=== PATIENT | female | born 1955 | race Caucasian/White ===

== ENCOUNTER 2025-06-12 00:27 | Emergency (ER) | payer MEDICARE, SELFPAY ==
--- OUTSIDE RECORDS SUMMARY | 2025-05-25 09:43 | XMS_ITS | Encounter Summary ---
Author Organization [facility] Address [address] [place] [id number] Care Team Providers Care Administrative Support Assoc Name Role Phone Elaine Russo M.D. Primary Care Provider [phone] Reason for Referral * Outpatient (Routine) - Closed Specialty Diagnoses / Procedures Referred By Wojciech castaneda Referred To Contact Diagnoses Nodule Thyroid Procedures US Thyroid Elaine Russo M.D. [address] [place] [phone] Phone: tel: [facility] Region Referral ID Status Reason Start Date Expiration Date Visits Re quested Visits Authorized [id number] Closed 05/25/2024 05/25/2025 1 1 Reason for Visit * Outpatient (Routine) - Closed Specialty Diagnoses / Procedures Referred By Wojciech castaneda Referred To Contact Diagnoses Nodule Thyroid Procedures US Thyroid Elaine Russo M.D. [address] [place] [phone] Phone: tel: fax: [facility] Region Referral ID Status Reason Start Date Expiration Date Visits Re quested Visits Authorized [id number] Closed 05/25/2024 05/25/2025 1 1 Encounter Details Date Type Department Care Team (Latest Contact Info) Description 05/25/2025 9:43 AM CDT - 05/25/2025 11:59 PM CDT Hospital Encounter Department of Radiology in [address] [phone] Elaine Russo M.D. [address] [place] [phone] Nodule Thyroid Discharge Disposition: Home or Self Care Social History Tobacco Use Types Packs/Day Years Used Date Smoking Tobacco: Former Cigarettes 0 10/31/1981 - 03/05/1986 Passive Smoke Exposure: Never Smokeless Tobacco: Never Comments:Smoked less than 1 pack/ per day, no use since 1983 Alcohol Use Standard Drinks/Week Comments Yes 2 (1 standard drink = 0.6 oz pur e alcohol) Usage of wine or beer rare. Humiliation, Afraid, Rape, and Kick questionnair e Answer Date Recorded Within the last year, have y ou been afraid of your partner or ex-partner? No 05/26/2025 Within the last year, have y ou been humiliated or emotionally abused in other ways by your partner or ex-partner? No Within the last year, have y ou been kicked, hit, slapped, or otherwise physically hurt by your partner or ex-partner? No 05/26/2025 Within the last year, have y ou been raped or forced to have any kind of sexual activity by your partner or ex-partner? No 05/26/2025 Hunger Vital Sign Answer Date Recorded Within the past 12 months, y ou worried that your food would run out before you got the money to buy more. Never true 05/26/20 25 Within the past 12 months, t he food you bought just didn't last and you didn't have money to get more. Never true 05/26/2025 PRAPARE - Transportation Answer Date Re corded In the past 12 months, has l ack of transportation kept you from medical appointments or from getting medications? No 05/04 In the past 12 months, has l ack of transportation kept you from meetings, work, or from getting things needed for daily living? Yes 05/26/2025 [facility] Utilities Answer Date Recorded In the past 12 months has th e electric, gas, oil, or water [employer] threatened to shut off services in your home? No 05/26/2025 Depression Answer Date Recor ded PHQ-9 Total Score (max 27) 10 02/16 Housing Stability Answer Date Recorded What is your living situation today? I have a [facility] place to live 05/26/2025 Education Answer Date Recorded What is the highest level of school you have completed or the highest degree you have received? 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 0 albuterol 90 mcg/actuation inhaler Inhale 2 puffs every 4 (four) hours as needed for wheezing. 8 g 11 4 carboxymethylcellu lose (REFRESH PLUS) 0.5 % ophthalmic solution 1 drop as needed for dry eyes. cephalexin (Keflex) 250 mg capsuleIndications :Cystitis Recurrent Take 1 capsule (250 mg total) by mouth daily. 90 capsule 3 5 11/24/19 26 cholecalciferol (for_VITAMIN D3) 2,000 Unit tablet Take 1 tablet by mouth daily. 7 clotrimazole (LOTRIMIN) 1 % cream Apply 1 Application topically 2 (two) times a day. Apply to rashes. 45 g 3 3 cyanocobalamin (VITAMIN B12) 1,000 mcg tablet Take 1 tablet (1,000 mcg total) by mouth 3 (three) times a week. 100 tablet 11 2 denosumab (PROLIA) 60 mg/mL syringe Inject 1 mL (60 mg total) under the skin every 6 (six) months. 1 mL 02/21/202 2 divalproex (for_DEPAKOTE ER) 500 mg 24 hr tablet Take 2 tablets by mouth at bedtime. 8 DME Gradient compression garments & suppliesIndication s:Lymphedema 4 Unspecified 4 DME Gradient compression garments & suppliesIndication s:Lymphedema DME Order 1 Unspecified 4 dorzolamide-timolo L (Cosopt) 22.3-6.8 mg/mL ophthalmic solution Administer 1 drop into both eyes 2 (two) times a day. 10 mL 11 5 estradioL (Estrace) 0.1 mg/g (0.01%) vaginal cream Apply dime-sized amount to the external urethra 3 nights weekly 42.5 g 5 5 IRON,CARBONYL/ASCO RBIC ACID (VITRON-C ORAL) Take 1 tablet by mouth daily. Anemia 1 latanoprost (Xalatan) 0.005 % ophthalmic solution Administer 1 drop into both eyes at bedtime. 7.5 mL 11 5 multivitamin,tx-mi nerals (Multi-Vitamin HP/Minerals) capsule Take 1 capsule by mouth daily. 1 ondansetron ODT (Zofran-ODT) 4 mg disintegrating tablet Dissolve 1 tablet (4 mg total) in the mouth every 4 (four) hours as needed for nausea for up to 20 doses. for nausea. 20 tablet 5 pantoprazole (Protonix) 40 mg EC tabletIndications: Heartburn TAKE ONE TABLET BY MOUTH EVERY MORNING BEFORE BREAKFAST 90 tablet 3 5 QUEtiapine (SEROqueL) 100 mg tablet Take 2 tablets (200 mg total) by mouth at bedtime. 180 tablet 4 semaglutide (Ozempic) 1 mg/dose (4 mg/3 mL) injectionIndicatio ns:Diabetes Mellitus Type 2 Without Complication (HCC),Morbid Obesity (HCC) Inject 1 mg under the skin every 7 (seven) days. 3 mL 3 5 traMADoL (Ultram) 50 mg tabletIndications: Chronic Pain/Nonacute Pain Take 1 tablet (50 mg total) by mouth every 6 (six) hours as needed for pain Indications: Chronic Pain/Nonacute Pain. 15 tablet 5 UNABLE TO FIND Take 375 each by mouth as needed. Med Name: Advil Dual Action with Acetaminophen. 125mg of Ibuprofen and 250mg of Acetaminophen per tablet. pravastatin (PravachoL) 10 mg tablet Take 1 tablet (10 mg total) by mouth daily. 90 tablet 3 4 05/26/20 25 documented as of this encounter Plan of Treatment Upcoming Encounters Date Type Department Care Team (Latest Contact Info) Description 06/12/2025 9:00 AM CDT Office Visit Department of Family Medicine, [facility], in [address] [phone] Discharge Disposition: Home or Self Care 06/15/2025 10:50 AM CDT Appointment Department of Laboratory Medicine in [address] [place] [phone] Franck Lindo M.D. [address] [place] [phone] 06/16/2025 3:00 PM CDT Office Visit Division of Nephrology and Hypertension in [place], [place] [address] [place] [phone] Franck Lindo M.D. [address] [place] [phone] 06/22/2025 1:00 PM CDT Telemedicine Division of Pain Medicine in [place], [place] [address] [place] [phone] Helen Quigley APRN, COMBINE OPERATOR, M.S. [address] [place] [phone] 06/24/2025 1:00 PM CDT Comprehensive Visit Department of Physical Medicine and Rehabilitation in [address] [phone] Nadiya Ramesh M.D. [address] [place] [phone] Elin Aaron O.T. [address] [place] [phone] 06/25/2025 1:15 PM CDT Clinical Communication Virtual Review in [place], [place] [address] [place] [phone] 06/28/2025 9:00 AM CDT Appointment Department of Radiology, [facility] in [place], [place] [address] [place] [phone] Miguel Yeung M.D. [address] [place] [phone] 06/28/2025 1:00 PM CDT Office Visit Department of Neurologic Surgery in [address] [phone] Miguel Yeung M.D. [address] [place] [phone] 11/23/2025 12:50 PM CDT Appointment Department of Laboratory Medicine in [address] [phone] Nadiya Ramesh M.D. [address] [place] [phone] 11/23/2025 3:00 PM CDT Office Visit Department of Family Medicine, [facility], in [address] [phone] Elaine Russo M.D. [address] [place] [phone] documented as of this encounter Procedures Procedure Name Priority Date/Time Associated Diagnosis Comments US THYROID RAD - Routine (most inpatients and all outpatients) 05/25/2025 10:43 AM CDT Nodule Thyroid documented in this encounter Results * US Thyroid (05/25/2025 10:43 AM CDT) Anatomical Region Laterality Modality Head and Neck, Ultrasound RS T LOS, Ultrasound ARZ LOS, Ultrasound FLA LOS N/A Ultrasound Impressions 05/25/2025 11:17 AM CDT 1. Stable previously sampled 3 cm nodule in the right thyroid lobe. 2. A few previously described small nodules in the right thyroid lobe of up to intermediate suspicion are likely not substantially changed. Narrative 05/25/2025 11:17 AM CDT EXAM: US THYROID COMPARISON: Ultrasound 05/22/2024, additional priors FINDINGS: The right thyroid lobe measures: 1.8 cm x 2.9 cm x 5.7 cm The left thyroid lobe measures: 1.1 cm x 1.1 cm x 5.0 cm The isthmus measures: 2.4 mm in AP diameter. The thyroid parenchyma appears: Multiple nodules with notable nodules described below. A nodule in the mid/lower right thyroid lobe measures 3 cm (previously 3 cm) and has the following features: * composition: solid (1) * echogenicity: isoechoic (0) * shape: not taller than wide (0) * margins: smooth margins (0) * echogenic foci: no echogenic foci (0). The [place] ultrasound score is 1. Prior FNA with benign cytology. This nodule does recategorized as extremely low suspicion. Stable small 8 mm solid mildly hypoechoic nodule in the lateral right mid thyroid lobe. The additional previously described subcentimeter solid hypoechoic nodule at the upper right thyroid lobe near a calcification is additionally likely not substantially changed (best seen on long cine clip series 1, image 160, frame 84). Multiple additional subcentimeter thyroid nodules do not meet size criteria for FNA or follow-up. Lymph nodes: No pathologically enlarged lymph nodes are seen in the neck, with evaluation of levels II-V. The thyroid nodule descriptions and categories are based on the Thyroid Nodule Care Process Model established by the [facility] [place]. [email or web address]/clinical-answers/cnt-20259014/sec-203 47889 The AskMayoExpert Thyroid Nodule CPM states the following recommendations: No suspicion or Extremely low-suspicion nodule: No FNA, no imaging f/u Low-suspicion nodule: FNA if greater than or equal to 25 mm; US f/u in 2-5 yrs if greater than or equal to 15 mm Intermediate-suspicion nodule: FNA if greater than or equal to 15 mm; US f/u in 1-3 yrs if greater than or equal to 10 mm High-suspicion nodule: FNA if greater than or equal to 10 mm (or smaller if desired); US f/u in 1 yr if not FNA Procedure Note Jose Forte Jr., M.D. - 05/25/2025 EXAM: US THYROID COMPARISON: Ultrasound 05/22/2024, additional priors FINDINGS: The right thyroid lobe measures: 1.8 cm x 2.9 cm x 5.7 cm The left thyroid lobe measures: 1.1 cm x 1.1 cm x 5.0 cm The isthmus measures: 2.4 mm in AP diameter. The thyroid parenchyma appears: Multiple nodules with notable nodulesdescribed below. A nodule in the mid/lower right thyroid lobe measures 3 cm (previously 3cm) and has the following features: * composition: solid (1) * echogenicity: isoechoic (0) * shape: not taller than wide (0) * margins: smooth margins (0) * echogenic foci: no echogenic foci (0). The [place] ultrasound score is 1. Prior FNA with benign cytology. Thisnodule does recategorized as extremely low suspicion. Stable small 8 mm solid mildly hypoechoic nodule in the lateral right midthyroid lobe. The additional previously described subcentimeter solid hypoechoic noduleat the upper right thyroid lobe near a calcification is additionallylikely not substantially changed (best seen on long cine clip series 1,image 160, frame 84). Multiple additional subcentimeter thyroid nodules do not meet sizecriteria for FNA or follow-up. Lymph nodes: No pathologically enlarged lymph nodes are seen in the neck,with evaluation of levels II-V. The thyroid nodule descriptions and categories are based on the ThyroidNodule Care Process Model established by the [facility] [place].[email or web address]/clinical-answers/cnt-42957380 /sec- [email or web address] The AskMnyoExpert Thyroid Nodule [facility] states the followingrecommendations: No suspicion or Extremely low-suspicion nodule: No FNA, no imagingf/u Low-suspicion nodule: FNA if greater than or equal to 25 mm; US f/uin 2-5 yrs if greater than or equal to 15 mm Intermediate-suspicion nodule: FNA if greater than or equal to 15 mm;US f/u in 1-3 yrs if greater than or equal to 10 mm High-suspicion nodule: FNA if greater than or equal to 10 mm (orsmaller if desired); US f/u in 1 yr if not FNA IMPRESSION: 1. Stable previously sampled 3 cm nodule in the right thyroid lobe. 2. A few previously described small nodules in the right thyroid lobe ofup to intermediate suspicion are likely not substantially changed. us Elaine Russo M.D. IMG US PROCEDURES Final Res ult documented in this encounter Visit Diagnoses Diagnosis Nodule Thyroid documented in this encounter Additional Health Concerns Assessment Noted Time PHQ-9 Depression Total Score: 10 02/16/ 025 6:08 PM CDT documented as of this encounter Care Teams Administrative Support Assoc Relationship Specialty Start Date End Date Elaine Russo M.D. [address] [place] [phone] PCP - General 02/02/22 Dr. [facility]ist 05/25/24 documented as of this encounter
--- OUTSIDE RECORDS SUMMARY | 2025-05-26 09:20 | XMS_ITS | Encounter Summary ---
[facility] Address [address] [place] [address] Care Team Providers Care Adjunct Professor Of U.S. History Name Role Phone Elaine Russo M.D. Primary Care Provider [phone] Encounter Details Date Type Department Care Team (Latest Contact Info) Description 05/26/2025 9:20 AM CDT - 05/26/2025 11:30 AM CDT Hospital Encounter Department of Laboratory Medicine in [address] [phone] Elaine Russo M.D. [address] [place] [address] [phone] Diabetes Mellitus Type 2 Without Complication (HCC); Nodule Thyroid; Hyperlipidemia; Deficiency Vitamin D; Deficiency Vitamin B12; Deficiency Iron Personal History Discharge Disposition: Home or Self Care Social [...] things needed for daily living? Yes 05/26/2025 [facility] Utilities Answer Date Recorded In the past 12 months has th e electric, gas, oil, or water company threatened to shut off services in your home? No 05/26/2025 Depression Answer Date Recor ded PHQ-9 Total Score (max 27) 10 02/16 Housing Stability Answer Date Recorded What is your living situation today? I have a [facility] place to live 05/26/2025 Education Answer Date Recorded What is the highest level of school you have completed or the highest degree you have received? Bachelor's degree (e.g., BA, AB, BS) 06/07/2019 Comments No Sex and Gender Information Value Date Recorded Sex Assigned at Female 06/15/2021 1:11 PM CDT Legal Sex Female 10:30 AM GUILLOTINE TRIMMER Gender Identity Female 09/04/2017 2:32 PM GUILLOTINE TRIMMER Sexual Orientation Straight 09/04/2017 2: 32 PM GUILLOTINE TRIMMER documented as of this encounter Medications at [...] skin every 6 (six) months. 1 mL 2 divalproex (for_DEPAKOTE ER) 500 mg 24 [...] MORNING BEFORE BREAKFAST 90 tablet 3 5 pravastatin (PravachoL) 10 mg tablet Take 1 tablet (10 mg total) by mouth daily. 90 tablet 3 5 QUEtiapine (SEROqueL) 100 [...] Ibuprofen and 250mg of Acetaminophen per tablet. documented as of this encounter Plan of Treatment Upcoming Encounters Date Type Department Care Team (Latest Contact Info) Description 06/12/2025 9:00 AM CDT Office Visit Department of Family Medicine, [facility], in [place], [place] [address] [place] [phone] Discharge Disposition: Home or Self Care 06/15/2025 10:50 AM CDT Appointment Department of Laboratory Medicine in [place], [place] [address] [place] [address] [place] [phone] Franck Lindo M.D. [address] [place] [phone] 06/16/2025 3:00 PM CDT Office Visit Division of Nephrology and Hypertension in [place], [place] [address] [place] [phone] Franck Lindo M.D. [address] [place] [phone] 06/22/2025 1:00 PM CDT Telemedicine Division of Pain Medicine in [place], [place] [address] [place] [phone] Helen Quigley, UMM, FEEDMOBILE DRIVER, M.S. [address] [place] [phone] 06/24/2025 1:00 PM CDT Comprehensive Visit Department of Physical Medicine and Rehabilitation in [address] [phone] Nadiya Ramesh M.D. [address] [place] [phone] Elin Aaron, OLoree [address] [place] [phone] 06/25/2025 1:15 PM CDT Clinical Communication Virtual Review in [place], [place] [address] [place] [phone] 06/28/2025 9:00 AM CDT Appointment Department of Radiology, [facility], in [place], [place] [address] [place] [phone] Miguel Yeung M.D. [address] [place] [phone] 06/28/2025 1:00 PM CDT Office Visit Department of Neurologic Surgery in [place], [place] [address] [place] [phone] Miguel Yeung M.D. [address] [place] [phone] 11/23/2025 12:50 PM CDT Appointment Department of Laboratory Medicine in [address] [phone] Nadiya Ramesh M.D. [address] [place] [phone] 11/23/2025 3:00 PM CDT Office Visit Department of Family Medicine, [facility], in [address] [phone] Elaine Russo M.D. [address] [place] [address] [phone] documented as of this encounter Procedures Procedure Name Priority Date/Time Associated Diagnosis Comments LIPID PANEL, S Routine 05/26/2025 9:32 AM CDT Hyperlipidemia VITAMIN D, IMMUNOASSAY, TOTAL, S Routine 05/26/2025 9:32 AM CDT Deficiency Vitamin D THYROID FUNCTION CASCADE, S Routine 05/26/2025 9:32 AM CDT Nodule Thyroid IRON AND TOT IRON-BINDING CAPACITY, S/P Routine 05/26/2025 9:32 AM CDT Deficiency Iron Personal History CBC WITH DIFFERENTIAL, B Routine 05/26/2025 9:32 AM CDT Deficiency Vitamin B12 HEMOGLOBIN A1C, B Routine 05/26/2025 9:3 2 AM CDT Diabetes Mellitus Type 2 Without Complication (HCC) GLUCOSE, FASTING, S/P Routine 05/26/2025 9:32 AM CDT Diabetes Mellitus Type 2 Without Complication (HCC) FERRITIN, S Routine 05/26/2025 9:32 AM CDT Deficiency Iron Personal History VITAMIN B12 ASSAY, S Routine 05/26/2025 9:32 AM CDT Deficiency Vitamin B12 COMPREHENSIVE METABOLIC PANEL, S/P Routine 05/26/2025 9:32 AM CDT Diabetes Mellitus Type 2 Without Complication (HCC) documented in this encounter Results * Iron and Total Iron-Binding Capacity (05/26/2025 9:32 AM CDT) Iron 64 35 - 145 mcg/dL 05/26/2025 1:41 PM CDT RDWG Total Iron Binding Capacity 353 250 - 400 mcg/dL 05/26/2025 1:41 PM CDT RDW[facility] Percent Saturation 18 14 - 50 % 05/26/2025 1:41 PM CDT [facility] Blood (Blood, Venous) 05/26/2025 9:32 AM CDT 05/26/2025 1:15 PM CDT us Elaine Russo M.D. LAB BLOOD ADD-ON Final Resu lt [facility] [address] [place] [address], [place] [facility] in [place] [address] [place] [phone] * Ferritin (05/26/2025 9:32 AM CDT) Ferritin, S 152 11 - 328 mcg/L 05/26/2025 1:50 PM CDT RDWG Comment: Biotin has been identified by the supervisor locomotive as a potential interfering substance. Higher concentrations of biotin may be found in multivitamins, hair/nail supplements, and workout supplements. If the result does not match clinical observations, repeat testing after patient refrains from the use of supplements for at least 12 hours. Blood (Blood, Venous) 05/26/2025 9:32 AM CDT 05/26/2025 1:15 PM CDT us Elaine Russo M.D. LAB BLOOD ADD-ON Final Resu lt [facility] [address] [place] [address], [place] R[facility] [place] [address] [place] [phone] * (ABNORMAL) Vitamin B12 Assay (05/26/2025 9:32 AM CDT) Vitamin B12 Assay, S >2000(H) 232 - 1245 ng/L 05/26/2025 4:45 PM CDT ECLR Comment: Biotin has been identified by the supervisor locomotive as a potential interfering substance. Higher concentrations of biotin may be found in multivitamins, hair/nail supplements, and workout supplements. If the result does not match clinical observations, repeat testing after patient refrains from the use of supplements for at least 12 hours. Blood (Blood, Venous) 05/26/2025 9:32 AM CDT 05/26/2025 3:58 PM CDT us Elaine Russo M.D. LAB BLOOD ADD-ON Final Resu lt Performing Organization Address City/[facility]/ZIP Co de Phone Number [facility] [address] [place] [phone], [place] ECLR [facility] [place] [address] * (ABNORMAL) CBC with Differential, Blood (05/26/2025 9:32 AM CDT) Hemoglobin 11.4(L) 11.6 - 15.0 g/dL 05/26/2025 9:43 AM CDT CNFL Hematocrit 35.1(L) 35.5 - 44.9 % 05/26/2025 9:43 AM CDT CNFL Erythrocytes 3.67(L) 3.92 - 5.13 x10(12)/L 05/26/2025 9:43 AM CDT CNFL MCV 95.6 78.2 - 97.9 fL 05/26/2025 9:43 AM CDT CNFL RBC Distrib Width 12.8 12.2 - 16.1 % 05/26/2025 9:43 AM CDT CNFL Platelet Count 186 157 - 371 x10(9)/L 05/26/2025 9:43 AM CDT CNFL Leukocytes 4.8 3.4 - 9.6 x10(9)/L 05/26/2025 9:43 AM CDT CNFL Neutrophils 1.99 1.56 - 6.45 x10(9)/L 05/26/2025 9:43 AM CDT CNFL Lymphocytes 2.25 0.95 - 3.07 x10(9)/L 05/26/2025 9:43 AM CDT CNFL Monocytes 0.38 0.26 - 0.81 x10(9)/L 05/26/2025 9:43 AM CDT CNFL Eosinophils 0.13 0.03 - 0.48 x10(9)/L 05/26/2025 9:43 AM CDT CNFL Basophils <0.04 0.01 - 0.08 x10(9)/L 05/26/2025 9:43 AM CDT CNFL Blood (Blood, Venous) 05/26/2025 9:32 AM CDT 05/26/2025 9:36 AM CDT us Elaine Russo M.D. LAB BLOOD ADD-ON Final Resu lt [facility] [address] [place] [address], [place] CNFL [facility] in [address] [address] * Vitamin D, Immunoassay, Total, Serum (05/26/2025 9:32 AM CDT) Vitamin D, Immunoassay, Total, S 46 20 - 80 ng/mL 05/26/2025 4:44 PM CDT ECLR Comment: Optimum levels within the healthy population are 20-50, patients with bone disease may benefit from high levels within this range Blood (Blood, Venous) 05/26/2025 9:32 AM CDT 05/26/2025 3:58 PM CDT us Elaine Russo M.D. LAB BLOOD ADD-ON Final Resu lt [facility] [address] [place] [phone], [place] ECLR [facility] in [place] [address] [place] [phone] * Lipid Panel (05/26/2025 9:32 AM CDT) Triglycerides 128 mg/dL 05/26/2025 10:05 AM CDT CNFL Comment: ----REFERENCE VALUE---- Normal: <150 mg/dL Borderline High: 150-199 mg/dL High: 200-499 mg/dL Very High: > or =500 mg/dL Cholesterol, Total 156 mg/dL 2024 10:05 AM CDT CNFL Comment: ----REFERENCE VALUE---- Desirable: < 200 mg/dL Borderline High: 200 - 239 mg/dL High: > or = 240 mg/dL Cholesterol, LDL, Calculated 63 mg/dL 05/26/2025 10:05 AM CDT CNFL Comment: ----REFERENCE VALUE---- Desirable: <100 mg/dL Above Desirable: 100-129 mg/dL Borderline High: 130-159 mg/dL High: 160-189 mg/dL Very High: >=190 mg/dL ----ADDITIONAL INFORMATION---- LDL cholesterol calculated using the Edwards/NIH equation. Cholesterol, HDL 71 >=50 mg/dL 05/26/20 10:05 AM CDT CNFL Cholesterol, Non-HDL, Calculated 85 mg/dL 05/26/2025 10:05 AM CDT CNFL Comment: ----REFERENCE VALUE---- Desirable: <130 mg/dL Above Desirable: 130-159 mg/dL Borderline High: 160-189 mg/dL High: 190-219 mg/dL Very High: > or =220 mg/dL Fasting (8 HR or more) Yes 05/26/2025 9:33 AM CDT CNFL Blood (Blood, Venous) 05/26/2025 9:32 AM CDT 05/26/2025 9:36 AM CDT us Elaine Russo M.D. LAB BLOOD ADD-ON Final Resu lt Performing Organization Address [facility]/ZIP [place] [address], [place] [address] * Thyroid Function [place] (05/26/2025 9:32 AM CDT) TSH, Sensitive 2.3 0.3 - 4.2 mIU/L 05/26/2025 12:05 PM CDT CNFL Blood (Blood, Venous) 05/26/2025 9:32 AM CDT 05/26/2025 9:36 AM CDT us Elaine Russo M.D. LAB BLOOD ADD-ON Final Resu lt Performing Organization Address [facility] Co de Phone Number [address] [address], [place] [address] * (ABNORMAL) Glucose, Fasting (05/26/2025 9:32 AM CDT) Glucose, P 113(H) 70 - 100 mg/dL 05/26/2025 9:59 AM CDT CNFL Last Intake 13 hr 05/26/2025 9:36 AM CDT CNFL Blood (Blood, Venous) 05/26/2025 9:32 AM CDT 05/26/2025 9:36 AM CDT us Elaine Russo M.D. LAB BLOOD NON ADD-ON Final Result [facility] [address] [place] [phone], [place] CNFL [facility] in [address] [address] * (ABNORMAL) Comprehensive Metabolic Panel (05/26/2025 9:32 AM CDT) Potassium, P 3.9 3.6 - 5.2 mmol/L 05/26/2025 10:05 AM CDT CNFL Sodium, P 141 135 - 145 mmol/L 05/26/2025 10:05 AM CDT CNFL Chloride, P 106 98 - 107 mmol/L 05/26/2025 10:05 AM CDT CNFL Bicarbonate, P 24 22 - 29 mmol/L 05/26/2025 10:05 AM CDT CNFL Anion Gap, P 11 7 - 15 05/26/2025 10:05 AM CDT CNFL BUN (Blood Urea Nitrogen), P 16 6 - 21 mg/dL 05/26/2025 10:05 AM CDT CNFL Creatinine 1.25(H) 0.59 - 1.04 mg/dL 05/26/2025 10:05 AM CDT CNFL Estimated GFR (eGFR) 47(L) >=60 mL/min/BS A 05/26/2025 10:05 AM CDT CNFL Comment: Estimated GFR calculated using the 2020 CKD_EPI creatinine equation. Calcium, Total, P 9.6 8.8 - 10.2 mg/dL 05/26/2025 10:05 AM CDT CNFL Glucose, P CANCELED mg/dL 05/26/2025 9:36 AM CDT CNFL Comment: Duplicate test request. Result canceled by the ancillary. Protein, Total, P 6.1(L) 6.3 - 7.9 g/dL 05/26/2025 10:05 AM CDT CNFL Albumin, P 3.7 3.5 - 5.0 g/dL 05/26/2025 10:05 AM CDT CNFL Aspartate Aminotransferase (AST), P 15 8 - 43 U/L 05/26/2025 10:05 AM CDT CNFL Alkaline Phosphatase, P 57 35 - 104 U/L 05/26/2025 10:05 AM CDT CNFL Alanine Aminotransferase (ALT), P 11 7 - 45 U/L 05/26/2025 10:05 AM CDT CNFL Bilirubin, Total, P 0.6 0.0 - 1.2 mg/dL 05/26/2025 10:05 AM CDT CNFL Blood (Blood, Venous) 05/26/2025 9:32 AM CDT 05/26/2025 9:36 AM CDT Elaine Russo M.D. LAB BLOOD ADD-ON Final Resu lt Performing Organization Address City/[facility] Co de Phone Number [facility] [address] [place] [address], [address] [address] * (ABNORMAL) Hemoglobin A1c (05/26/2025 9:32 AM CDT) Hemoglobin A1c, B 5.9(H) 4.2 - 5.6 % 05/26/2025 10:04 AM CDT CNFL Comment: Hemoglobin A1c values of 5.7-6.4 percent indicate an increased risk for developing diabetes mellitus. In diabetic patients, HbA1c goals should be discussed with healthcare provider. Blood (Blood, Venous) 05/26/2025 9:32 AM CDT 05/26/2025 9:36 AM CDT us Elaine Russo M.D. LAB BLOOD ADD-ON Final Resu lt [facility] [address] [place] [address], [address] [address] documented in this encounter Visit Diagnoses Diagnosis Diabetes Mellitus Type 2 Without Complication (HCC) Nodule Thyroid Hyperlipidemia Deficiency Vitamin D Deficiency Vitamin B12 Deficiency Iron Personal History documented in this encounter Additional Health Concerns Assessment Noted Time PHQ-9 Depression Total Score: 10 02/16/2 025 6:08 PM CDT documented as of this encounter Care Teams Adjunct Professor Of U.S. History Relationship Specialty Start Date End Date Elaine Russo M.D. [address] [place] [phone] PCP - General 02/02/22 Dr. [facility] 05/25/24 documented as of this encounter
--- OUTSIDE RECORDS SUMMARY | 2025-05-26 10:20 | XMS_ITS | Encounter Summary ---
Author Organization [facility] Address [address] [place] [id number] Care Team Providers Care Eyelet Machine Operator Name Role Phone Elaine Russo M.D. Primary Care Provider [phone] Reason for Referral * Outpatient (Routine) - Authorized Specialty Diagnoses / Procedures Referred By Wojciech castaneda Referred To Contact Family Medicine Nadiya Ramesh M.D. [address] [place] [phone] Phone: tel: fax: [facility] Referral ID Status Reason Start Date Expiration Date V isits Requested Visits Authorized [id number] Authorized 05/26/2025 11/25/2026 1 1 * Outpatient (Routine) - Closed Specialty Diagnoses / Procedures Referred By Wojciech castaneda Referred To Contact Diagnoses Pain Chest Procedures ECG 12 Lead AK EKG 12 LEAD W I&R Nadiya Ramesh M.D. [address] [place] [phone] Phone: tel: [facility] Region Referral ID Status Reason Start Date Expiration Date Visits Re quested Visits Authorized [id number] Closed 05/26/2025 08/26/2026 1 1 * Physical Therapy (Routine) - Authorized Specialty Diagnoses / Procedures Referred By Wojciech castaneda Referred To Contact Diagnoses Lymphedema Procedures PT or OT eval and treat (first available) Nadiya Ramesh M.D. [address] [place] [phone] Phone: tel: fax: [facility] Referral ID Status Reason Start Date Expiration Date V isits Requested Visits Authorized [id number] Authorized 05/26/2025 09/01/2025 1 1 Reason for Visit * Reason Comments Chronic Disease Management Has been havi ng dizzy spells and lightheadedness on and off. Also, experiencing a brief shortness of breath episodes that come on fast and go away quickly. Has been having frequent headaches. Immunizations Would like flu vacci ne, concerned about coverage for covid vaccine * Outpatient (Routine) - Closed Specialty Diagnoses / Procedures Referred By Wojciech castaneda Referred To Contact Family Medicine Diagnoses Diabetes Mellitus Type 2 Without Complication (HCC) Neuropathy Nodule Thyroid Tremor Essential Deficiency Vitamin D Hyperlipidemia Deficiency Vitamin B12 Deficiency Iron Personal History Elaine Russo M.D. [address] [place] [phone] Phone: tel: fax: [facility] Referral ID Status Reason Start Date Expiration Date Visits Re quested Visits Authorized [id number] Closed 06/07/2024 12/07/2025 1 1 Encounter Details Date Type Department Care Team (Late st Contact Info) Description 05/26/2025 10:20 AM CDT Office Visit Department of Family Medicine, [facility], in [address] [phone] Nadiya Ramesh M.D. [address] [place] [phone] Annual Medicare Examination Return (Primary Dx); Pain Chest; Shortness Of Breath; Headache Unspecified; Lymphedema; Diabetes Mellitus Type 2 Without Complication (HCC); Bipolar I Disorder (HCC); Anxiety Generalized Disorder; Other Hospitality Coordinator Current Drug Therapy Social History Tobacco Use Types Packs/Day Years Used Date Smoking Tobacco: Former Cigarettes 0 10/31/1981 - 03/05/1986 Passive Smoke Exposure: Never Smokeless Tobacco: Never Tobacco Cessation:Counseling Given: Not Answered Comments:Smoked less than 1 pack/ per day, [...] things needed for daily living? Yes 05/26/2025 [facility] Utilities Answer Date Recorded In the past 12 months has e electric, gas, oil, or water company threatened to shut off services in your home? No 05/26/2025 Depression Answer Date Recor ded PHQ-9 Total Score (max 27) 10 02/16 Housing Stability Answer Date Recorded What is your living situation today? I have a [facility] place to live 05/26/2025 Education Answer Date Recorded What is the highest level of school you have completed or the highest degree you have received? Bachelor's degree (e.g., BA, AB, BS) 06/07/2019 Comments No Sex and Gender Information Value Date Recorded Sex Assigned at Female 06/15/2021 1:11 PM CDT Legal Sex Female 10:30 AM FILLER SHREDDER HELPER Gender Identity Female 09/04/2017 2:32 PM FILLER SHREDDER HELPER Sexual Orientation Straight 09/04/2017 2: 32 PM FILLER SHREDDER HELPER documented as of this encounter Last Filed Vital Signs Vital Sign Reading Time Taken Comments Blood Pressure 124/71 05/26/2025 9:46 AM CDT Pulse 91 05/26/2025 9:46 AM CDT Temperature 36.1 C (97 F) 05/26/2025 9:46 AM CDT Respiratory Rate - - Oxygen Saturation 95% 05/26/2025 9:46 AM CDT room air Inhaled Oxygen Concentration - - Weight 115 kg (252 lb 10.4 oz) 05/26/2025 9:46 A M CDT Height 160 cm (5' 2.99) 05/26/2025 9:46 AM CDT Body Mass Index 44.77 05/26/2025 9:46 AM CDT documented in this encounter Progress Notes * Nadiya Ramesh M.D. - 05/26/2025 10:20 AM CDT DATE OF VISIT: 05/26/2025 SUBJECTIVE CHIEF COMPLAINT / REASON FOR VISIT Britt Calderon is a 69 y.o. female who presents for evaluation of Chronic Disease Management (Has been having dizzy spells and lightheadedness on and off. Also, experiencing a brief shortness of breath episodes that come on fast and go away quickly. Has been having frequent headaches. )and Immunizations (Would like flu vaccine, concerned about coverage for covid vaccine). The patient verbally consented to an audio recording of their visit to assist with the completion of documentation. History of Present Illness Mrs. Britt Calderon is a 69 year old female who presents with sinus- like headaches, shortness of breath, chest pain, and dizziness. She experiences intermittent sinus-like headaches resembling sinus infection symptoms, relieved by Tylenol. A previous doctor noted a sinus defect, but no follow-up was conducted. She has brief episodes of shortness of breath occurring both at rest and with activity, resolving quickly and not associated with chest pain. Chest pain is described as fleeting, sometimes occurring at rest, with a throbbing sensation ratherthan a racing heartbeat. She has fibromyalgia and arthritis, which limit her physical activity. She has a history of meningioma, diagnosed after experiencing numbness and tingling in her head following a dental procedure. She underwent a gamma knife procedure in July of the previous year and is scheduled for a follow-up MRI next month. She experiences significant swelling in her legs and has been seen at a lymph clinic in the past. She uses compression pumps at home but does not use them as frequently as needed. She is currently taking tramadol for pain management, with a prescription allowing for 15 tablets amonth, but she uses it sparingly. She was previously on lisinopril for hypertension, which was discontinued after achieving good blood pressure readings. OBJECTIVE VITAL SIGNS BP 124/71 (BP Location: Left arm, Patient Position: Sitting, Cuff Size: Large) Pulse 91 Temp 36.1 ??C (Temporal) Ht 160 cm Wt 115 kg SpO2 95% Comment: room air BMI 44.77 kg/m?? Physical Exam Vitals reviewed. Constitutional General: She is not in acute distress. HENT Right Ear: Tympanic membrane normal. Left Ear: Tympanic membrane normal. Mouth/Throat: Mouth: Mucous membranes are moist. Pharynx: No posterior oropharyngeal erythema. Eyes Conjunctiva/sclera: Conjunctivae normal. Neck Thyroid: No thyromegaly. Cardiovascular Rate and Rhythm: Normal rate and regular rhythm. Pulmonary Effort: Pulmonary effort is normal. Breath sounds: Normal breath sounds. No wheezing, rhonchi or rales. Abdominal General: Bowel sounds are normal. There is no distension. Palpations: Abdomen is soft. Tenderness: There is no abdominal tenderness. Musculoskeletal Right lower leg: No edema. Left lower leg: No edema. Lymphadenopathy Cervical: No cervical adenopathy. Skin General: Skin is warm and dry. Neurological Mental Status: She is alert. Mental status is at baseline. Psychiatric Mood and Affect: Mood normal. Behavior: Behavior normal. ASSESSMENT / PLAN #1 Annual Medicare Examination Return Reviewed routine health maintenance with patient. Screening is recommended according to guidelines for the patient's age as below. Encourage healthy diet and regular exercise. Follow up in 1 year forthe next health maintenance exam. Health Maintenance Topic Date Due RSV vaccine - (32-36 weeks) or 50+ years (1 - Risk 50-74 years 1-dose series) Never done Bone Density Scan Monitoring 05/20/2025 Diabetic Office Visit with Foot Exam 05/25/2025 Mammogram 09/11/2025 COVID-19 Vaccine ( season) 2025 Hemoglobin A1C 11/23/2025 Visit: Chronic Disease, age 18+ 02/26/2026 Diabetic Eye Exam 02/26/2026 Urine Albumin 03/23/2026 Colorectal Cancer Screening 05/18/2026 Creatinine Level (Kidney Function Test) 05/26/2026 Office Visit for Blood Pressure Check / Re-check 05/26/2026 Visit: Medicare Annual Wellness 05/27/2026 Lipid (Cholesterol) Screening 05/26/2030 DTaP,Tdap,and Td Vaccines (6 - Td or Tdap) 12/29/2033 Depression Screening (Annual PHQ-2) Completed Fall Risk Screen (Annual) Completed Pneumococcal vaccine (50+ years) Completed Hepatitis B Vaccines Completed Influenza Vaccine Completed Hepatitis C Screening Completed Zoster Vaccines Completed IPV Vaccines Aged Out HPV Vaccines Aged Out Glucose Test for Med Monitoring Discontinued #2 Pain Chest #3 Shortness Of Breath Intermittent chest pain and shortness of breath likely non-cardiac. Occurs at rest, not exertion-related, episodes are brief. Will obtain EKG today. If normal, continue to monitor symptoms and follow-up if worsening. #4 Headache Unspecified Likely tension headaches. Possible related to sinuses/allergies. No red flag symptoms. Continue to monitor. She has an MRI next month for meningioma surveillance. #5 Lymphedema Patient desires referral back to OT for management of symptoms. Referral placed. #6 Diabetes Mellitus Type 2 Without Complication (HCC) Lab Results Component Value Date HGBA1C 5.9 (H) 05/26/2025 HGBA1C 6.2 (H) 08/17/2024 HGBA1C 6.1 (H) 05/20/2024 Hemoglobin A1c is at goal. - Medications: Continue current regimen. - Diet: Body mass index is 44.77 kg/m??. Reviewed healthy dietary practices. - Follow-up office visit in 6 months with labs. #7 Bipolar I Disorder (HCC) #8 Anxiety Generalized Disorder #9 Other Prison Current Drug Therapy Valproic acid level added to labs today. documented in this encounter Plan of Treatment Upcoming Encounters Date Type Department Care Team (Latest Contact Info) Description 06/12/2025 9:00 AM CDT Office Visit Department of Family Medicine, [facility], in [address] [phone] Discharge Disposition: Home or Self Care 06/15/2025 10:50 AM CDT Appointment Department of Laboratory Medicine in [address] [facility] [place] [phone] Franck Lindo M.D. [address] [place] [phone] 06/16/2025 3:00 PM CDT Office Visit Division of Nephrology and Hypertension in [place], [place] [address] [place] [phone] Franck Lindo M.D. [address] [place] [phone] 06/22/2025 1:00 PM CDT Telemedicine Division of Pain Medicine in [place], [place] [address] [place] [phone] Helen Quigley, UMM, GOOD HUM[employer] VENDOR, M.S. [address] [place] [phone] 06/24/2025 1:00 PM CDT Comprehensive Visit Department of Physical Medicine and Rehabilitation in [address] [phone] Nadiya Ramesh M.D. [phone] [phone] Elin Aaron O.T. [address] [place] [phone] 06/25/2025 1:15 PM CDT Clinical Communication Virtual Review in [place], [place] [address] [place] [phone] 06/28/2025 9:00 AM CDT Appointment Department of Radiology, [facility] in [place], [place] [address] [place] [phone] Miguel Yeung M.D. [address] [place] [phone] 06/28/2025 1:00 PM CDT Office Visit Department of Neurologic Surgery in [place], [place] [address] [place] [phone] Miguel Yeung M.D. [address] [place] [phone] 11/23/2025 12:50 PM CDT Appointment Department of Laboratory Medicine in [address] [phone] Nadiya Ramesh M.D. [address] [place] [phone] 11/23/2025 3:00 PM CDT Office Visit Department of Family Medicine, [facility], in [address] [phone] Elaine Russo M.D. [address] [place] [phone] Scheduled Orders Name Type Priority Associated Diagnoses Orde r Schedule Hemoglobin A1c Lab Routine Diabetes Mellitus Type 2 Without Complication (HCC) Expected: 11/23/2025, Expires: 08/25/2026 Scheduled Referrals Name Type Priority Associated Diagnoses Orde r Schedule Family Medicine office visit (clinic) Outpatient Referral Routine Expected: 11/23/2025, Expires: 08/25/2026 documented as of this encounter Procedures Procedure Name Priority Date/Time Associated Diagnosis Comments VALPROIC ACID LEVEL, TOT, S Routine 05/26/2025 11:18 AM CDT Bipolar I Disorder (HCC) Anxiety Generalized Disorder Other Prison Current Drug Therapy documented in this encounter Results * Valproic Acid, Total (05/26/2025 11:18 AM CDT) Valproic Acid, Tot, S 70 50 - 125 mcg/mL 05/26/2025 1:46 PM CDT [facility] Blood (Blood, Venous) 05/26/2025 11:18 AM CDT 05/26/2025 1:14 PM CDT Bharathi Rain M.D. LAB BLOOD ADD-ON Final Result [facility] [address] [place] [address], [facility] in [place] [address] [place] [address] * ECG 12 Lead (05/26/2025 11:05 AM CDT) Ventricular Rate ECG/Min 65 BPM MUSE AK Interval 156 ms MUSE QRSD Interval 102 ms MUSE QT Interval 374 ms MUSE QTC Interval 388 ms MUSE P [place] 32 degrees MUSE R [place] -7 degrees MUSE T Wave [place] 13 degrees MUSE 05/26/2025 11:0 5 AM CDT 05/26/2025 11:51 AM CDT Impressions MUSE - 05/26/2025 11:51 AM CDT Sinus rhythm Nonspecific T wave abnormality When compared with ECG of 13-Jun-2021 11:34, No significant change was found Reviewed by ERICH Delgado Narrative Procedure Note Ervin Lomeli M.D. - 05/26/2025 IMPRESSION: Sinus rhythm Nonspecific T wave abnormality When compared with ECG of 13-Jun-2021 11:34, No significant change was found Reviewed by ERICH Delgado us Nadyia Ramesh M.D. ECG ORDERABLES Final Resu lt MUSE NA documented in this encounter Visit Diagnoses Diagnosis Annual Medicare Examination Return- Primary Pain Chest Shortness Of Breath Headache Unspecified Lymphedema Diabetes Mellitus Type 2 Without Complication (HCC) Bipolar I Disorder (HCC) Anxiety Generalized Disorder Other Hospitality Coordinator Current Drug Therapy Pain Chest documented in this encounter Additional Health Concerns Assessment Noted Time PHQ-9 Depression Total Score: 10 025 6:08 PM CDT documented as of this encounter Care Teams Eyelet Machine Operator Relationship Specialty Start Date End Date Elaine Russo M.D. [address] [place] [phone] PCP - General 02/02/22 Dr. [facility]root [facility] Dentist 05/25/24 documented as of this encounter
--- OUTSIDE RECORDS SUMMARY | 2025-05-26 11:00 | XMS_ITS | Encounter Summary ---
Author Organization [facility] Address [address] [place] [address] Care Team Providers Care Gate Guard Name Role Phone Elaine Russo M.D. Primary Care Provider [phone] Reason for Referral * Outpatient (Routine) - Authorized Specialty Diagnoses / Procedures Referred By Wojciech castaneda Referred To Contact Nadiya Ramesh M.D. [address] [place] [phone] Phone: tel: [facility] Region Referral ID Status Reason Start Date Expiration Date V isits Requested Visits Authorized [id number] Authorized 05/26/2025 11/25/2026 1 1 Scheduling Instructions 12-Month Medicare Visit Reason for Visit * Reason Comments Medicare Annual Wellness Visit Subsequen t Nurse Visit * Outpatient (Routine) - Closed Specialty Diagnoses / Procedures Referred By Contac t Referred To Contact Elaine Russo M.D. [address] [place] [phone] Phone: tel: fax: [facility] Region Referral ID Status Reason Start Date Expiration Date Visits Re quested Visits Authorized [id number] Closed 05/25/2024 11/24/2025 1 1 Encounter Details Date Type Department Care Team (Late st Contact Info) Description 05/26/2025 11:00 AM CDT Office Visit Department of Family Medicine, [facility], in [address] [phone] Elaine Russo M.D. [address] [place] [phone] Kenya Rico R.N. [address] [place] [phone] Annual Medicare Examination Return (Primary Dx) Social History Tobacco Use Types Packs/Day Years [...] things needed for daily living? Yes 05/26/2025 [facility] Utilities Answer Date Recorded In the past 12 months has th e electric, gas, oil, or water company threatened to shut off services in your home? No 05/26/2025 Depression Answer Date Recor ded PHQ-9 Total Score (max 27) 10 02/16 Housing Stability Answer Date Recorded What is your living situation today? I have a [facility] place to live 05/26/2025 Education Answer Date Recorded What is the highest level of school you have completed or the highest degree you have received? Bachelor's degree (e.g., BA, AB, BS) 06/07/2019 Comments No Sex and Gender Information Value Date Recorded Sex Assigned at Female 06/15/2021 1:11 PM CDT Legal Sex Female 10:30 AM GALLERY INTERN Gender Identity Female 09/04/2017 2:32 PM GALLERY INTERN Sexual Orientation Straight 09/04/2017 2: 32 PM GALLERY INTERN documented as of this encounter Progress Notes * Kenya Rico RChrisN. - 05/26/2025 11:00 AM CDT HEALTH ASSESSMENT Reason For Visit Patient presents with Medicare Annual Wellness Visit Subsequent Nurse Visit Face to Face The following portions of the patient's history were reviewed and updated as appropriate: allergies, medications, family history, social history, surgical history and care team/suppliers. VITALS Blood Pressure: 124/71 (05/26/2025 9:46 AM) Temperature: 36.1 ??C (05/26/2025 9:46 AM) Temp Source: Temporal (05/26/2025 9:46 AM) Pulse Rate: 91 (05/26/2025 9:46 AM) BMI (Calculated): 44.8 kg/m?? (05/26/2025 9:46 AM) SpO2: 95 % (room air) (05/26/2025 9:46 AM) Height: 160 cm (05/26/2025 9:46 AM) Weight: 115 kg (05/26/2025 9:46 AM) Health Risk Assessment and Social Drivers of Health Health Risk Assessment (HRA) completed and reviewed: Yes Social Drivers of Health (SDOH) questionnaires were reviewed during this visit. The following concerns were prioritized to be addressed: Transportation needs. Concern: at times patient has trouble getting to activities that promote wellness and socialization Provided patient with Senior Linkage Line number and encouraged to ask friends if they would be willing to come and visit the patient at home when she is not able to get transportation. Spent 10 minutes reviewing the [facility] questionnaire responses with the patient. Depression Screening PHQ-2 Score: (Patient-Rptd) 2 PHQ-9 Total Score (max 27): (Patient-Rptd) 10 Cognitive Assessment Cognitive function assessed by direct observation without concerns. Current Opioid Use None Education regarding non-opioid options for pain management not applicable at this time. FUNCTIONAL/HOME ENVIRONMENT History of falls: Have you fallen within the last year or do you fear you might fall?: (Patient-Rptd) Yes (05/26/2025 9:22 AM) Home Safety Patient's home contains the following: Throw Rugs No. Adequate lighting: Yes. Slippery bathtub and/or shower surfaces: No. Grab bars installed in the bathroom: Yes. Handrails on steps/stairs: Yes. Functional smoke/carbon monoxide alarms: Yes. Patient is reminded to change the batteries every 6 months if device is not A/C powered or hard-wired into the home. Advance Directive Advance Directives: Received 10/02/2017 Advance directive completed and a copy is on file. Patient confirms that healthcare agents listed are still current and the advance directive is up to date. No further action required at this time. Preventive Services Schedule Health Maintenance Topic Date Due RSV vaccine - (32-36 weeks) or 60+ years (1 - Risk 60-74 years 1-dose series) Never done COVID-19 Vaccine ( season) 2025 Influenza Vaccine (1) 05/03/2025 Bone Density Scan Monitoring 05/20/2025 Diabetic Office Visit with Foot Exam 05/25/2025 Visit: Medicare Annual Wellness 05/26/2025 Mammogram 09/11/2025 Hemoglobin A1C 11/23/2025 Visit: Chronic Disease, age 18+ 02/26/2026 Diabetic Eye Exam 02/26/2026 Urine Albumin 03/23/2026 Colorectal Cancer Screening 05/18/2026 Creatinine Level (Kidney Function Test) 05/26/2026 Office Visit for Blood Pressure Check / Re-check 05/26/2026 Lipid (Cholesterol) Screening 05/26/2030 DTaP,Tdap,and Td Vaccines (6 - Td or Tdap) 12/29/2033 Depression Screening (Annual PHQ-2) Completed Fall Risk Screen (Annual) Completed Pneumococcal vaccine (50+ years) Completed Hepatitis B Vaccines Completed Hepatitis C Screening Completed Zoster Vaccines Completed IPV Vaccines Aged Out HPV Vaccines Aged Out Glucose Test for Med Monitoring Discontinued Pt received Flu and Covid vaccinations today. Deferred RSV. After Visit Summary (AVS) reviewed and patient will access via patient online services documented in this encounter Plan of Treatment Upcoming Encounters Date Type Department Care Team (Latest Contact Info) Description 06/12/2025 9:00 AM CDT Office Visit Department of Family Medicine, [facility], in [address] [phone] Discharge Disposition: Home or Self Care 06/15/2025 10:50 AM CDT Appointment Department of Laboratory Medicine in [place], [place] [address] [place] [address] [place] [phone] Franck Lindo M.D. [address] [place] [phone] 06/16/2025 3:00 PM CDT Office Visit Division of Nephrology and Hypertension in [place], [place] [address] [place] [phone] Franck Lindo M.D. [address] [place] [phone] 06/22/2025 1:00 PM CDT Telemedicine Division of Pain Medicine in [place], [place] [address] [place] [phone] Helen Quigley, INSPECTOR PRINTED CIRCUIT BOARDS, VISUAL EDUCATION DIRECTOR, M.S. [address] [place] [phone] 06/24/2025 1:00 PM CDT Comprehensive Visit Department of Physical Medicine and Rehabilitation in [place], [place] [address] [place] [phone] Nadiya Ramesh M.D. [address] [place] [phone] Elin Aaron O.T. [address] [place] [phone] 06/25/2025 1:15 PM CDT Clinical Communication Virtual Review in [place], [place] 200 [place] [phone] 06/28/2025 9:00 AM CDT Appointment Department of Radiology, [facility] in [place], [place] [address] [place] [phone] Miguel Yeung M.D. [address] [place] [phone] 06/28/2025 1:00 PM CDT Office Visit Department of Neurologic Surgery in [place], [place] [address] [place] [phone] Miguel Yeung M.D. [address] [place] [phone] 11/23/2025 12:50 PM CDT Appointment Department of Laboratory Medicine in [address] [phone] Nadiya Ramesh M.D. [address] [place] [phone] 11/23/2025 3:00 PM CDT Office Visit Department of Family Medicine, [facility], in [address] [phone] Elaine Russo M.D. [address] [phone] Scheduled Referrals Name Type Priority Associated Diagnoses Orde r Schedule Primary Care nurse visit (clinic) - [facility] Region; Medicare Annual Wellness Outpatient Referral Routine Expected: 05/26/2026 (Approximate), Expires: 08/25/2026 documented as of this encounter Visit Diagnoses Diagnosis Annual Medicare Examination Return- Primary documented in this encounter Additional Health Concerns Assessment Noted Time PHQ-9 Depression Total Score: 10 02/16/ 025 6:08 PM CDT documented as of this encounter Care Teams Gate Guard Relationship Specialty Start Date End Date Elaine Russo M.D. [address] [phone] PCP - General 02/02/22 Dr. Caro-Lizzie Dental Dentist 05/25/24 documented as of this encounter
--- OUTSIDE RECORDS SUMMARY | 2025-05-26 11:31 | XMS_ITS | Encounter Summary ---
Author Organization [facility] Address [address] [place] [address] Care Team Providers Care Flash Drier Operator Name Role Phone Eliane Russo M.D. Primary Care Provider [phone] Reason for Referral * Outpatient (Routine) - Closed Specialty Diagnoses / Procedures Referred By Yonathanac t Referred To Contact Diagnoses Pain Chest Procedures ECG 12 Lead NJ EKG 12 LEAD W I&R Nadiya Ramesh M.D. [address] [place] [phone] Phone: tel: fax: [facility] Referral ID Status Reason Start Date Expiration Date Visits Re quested Visits Authorized [id number] Closed 05/26/2025 08/26/2026 1 1 Reason for Visit * Outpatient (Routine) - Closed Specialty Diagnoses / Procedures Referred By Contac t Referred To Contact Diagnoses Pain Chest Procedures ECG 12 Lead NJ EKG 12 LEAD W I&R Nadiya Ramesh M.D. [address] [phone] Phone: tel: fax: [facility] Region Referral ID Status Reason Start Date Expiration Date Visits Re quested Visits Authorized [id number] Closed 05/26/2025 08/26/2026 1 1 Encounter Details Date Type Department Care Team (Latest Contact Info) Description 05/26/2025 11:31 AM CDT - 05/26/2025 11:59 PM CDT Hospital Encounter Department of Radiology in [address] [phone] Nadiya Ramesh M.D. [address] [place] [phone] Pain Chest Discharge Disposition: Home or Self Care Social [...] things needed for daily living? Yes 05/26/2025 [facility] Utilities Answer Date Recorded In the past 12 months has th e electric, gas, oil, or water company threatened to shut off services in your home? No 05/26/2025 Depression Answer Date Recor ded PHQ-9 Total Score (max 27) 10 02/16 Housing Stability Answer Date Recorded What is your living situation today? I have a [facility] place to live 05/26/2025 Education Answer Date Recorded What is the highest level of school you have completed or the highest degree you have received? Bachelor's degree (e.g., BA, AB, BS) 06/07/2019 Comments No Sex and Gender Information Value Date Recorded Sex Assigned at Female 06/15/2021 1:11 PM CDT Legal Sex Female 10:30 AM OPERATIONS COORDINATOR Gender Identity Female 09/04/2017 2:32 PM OPERATIONS COORDINATOR Sexual Orientation Straight 09/04/2017 2: 32 PM OPERATIONS COORDINATOR documented as of this encounter Medications at [...] CDT Office Visit Department of Family Medicine, [facility], in [address] [phone] Discharge Disposition: Home or Self Care 06/15/2025 10:50 AM CDT Appointment Department of Laboratory Medicine in [place], [place] [address] [place] [address] [place] [phone] Franck Lindo M.D. [address] [place] [phone] 06/16/2025 3:00 PM CDT Office Visit Division of Nephrology and Hypertension in [place], [place] [address] [place] [phone] Franck Lindo M.D. [address] [place] [phone] 06/22/2025 1:00 PM CDT Telemedicine Division of Pain Medicine in [place], [place] [address] [place] [phone] Helen Quigley, UMM, BOILER BLOWER, M.S. [address] [place] [phone] 06/24/2025 1:00 PM CDT Comprehensive Visit Department of Physical Medicine and Rehabilitation in [address] [phone] Nadiya Ramesh M.D. [address] [place] [phone] Elin Aaron O.T. [address] [place] [phone] 06/25/2025 1:15 PM CDT Clinical Communication Virtual Review in [place], [place] 200 [place] [phone] 06/28/2025 9:00 AM CDT Appointment Department of Radiology, [facility] in [place], [place] [address] [place] [phone] Miguel Yeung M.D. [address] [place] [phone] 06/28/2025 1:00 PM CDT Office Visit Department of Neurologic Surgery in [place], [place] [address] [place] [phone] Miguel eYung M.D. [address] [place] [phone] 11/23/2025 12:50 PM CDT Appointment Department of Laboratory Medicine in [address] [phone] Nadiya Ramesh M.D. [address] [place] [phone] 11/23/2025 3:00 PM CDT Office Visit Department of Family Medicine, [facility], in [address] [phone] Elaine Russo M.D. [address] [place] [phone] documented as of this encounter Procedures Procedure Name Priority Date/Time Associated Diagnosis Comments ECG Routine 05/26/2025 11:05 AM CDT Pain Chest documented in this encounter Results * ECG 12 Lead (05/26/2025 11:05 AM CDT) Ventricular Rate ECG/Min 65 BPM MUSE NJ Interval 156 ms MUSE QRSD Interval 102 ms MUSE QT Interval 374 ms MUSE QTC Interval 388 ms MUSE P [place] 32 degrees MUSE R [place] -7 degrees MUSE T Wave [place] 13 degrees MUSE 05/26/2025 11:0 5 AM [...] change was found Reviewed by ERICH Delgado Nadiya Ramesh M.D. ECG ORDERABLES Final Resu lt MUSE NA documented in this encounter Visit Diagnoses Diagnosis Pain Chest documented in this encounter Additional Health Concerns Assessment Noted Time PHQ-9 Depression Total Score: 10 02/16/ 025 6:08 PM CDT documented as of this encounter Care Teams Flash Drier Operator Relationship Specialty Start Date End Date Elaine Russo M.D. [address] [place] [phone] PCP - General 02/02/22 Dr. Caro-Lizzie Dental Dentist 05/25/24 documented as of this encounter
--- OUTSIDE RECORDS SUMMARY | 2025-06-02 09:00 | XMS_ITS | Encounter Summary ---
Author Organization [facility] Address [address] [place] [id number] Care Team Providers Care Knee Bolter Name Role Phone Elaine Russo M.D. Primary Care Provider [phone] Reason for Referral * Outpatient (Routine) - Authorized Specialty Diagnoses / Procedures Referred By Contac t Referred To Contact Pain Medicine Mya Molina APRN, C.N.P. [address] [place] [phone] Phone: tel: fax: [facility] Referral ID Status Reason Start Date Expiration Date V isits Requested Visits Authorized [id number] Authorized 06/02/2025 12/02/2026 1 1 * Outpatient (Routine) - Authorized Specialty Diagnoses / Procedures Referred By Contac t Referred To Contact Diagnoses Trochanteric Bursitis Right Hip Pain Sacral Chronic Pain Syndrome Procedures FL Sacroiliac Joint Injection Bilateral [place] INJ SI JT W ZULEYKA W ARTHROGRPHY Mya Molina APRN, C.N.P. [address] [place] [phone] Phone: tel: fax: [facility] Referral ID Status Reason Start Date Expiration Date V isits Requested Visits Authorized [id number] Authorized 06/02/2025 09/02/2026 1 1 * Outpatient (Routine) - Authorized Specialty Diagnoses / Procedures Referred By Contac t Referred To Contact Diagnoses Trochanteric Bursitis Right Hip Pain Sacral Chronic Pain Syndrome Procedures PM Soft Tissue injection Right Mya Molina APRN, C.N.P. [address] [place] [phone] Phone: tel: fax: [facility] Referral ID Status Reason Start Date Expiration Date V isits Requested Visits Authorized [id number] Authorized 06/02/2025 09/02/2026 1 1 * Outpatient (Routine) - Authorized Specialty Diagnoses / Procedures Referred By Contac t Referred To Contact Diagnoses Chronic Pain Syndrome Mya Molina APRN, C.N.P. [address] [place] [phone] Phone: tel: fax: [address] [phone] Phone: tel: fax: Referral ID Status Reason Start Date Expiration Date Visits Requested Visits Authorized [id number] Authorized Patient Preference 06/02/2025 12/02/2026 1 1 Reason for Visit * Outpatient (Routine) - Closed Specialty Diagnoses / Procedures Referred By Contac t Referred To Contact Pain Medicine Mya Molina APRN, C.N.P. [address] [place] [phone] Phone: tel: fax: [facility] Referral ID Status Reason Start Date Expiration Date Visits Re quested Visits Authorized [id number] Closed 02/11/2025 08/13/2026 1 1 Encounter Details Date Type Department Care Team (Late st Contact Info) Description 06/02/2025 9:00 AM CDT Office Visit Division of Pain Medicine in [place], [place] [address] [place] [phone] Mya Molina, UMM, C.N.P. [address] [place] [phone] Pain Sacral (Primary Dx); Trochanteric Bursitis Right Hip; Chronic Pain Syndrome Social History Tobacco Use Types Packs/Day Years [...] things needed for daily living? Yes 05/26/2025 [facility] Utilities Answer Date Recorded In the past 12 months has th [employer] electric, gas, oil, or water company threatened to shut off services in your home? No 05/26/2025 Depression Answer Date Recor ded PHQ-9 Total Score (max 27) 10 02/16 Housing Stability Answer Date Recorded What is your living situation today? I have a [facility] place to live 05/26/2025 Education Answer Date Recorded What is the highest level of school you have completed or the highest degree you have received? Bachelor's degree (e.g., BA, AB, BS) 06/07/2019 Comments No Sex and Gender Information Value Date Recorded Sex Assigned at Female 06/15/2021 1:11 PM CDT Legal Sex Female 10:30 AM [employer]IVERSITY INTERN Gender Identity Female 09/04/2017 2:32 PM UNIVERSITY INTERN Sexual Orientation Straight 09/04/2017 2: 32 PM UNIVERSITY INTERN documented as of this encounter Progress Notes * Mya Molina, UMM, C.N.P. - 06/02/2025 9:00 AM CDT SUBJECTIVE CHIEF COMPLAINT / REASON FOR VISIT Britt Calderon presents today in follow-up of 1. Pain Sacral 2. Trochanteric Bursitis Right Hip HISTORY OF PRESENT ILLNESS Britt Calderon is a 69 y.o. female with a history of bipolar disorder, fibromyalgia, lymphedema, IBS, previously treated in the [facility] for the chief complaint of sacral pain and right lateral hip pain. Last visit took place 02/11/25. The pain is localized to the hhuhx-sypyrgw-otdr-left sacral region, right lateral hip, no leg pain and is sharp, achy in character. Associated symptoms diffuse generalized pain related to fibromyalgia. Aggravating activities include prolonged sitting, getting in and out of the car, walking, standing. She is a fall risk, so uses a cane and avoids walking long distances. Other stressors have contributed to mood disturbance, including anxiety and worsening depression. She is avoiding social situations. She sees her mental health provider at [facility] every 4-5 months for medication adjustments. She is not currently seeing a therapist. The worsening back pain is also contributing. She has tried using Ozempic, though endorses diarrhea. Injections 02/11/25 US guided right trochanteric bursa injection, 50% improvement 01/20/25 FL guided bilateral sacroiliac joint injections, 50% improvement 10/20/24 FL guided bilateral sacroiliac joint injections 02/27/24 FL guided bilateral sacroiliac joint injections 10/04/23 US guided right trochanteric bursa injection Medications Lidoderm 4% patch Tramadol No recent fevers, chills, infections or antibiotics. Prophylactic antibiotics for chronic UTI. No anticoagulation. Pain score today: 5/10. OBJECTIVE REVIEW OF SYSTEMS: Britt Calderon's history was reviewed including allergies, current medications, and problem list. PHYSICAL EXAM GENERAL: Pleasant, 69 y.o. female, in no acute distress. BMI greater than optimal. HEAD: Normocephalic and atraumatic. EYES: Pupils 3 mm. LUNGS: Unlabored respirations. SKIN: Posterior trunk absent of erythema, lesions, rashes, or infections. GAIT: Non-antalgic. Slow, intentional gait, using a cane. MUSCULOSKELETAL: Palpation about the right and left sacroiliac region exquisitely tender, with the touch me not response. Tender over the trochanteric bursa region right side. SPINE: ROM: Limited range of motion, no significant pain endorsed with movements. MANEUVERS: Previously evaluated for sacroiliac pain, with positive maneuvers, previously well documented. MENTAL: Alert, oriented, appropriate mood and affect, recent and remote memory intact. ASSESSMENT / PLAN #1 Trochanteric Bursitis Right Hip #2 Pain Sacral Britt Calderon is a 69 y.o. female with a history of mechanical back pain, sacroiliac joint dysfunction, trochanteric bursitis returns to clinic prior to repeat procedure. She endorsed 50% improvement from the last treatments, and would like to proceed with repeat sacroiliac joint injections as scheduled today, and return next week for the trochanteric bursa injection under ultrasounddue to body habitus. She has been struggling with mental health, related to her 's medical issues, his change in mood, and her own physical symptoms. I have suggested she see a therapist, and she would be open to a virtual options such as through, [employer]. MEDICAL DECISION MAKING Fluoroscopy guided bilateral sacroiliac joint injections 06/02/25. R/b/a discussed. Procedure consent discussed and signed in office. US guided right trochanteric bursa injection 06/09/25. R/b/a discussed. Procedure consent discussed and signed in office. [facility] referral placed for additional CBT support. All questions addressed. FOLLOW-UP 3 months Total time: 30 minutes PATIENT EDUCATION Ready to learn, no apparent learning barriers were identified; learning preferences included listening. Explained diagnosis and treatment plan; patient expressed understanding of the content. Sacroiliac Joint Injection Therapeutic Third and beyond Medicare Coverage Evaluation for REPEAT therapeutic SI joint injection (SIJI) This patient has been previously evaluated and found to meet the criteria for a medically necessarysacroiliac joint injection. Those criteria continue to be met as previously documented in the initial encounter. The patient's last therapeutic sacroiliac injection was on 01/20/25. The patient's pre-injection pain score was 5/10. The patient's post-injection pain score was 0/10. These results show a 100 % (minimum 50%) relief experienced from the injection in a sustainedmanner for a duration of 1 month, then 50% improvement for 2 months (minimum 3 months). Based on these outcomes, the most recent therapeutic injection demonstrated proper expected efficacy and the patient qualifies for repeat injections. documented in this encounter Plan of Treatment Upcoming Encounters Date Type Department Care Team (Latest Contact Info) Description 06/12/2025 9:00 AM CDT Office Visit Department of Family Medicine, [facility], in [address] [phone] Discharge Disposition: Home or Self Care 06/15/2025 10:50 AM CDT Appointment Department of Laboratory Medicine in [place], [place] [address] [place] [phone] Franck Lindo M.D. [address] [place] [phone] 06/16/2025 3:00 PM CDT Office Visit Division of Nephrology and Hypertension in [place], [place] [address] [place] [phone] Franck Lindo M.D. [address] [place] [phone] 06/22/2025 1:00 PM CDT Telemedicine Division of Pain Medicine in [place], [place] [address] [place] [phone] Helen Quigley, UMM, GEOLOGICAL SPECIALIST, M.S. [address] [place] [phone] 06/24/2025 1:00 PM CDT Comprehensive Visit Department of Physical Medicine and Rehabilitation in [address] [phone] Nadiya Ramesh M.D. [address] [place] [phone] Elin Aaron, OLoree [address] [place] [phone] 06/25/2025 1:15 PM CDT Clinical Communication Virtual Review in [place], [place] [address] [place] [phone] 06/28/2025 9:00 AM CDT Appointment Department of Radiology, [facility] in [place], [place] [address] [place] [phone] Miguel Yeung M.D. [address] [place] [phone] 06/28/2025 1:00 PM CDT Office Visit Department of Neurologic Surgery in [place], [place] [address] [place] [phone] Miguel Yeung M.D. [address] [place] [phone] 11/23/2025 12:50 PM CDT Appointment Department of Laboratory Medicine in [address] [phone] Nadiya Ramesh M.D. [address] [place] [phone] 11/23/2025 3:00 PM CDT Office Visit Department of Family Medicine, [facility], in [address] [phone] Elaine Russo M.D. [address] [place] [phone] Scheduled Referrals Name Type Priority Associated Diagnoses Orde r Schedule Pain Medicine office visit (clinic) Outpatient Referral Routine Expected: 09/02/2025, Expires: 09/02/2026 documented as of this encounter Visit Diagnoses Diagnosis Pain Sacral- Primary Trochanteric Bursitis Right Hip Chronic Pain Syndrome documented in this encounter Additional Health Concerns Assessment Noted Time PHQ-9 Depression Total Score: 10 025 6:08 PM CDT documented as of this encounter Care Teams Knee Bolter Relationship Specialty Start Date End Date Elaine Russo M.D. [address] [place] [phone] PCP - General 02/02/22 Dr. Degroot [facility] Dentist 05/25/24 documented as of this encounter
--- OUTSIDE RECORDS SUMMARY | 2025-06-02 09:56 | XMS_ITS | Encounter Summary ---
Author Organization [facility] Address [address] [place] [address] Care Team Providers Care Filling Station Laborer Name Role Phone Elaine Russo M.D. Primary Care Provider [phone] Reason for Referral * Outpatient (Routine) - Closed Specialty Diagnoses / Procedures Referred By Contac t Referred To Contact Diagnoses Pain Sacral Procedures FL Sacroiliac Joint Injection Bilateral MT INJ SI JT W ZULEYKA W ARTHROGRPHY Mya Molina APRN, C.N.P. [address] [place] [phone] Phone: tel: fax: [facility] Referral ID Status Reason Start Date Expiration Date Visits Re quested Visits Authorized [id number] Closed 02/11/2025 05/14/2026 1 1 Reason for Visit * Outpatient (Routine) - Closed Specialty Diagnoses / Procedures Referred By Contac t Referred To Contact Diagnoses Pain Sacral Procedures FL Sacroiliac Joint Injection Bilateral MT INJ SI JT W ZULEYKA W ARTHROGRPHY Mya Molina APRN, C.N.P. [address] [place] [phone] Phone: tel: fax: [facility] Referral ID Status Reason Start Date Expiration Date Visits Re quested Visits Authorized [id number] Closed 02/11/2025 05/14/2026 1 1 Encounter Details Date Type Department Care Team (Latest Contact Info) Description 06/02/2025 9:56 AM CDT - 06/02/2025 11:59 PM CDT Hospital Encounter Division of Pain Medicine in [place], [place] [address] [place] [address] Mya Molina, UMM, C.N.P. [address] [place] [address] Pain Sacral Discharge Disposition: Home or Self Care Social [...] things needed for daily living? Yes 05/26/2025 [facility] Utilities Answer Date Recorded In the past 12 months has th e electric, gas, oil, or water company threatened to shut off services in your home? No 05/26/2025 Depression Answer Date Recor ded PHQ-9 Total Score (max 27) 10 02/16 Housing Stability Answer Date Recorded What is your living situation today? I have a [facility] place to live 05/26/2025 Education Answer Date Recorded What is the highest level of school you have completed or the highest degree you have received? Bachelor's degree (e.g., BA, AB, BS) 06/07/2019 Comments No Sex and Gender Information Value Date Recorded Sex Assigned at Female 06/15/2021 1:11 PM CDT Legal Sex Female 10:30 AM STRATEGIC CLIENT EXECUTIVE Gender Identity Female 09/04/2017 2:32 PM STRATEGIC CLIENT EXECUTIVE Sexual Orientation Straight 09/04/2017 2: 32 PM STRATEGIC CLIENT EXECUTIVE documented as of this encounter Last Filed Vital Signs Vital Sign Reading Time Taken Comments Blood Pressure 128/61 06/02/2025 10:47 AM CDT Pulse 75 06/02/2025 10:47 AM CDT Temperature 36.5 C (97.7 F) 06/02/2025 10:06 AM CDT Respiratory Rate - - Oxygen Saturation 98% 06/02/2025 10:47 AM CDT Inhaled Oxygen Concentration - - Weight - - Height - - Body Mass Index - - documented in this encounter Medications at Time of Discharge [...] per tablet. documented as of this encounter Procedure Notes * Kang Valdovinos M.D. - 06/02/2025 11:00 AM CDTAssociated Order(s): FL Sacroiliac Joint Injection Bilateral Pre-Procedure Diagnose(s): Pain Sacral Post-Procedure Diagnose(s): Pain Sacral FL Sacroiliac Joint Injection Bilateral Performed by: Kang Valdovinos M.D. Authorized by: Mya Molina APRN, C.N.P. Care team members present 1. Tae Montanez D.O. 2. Yari Edmondson, L.P.N. PROCEDURE SUMMARY Indications: Sacroiliac Joint Pain Pre-procedural pain: 8/10 Post-procedural pain: 3/10 Site: sacral Sacral: sacroiliac joint Sacroiliac joint: bilateral Needle or RF cannula: Spinal Needle size: 22 G Needle length: 3.5 in Flow: not applicable Patient position: prone IMAGING Fluoroscopic image guidance used to localize target, identify at risk structures, and dynamically used to direct therapy to the target. Image(s) acquired and saved. INJECTED MEDICATIONS The injected medication(s) listed was divided equally between the identified injection location(s) Total volume of injectate (mL): 6 Total steroid in injectate (mg): 6 5 mL ROPivacaine (PF) 5 mg/mL (0.5 %) 6 mg betamethasone acetate & sodium phosphate 6 mg/mL 1 mL iohexoL 300 mg iodine/mL PROCEDURE DETAILS Sacroiliac joint - sacral: Using fluoroscopy, the inferior portion of the sacroiliac joint(s) was identified and marked on the skin. Using fluoroscopic guidance, a spinal needle was advanced into thejoint. Proper needle positioning was confirmed using multiple fluoroscopic views. After negative aspiration, contrast was injected, showing intraarticular spread of contrast without any evidence of intravascular uptake. A injectate was injected slowly and incrementally into the aforementioned joint(s). Following each injection, the needle was withdrawn slightly and flushed with local anesthetic as it was withdrawn from the skin. The patient tolerated the procedure well and there were no apparent complications. After appropriate observation, the patient was dismissed in good condition under their own power. Complications: no apparent complications ADDITIONAL PROCEDURE COMMENTS She tolerated the procedure very well. Both joints were periarticular today. No evidence of any complication. CONSENT Consent obtained: written (Risks, benefits and alternatives were discussed and a written Informed Consent was obtained. Please see Informed Consent form for further details.) UNIVERSAL PROTOCOL All relevant documentation and testing were reviewed and available. All required blood products, implants, devices and or special equipment were made available as applicable. Pre-procedure verification was conducted and the correct site was marked if required. A fire risk and smoke assessment were done as applicable. The procedural time-out to verify correct patient, correct side/site, and procedure was conducted prior to performing the procedure and confirmed in a procedural pause. PRE-PROCEDURE DETAILS Procedure purpose: therapeutic Appropriate hand hygiene, gown, cap, mask, protective eyewear, sterile gloves, skin preparation, sterile drape, and strict aseptic technique were utilized as applicable for the procedure: yes Site preparation: chlorhexidine SEDATION / ANESTHESIA Anesthesia method: local infiltration Local infiltrate type: lidocaine ATTESTATION STATEMENT A resident or fellow participated in the procedure, and the bilingual sales consultant was present for the entire procedure. OPERATIVE NOTE INFORMATION Specimens: 0 Drains: 0 Estimated blood loss: 0 Implants: 0 documented in this encounter Plan of Treatment Upcoming Encounters Date Type Department Care Team (Latest Contact Info) Description 06/12/2025 9:00 AM CDT Office Visit Department of Family Medicine, [facility], in [address] [phone] Discharge Disposition: Home or Self Care 06/15/2025 10:50 AM CDT Appointment Department of Laboratory Medicine in [address] [place] [address] Franck Lindo M.D. [address] [place] [phone] 06/16/2025 3:00 PM CDT Office Visit Division of Nephrology and Hypertension in [place], [place] [address] [place] [address] Franck Lindo M.D. [address] [place] [phone] 06/22/2025 1:00 PM CDT Telemedicine Division of Pain Medicine in [place], [place] [address] [place] [phone] Helen Quigley, UMM, PODIATRIC FOOT AND ANKLE SPECIALIST, M.S. [address] [place] [phone] 06/24/2025 1:00 PM CDT Comprehensive Visit Department of Physical Medicine and Rehabilitation in [address] [phone] Nadiya Ramesh M.D. [address] [phone] Elin Aaron, OLoree [address] [place] [phone] 06/25/2025 1:15 PM CDT Clinical Communication Virtual Review in [place], [place] [address] [place] [address] 06/28/2025 9:00 AM CDT Appointment Department of Radiology, [facility] in [place], [place] [address] [place] [phone] Miguel Yeung M.D. [address] [place] [phone] 06/28/2025 1:00 PM CDT Office Visit Department of Neurologic Surgery in [place], [place] [address] [place] [phone] Miguel Yeung M.D. [address] [place] [phone] 11/23/2025 12:50 PM CDT Appointment Department of Laboratory Medicine in [address] [phone] Nadiya Ramesh M.D. [address] [place] [phone] 11/23/2025 3:00 PM CDT Office Visit Department of Family Medicine, [facility], in [address] [phone] Elaine Russo M.D. [address] [place] [phone] documented as of this encounter Procedures Procedure Name Priority Date/Time Associated Diagnosis Comments FL SACROILIAC JOINT INJECTION BILATERAL RAD - Routine (most inpatients and all outpatients) 06/02/2025 10:43 AM CDT Pain Sacral documented in this encounter Results * FL SACROILIAC JOINT INJECTION BILATERAL (06/02/2025 10:43 AM CDT) Narrative Kang Valdovinos M.D. - 06/02/2025 11:00 AM CDT Kang Valdovinos M.D. 06/02/2025 10:57 AM FL Sacroiliac Joint Injection Bilateral Performed by: Kang Valdovinos M.D. Authorized by: Mya Molina APRN C.N.PChris Care team members present 1. Tae Montanez D.O. 2. Yari Edmondson L.PCandie PROCEDURE SUMMARY Indications: Sacroiliac Joint Pain Pre-procedural pain: 8/10 Post-procedural pain: 10 Site: sacral Sacral: sacroiliac joint Sacroiliac joint: bilateral Needle or RF cannula: Spinal Needle size: 22 G Needle length: 3.5 in Flow: not applicable Patient position: prone IMAGING Fluoroscopic image guidance used to localize target, identify at risk structures, and dynamically used to direct therapy to the target. Image(s) acquired and saved. INJECTED MEDICATIONS The injected medication(s) listed was divided equally between the identified injection location(s) Total volume of injectate (mL): 6 Total steroid in injectate (mg): 6 5 mL ROPivacaine (PF) 5 mg/mL (0.5 %) 6 mg betamethasone acetate & sodium phosphate 6 mg/mL 1 mL iohexoL 300 mg iodine/mL PROCEDURE DETAILS Sacroiliac joint - sacral: Using fluoroscopy, the inferior portion of the sacroiliac joint(s) was identified and marked on the skin. Using fluoroscopic guidance, a spinal needle was advanced into the joint. Proper needle positioning was confirmed using multiple fluoroscopic views. After negative aspiration, contrast was injected, showing intraarticular spread of contrast without any evidence of intravascular uptake. A injectate was injected slowly and incrementally into the aforementioned joint(s). Following each injection, the needle was withdrawn slightly and flushed with local anesthetic as it was withdrawn from the skin. The patient tolerated the procedure well and there were no apparent complications. After appropriate observation, the patient was dismissed in good condition under their own power. Complications: no apparent complications ADDITIONAL PROCEDURE COMMENTS She tolerated the procedure very well. Both joints were periarticular today. No evidence of any complication. CONSENT Consent obtained: written (Risks, benefits and alternatives were discussed and a written Informed Consent was obtained. Please see Informed Consent form for further details.) UNIVERSAL PROTOCOL All relevant documentation and testing were reviewed and available. All required blood products, implants, devices and or special equipment were made available as applicable. Pre-procedure verification was conducted and the correct site was marked if required. A fire risk and smoke assessment were done as applicable. The procedural time-out to verify correct patient, correct side/site, and procedure was conducted prior to performing the procedure and confirmed in a procedural pause. PRE-PROCEDURE DETAILS Procedure purpose: therapeutic Appropriate hand hygiene, gown, cap, mask, protective eyewear, sterile gloves, skin preparation, sterile drape, and strict aseptic technique were utilized as applicable for the procedure: yes Site preparation: chlorhexidine SEDATION / ANESTHESIA Anesthesia method: local infiltration Local infiltrate type: lidocaine ATTESTATION STATEMENT A resident or fellow participated in the procedure, and the bilingual sales consultant was present for the entire procedure. OPERATIVE NOTE INFORMATION Specimens: 0 Drains: 0 Estimated blood loss: 0 Implants: 0 Mya Molina APRN, C.N.P. IMG FLUOROSCOPY PROCEDU RES Final Result documented in this encounter Visit Diagnoses Diagnosis Pain Sacral documented in this encounter Administered Medications Inactive Administered Medications - up to 3 most recent administrations Medication Order MAR Action Action Date Dose Rate Site betamethasone acetate & sodium phosphate injection 6 mg (Celestone Soluspan) 6 mg, injection, One-Time Injection, Starting on Sat06/02/25 at 1100, For 1 doseIndications:Pain Sacral Given 06/02/2025 11:00 AM CDT 6 mg iohexoL 300 mg iodine/mL solution 1 mL (Omnipaque) 1 mL, injection, One-Time Injection, Starting on Sat06/02/25 at 1100, For 1 doseIndications:Pain Sacral Given 06/02/2025 11:00 AM CDT 1 mL ROPivacaine (PF) 5 mg/mL (0.5 %) injection 5 mL (Naropin) 5 mL, injection, One-Time Injection, Starting on Sat06/02/25 at 1100, For 1 doseIndications:Pain Sacral Given 06/02/2025 11:00 AM CDT 5 mL documented in this encounter Additional Health Concerns Assessment Noted Time PHQ-9 Depression Total Score: 10 02/16/2 025 6:08 PM CDT documented as of this encounter Care Teams Filling Station Laborer Relationship Specialty Start Date End Date Elaine Russo M.D. [address] [phone] PCP - General 02/02/22 Dr. Caro-Lizzie Dental Dentist 05/25/24 documented as of this encounter
--- OUTSIDE RECORDS SUMMARY | 2025-06-09 10:30 | XMS_ITS | Encounter Summary ---
Author Organization [facility] Address [address] [place] [address] Care Team Providers Care Commissioning Agent Name Role Phone Elaine Russo M.D. Primary Care Provider [phone] Reason for Visit * Outpatient (Routine) - Closed Specialty Diagnoses / Procedures Referred By Wojceich castaneda Referred To Contact Diagnoses Trochanteric Bursitis Right Hip Pain Hip Right Procedures PM Soft Tissue injection Right Mya Molina APRN, C.N.P. [address] [place] [phone] Phone: tel: fax: [facility] Referral ID Status Reason Start Date Expiration Date Visits Re quested Visits Authorized [id number] Closed 02/11/2025 05/14/2026 1 1 Encounter Details Date Type Department Care Team (Latest Contact Info) Description 06/09/2025 10:30 AM CDT Procedure visit Division of Pain Medicine in [place], [place] [address] [place] [phone] Manuel Walker M.D. [address] [place] [phone] Trochanteric Bursitis Right Hip; Pain Hip Right Social History Tobacco Use Types Packs/Day Years [...] things needed for daily living? Yes 05/26/2025 [facility] Utilities Answer Date Recorded In the past 12 months has [facility] electric, gas, oil, or water company threatened [...] PM CDT Legal Sex Female 10:30 AM WAITER/WAITRESS HEAD Gender Identity Female 09/04/2017 2:32 PM WAITER/WAITRESS HEAD Sexual Orientation Straight 09/04/2017 2: 32 PM WAITER/WAITRESS HEAD documented as of this encounter Procedure Notes * Manuel Walker M.D. - 06/09/2025 10:30 AM CDTAssociated Order(s): PM Soft Tissue injection Right Pre-Procedure Diagnose(s): Trochanteric Bursitis Right Hip; Pain Hip Right Post-Procedure Diagnose(s): Trochanteric Bursitis Right Hip; Pain Hip Right PM Soft Tissue injection Right Performed by: Manuel Walker M.D. Authorized by: Mya Molina APRN, C.N.P. Care team members present 1. Tae Montanez D.O. 2. Erica Dagn L.P.N. PROCEDURE SUMMARY Indications: Trochanteric bursitis Pre procedure pain score: 3/10 Post procedure pain score: 0/10 Site: Right greater trochanteric bursa Preparation: Patient was prepped and draped in usual sterile fashion Needle size: 22 G Needle length: 3.5 in IMAGING Ultrasound image guidance used to localize target, identify at risk structures, and dynamically used to direct therapy to the target. Image(s) acquired and saved. Ultrasound probe (MHz): convex low/mid-frequency Needle visualization: in-plane Needle approach: posterior to anterior INJECTED MEDICATIONS Total volume of injectate (mL): 6 Total steroid in injectate (mg): 6 2 mL BUPivacaine 0.5 % (5 mg/mL); 2 mL lidocaine 20 mg/mL 6 mg betamethasone acetate & sodium phosphate 6 mg/mL PROCEDURE DETAILS Greater trochanteric bursa description: The patient was brought to the procedure suite and placed in the appropriate position. Prior to the procedure, the appropriate trochanteric bursal region was examined to determine the optimal needle path. Thereafter, a needle was advanced into the peritrochanteric bursa and after negative aspiration, the medication was injected. Following the injection, theneedle was withdrawn. The patient tolerated the procedure well and there were no apparent complications. After an appropriate amount of observation, the patient was dismissed from the clinic in good condition under their own power. Complications: no apparent complications ADDITIONAL PROCEDURE COMMENTS Tolerated the procedure well - did require some assistance with positioning and getting on and off the table. CONSENT Consent obtained: written (Risks, benefits and [...] fellow participated in the procedure, and the benefits sales consultant was present for the entire procedure. OPERATIVE NOTE INFORMATION Specimens: 0 Drains: 0 Estimated blood loss: 0 Implants: 0 documented in this encounter Plan of Treatment Upcoming Encounters Date Type Department Care Team (Latest Contact Info) Description 06/12/2025 9:00 AM CDT Office Visit Department of Family Medicine, [facility], in [address] [phone] Discharge Disposition: Home or Self Care 06/15/2025 10:50 AM CDT Appointment Department of Laboratory Medicine in [address] [place] [phone] Franck Lindo M.D. [address] [place] [phone] 06/16/2025 3:00 PM CDT Office Visit Division of Nephrology and Hypertension in [place], [place] [address] [place] [phone] Franck Lindo M.D. [address] [place] [phone] 06/22/2025 1:00 PM CDT Telemedicine Division of Pain Medicine in [place], [place] [address] [place] [phone] Helen Quigley, UMM, SENIOR SAFETY SUPPORT MANAGER, M.S. [address] [place] [phone] 06/24/2025 1:00 PM CDT Comprehensive Visit Department of Physical Medicine and Rehabilitation in [address] [phone] Nadiya Ramesh M.D. [address] [place] [phone] Elin Aaron, OLoree [address] [place] [phone] 06/25/2025 1:15 PM CDT Clinical Communication Virtual Review in [place], [place] 200 [place] [address] 06/28/2025 9:00 AM CDT Appointment Department of Radiology, [facility] in [place], [place] [address] [place] [phone] Miguel Yeung M.D. [address] [place] [phone] 06/28/2025 1:00 PM CDT Office Visit Department of Neurologic Surgery in [place], [place] [address] [place] [phone] Miguel Yenug M.D. [address] [place] [phone] 11/23/2025 12:50 PM CDT Appointment Department of Laboratory Medicine in [address] [phone] Nadiya Ramesh M.D. [address] [place] [phone] 11/23/2025 3:00 PM CDT Office Visit Department of Family Medicine, [facility], in [address] [phone] Elaine Russo M.D. [address] [place] [phone] documented as of this encounter Procedures Procedure Name Priority Date/Time Associated Diagnosis Comments MS ARTHCS ASP/INJ MJR JT W US Routine 06/09/2025 10:30 AM CDT Trochanteric Bursitis Right Hip Pain Hip Right documented in this encounter Results * MS ARTHCS ASP/INJ MJR JT W US (06/09/2025 10:30 AM CDT) Narrative Manuel Walker M.D. - 06/09/2025 10:30 AM CDT Manuel Walker M.D. 06/09/2025 1:27 PM PM Soft Tissue injection Right Performed by: Manuel Walker M.D. Authorized by: Mya Molina APRN, C.N.P. Care team members present 1. Tae Montanez D.O. 2. Erica Dang L.P.NChris PROCEDURE SUMMARY Indications: Trochanteric bursitis Pre procedure pain score: 3/10 Post procedure pain score: 0/10 Site: Right greater trochanteric bursa Preparation: Patient was prepped and draped in usual sterile fashion Needle size: 22 G Needle length: 3.5 in IMAGING Ultrasound image guidance used to localize target, identify at risk structures, and dynamically used to direct therapy to the target. Image(s) acquired and saved. Ultrasound probe (MHz): convex low/mid-frequency Needle visualization: in-plane Needle approach: posterior to anterior INJECTED MEDICATIONS Total volume of injectate (mL): 6 Total steroid in injectate (mg): 6 2 mL BUPivacaine 0.5 % (5 mg/mL); 2 mL lidocaine 20 mg/mL 6 mg betamethasone acetate & sodium phosphate 6 mg/mL PROCEDURE DETAILS Greater trochanteric bursa description: The patient was brought to the procedure suite and placed in the appropriate position. Prior to the procedure, the appropriate trochanteric bursal region was examined to determine the optimal needle path. Thereafter, a needle was advanced into the peritrochanteric bursa and after negative aspiration, the medication was injected. Following the injection, the needle was withdrawn. The patient tolerated the procedure well and there were no apparent complications. After an appropriate amount of observation, the patient was dismissed from the clinic in good condition under their own power. Complications: no apparent complications ADDITIONAL PROCEDURE COMMENTS Tolerated the procedure well - did require some assistance with positioning and getting on and off the table. CONSENT Consent obtained: written (Risks, benefits and [...] fellow participated in the procedure, and the benefits sales consultant was present for the entire procedure. OPERATIVE NOTE INFORMATION Specimens: 0 Drains: 0 Estimated blood loss: 0 Implants: 0 us Mya Molina VOCAL MUSIC TEACHER, C.N.P. PROCEDURE/MINOR SURGICA L ORDERABLES Final Result documented in this encounter Visit Diagnoses Diagnosis Trochanteric Bursitis Right Hip Pain Hip Right documented in this encounter Administered Medications Inactive Administered Medications - up to 3 most recent administrations Medication Order MAR Action Action Date Dose Rate Site betamethasone acetate & sodium phosphate injection 6 mg (Celestone Soluspan) 6 mg, injection, One-Time Injection, Starting on Sat06/09/25 at 1030, For 1 doseIndications:Trochanteric Bursitis Right Hip,Pain Hip Right Given 06/09/2025 10:30 AM CDT 6 mg BUPivacaine 0.5 % (5 mg/mL) injection 2 mL (Marcaine) 2 mL, injection, One-Time Injection, Starting on Sat06/09/25 at 1030, For 1 doseIndications:Trochanteric Bursitis Right Hip,Pain Hip Right Given 06/09/2025 10:30 AM CDT 2 mL lidocaine 20 mg/mL injection 2 mL (Xylocaine) 2 mL, injection, One-Time Injection, Starting on Sat06/09/25 at 1030, For 1 doseIndications:Trochanteric Bursitis Right Hip,Pain Hip Right Given 06/09/2025 10:30 AM CDT 2 mL documented in this encounter Additional Health Concerns Assessment Noted Time PHQ-9 Depression Total Score: 025 6:08 PM CDT documented as of this encounter Care Teams Commissioning Agent Relationship Specialty Start Date End Date Elaine Russo M.D. [id number] [phone] PCP - General 02/02/22 Dr. Caro-Lizzie Dental Dentist 05/25/24 documented as of this encounter
[2025-06-12] VITALS (17 sets, daily range): BP systolic 135–170; BP diastolic 63–106; PULSE 59–79; RESP 16–19; TEMP 36.1–36.4; O2SAT 93–100; BMI 44.6
--- NOTE | 2025-06-12 01:16 | ED.FALL ---
HPI - Fall General Time Seen by Provider: 01:16 <Ena Stoddard MD - Last Filed: 06/12/25 03:24> Date Seen: 06/12/25 <Ena Stoddard MD - Last Filed: 06/12/25 03:24> Chief Complaint: Fall/Minor Trauma <Ena Stoddard MD - Last Filed: 06/12/25 03:24> Stated Complaint: fell 3 days ago <Ena Stoddard MD - Last Filed: 06/12/25 03:24> Time Seen by Provider: 06/12/25 01:15 <Ena Stoddard MD - Last Filed: 06/12/25 03:24> Source: patient, EMS and RN notes reviewed <Ean Stoddard MD - Last Filed: 06/12/25 03:24> Mode of arrival: EMS <Ena Stoddard MD - Last Filed: 06/12/25 03:24> Limitations: no limitations <Ena Stoddard MD - Last Filed: 06/12/25 03:24> History of Present Illness HPI Narrative: This 69-year-old female with significant underlying lymphedema is coming in with neck pain and pain in her bruised areas in her left lower leg. She was carrying something in her arms 3 days ago, tripped and fell. She is noticing some neck discomfort, no pain going into her arms. No head symptoms, did not hit her head, no headache, no loss of consciousness. She is having no back pain, no difficulty breathing, no chest pain or chest wall pain. She had no symptoms causing her to fall that were suggestive of any cardiac abnormality. She does note the bruise on the outer portion of her left leg hurts quite a bit. She has been able to walk still. She brings up that she has osteoporosis and CT imaging is what usually is recommended for her. She would like her urine checked. She has no abdominal pain. She does have chronic low back pain and sacroiliac issues. Just had injections. There is no new pain there. She states she does suffer from fibromyalgia and osteoarthritis and has a lot of generalized pain. Her neck and her left lower extremity are the areas that are of concern to her and have some increased pain after her fall. <Ena Stoddard MD - Last Filed: 06/12/25 03:24> MD complaint: fall <Ena Stoddard MD - Last Filed: 06/12/25 03:24> Related Data Home Medications: Home Medications ?Medication ?Instructions ?Recorded ?Confirmed divalproex 500 mg tablet,extended 500 mg PO BID 08/20/22 06/12/25 release 24 hr pantoprazole 40 mg tablet,delayed 40 mg PO DAILY 08/20/22 06/12/25 release pravastatin 10 mg tablet 10 mg PO QDAY 08/20/22 06/12/25 semaglutide 0.25 mg or 0.5 mg (2 1 mg subcut .weekly 08/20/22 06/12/25 mg/1.5 mL) subcutaneous pen injector (Ozempic) propranolol 60 mg capsule,24 60 mg PO BID 10/09/22 06/12/25 hr,extended release quetiapine 100 mg tablet 200 mg PO QDAY 10/09/22 06/12/25 cephalexin 250 mg capsule 250 mg PO DAILY 06/12/25 06/12/25 estradiol 0.01% (0.1 mg/gram) vaginal 06/12/25 vaginal cream latanoprost 0.005 % eye drops 1 drp ophthalmic (eye) QPM 06/12/25 06/12/25 ondansetron 4 mg disintegrating 4 mg PO Q4H PRN nausea 06/12/25 06/12/25 tablet tramadol 50 mg tablet 50 mg PO Q6H PRN pain 06/12/25 06/12/25 <Ena Stoddard MD - Last Filed: 06/12/25 03:24> Allergies/Adverse Reactions: Allergies Allergy/AdvReac Type Severity Reaction Status Date / Time oxycodone Allergy Mild itching Verified 06/12/25 00:51 prednisone Allergy Unknown hypomanic Verified 06/12/25 00:51 <Ena Stoddard MD - Last Filed: 06/12/25 03:24> Review of Systems Status of ROS: Reports: 6 or more systems reviewed and unremarkable except as noted in History and below <Ena Stoddard MD - Last Filed: 06/12/25 03:24> [facility] Medical History: Medical History Fibromyalgia ?M79.7 - Fibromyalgia (ICD-10) Osteoporosis ?M81.0 - Age-related osteoporosis without current pathological fracture (ICD-10) Vitamin B12 deficiency (05/30/09) ?E53.8 - Deficiency of other specified B group vitamins (ICD-10) Hypertension (04/08/09) ?I10 - Essential (primary) hypertension (ICD-10) Anemia (04/08/09) ?D64.9 - Anemia, unspecified (ICD-10) Osteopenia ?M85.80 - Other specified disorders of bone density and structure, unspecified site (ICD-10) Morbid obesity (06/16/10) ?E66.01 - Morbid (severe) obesity due to excess calories (ICD-10) Bipolar disorder (04/08/09) ?F31.9 - Bipolar disorder, unspecified (ICD-10) <Ena Stoddard MD - Last Filed: 06/12/25 03:24> Surgical History: Surgical History H/O gastric bypass (06/16/10) ?Z98.84 - Bariatric surgery status (ICD-10) History of repair of left rotator cuff (06/12/18) ?Z98.890 - Other specified postprocedural states (ICD-10) History of arthroscopy of left shoulder (10/14/19) ?Z98.890 - Other specified postprocedural states (ICD-10) History of bilateral knee arthroplasty ?Z96.653 - Presence of artificial knee joint, bilateral (ICD-10) History of carpal tunnel surgery of left wrist (01/14/19) ?Z98.890 - Other specified postprocedural states (ICD-10) History of intraocular lens implant ?Z96.1 - Presence of intraocular lens (ICD-10) Hx laparoscopic cholecystectomy (01/01/14) ?Z90.49 - Acquired absence of other specified parts of digestive tract (ICD-10) H/O cataract extraction ?Z98.49 - Cataract extraction status, unspecified eye (ICD-10) History of 2 sections ?Z98.891 - History of uterine scar from previous surgery (ICD-10) History of carpal tunnel surgery of right wrist (05/05/15) ?Z98.890 - Other specified postprocedural states (ICD-10) H/O abdominal hysterectomy (01/14/03) ?Z90.710 - Acquired absence of both cervix and uterus (ICD-10) 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) ?Z98.890 - Other specified postprocedural states (ICD-10) History of repair of right rotator cuff (06/21/21) ?Z98.890 - Other specified postprocedural states (ICD-10) <Ena Stoddard MD - Last Filed: 06/12/25 03:24> Social History: Social History Smoking Status: Former smoker What tobacco products do you use: cigarettes Smoking quit date/years: >15 years ago Do you use any of these nicotine containing products: None How often do you have a drink containing alcohol: monthly or less How many standard drinks containing alcohol do you have on a typical day: 1 or 2 How often do you have six or more drinks on one occasion: Never AUDIT-C Alcohol total score: 1 Non-prescribed substance use: denies use service: No <Ena Stoddard MD - Last Filed: 06/12/25 03:24> Exam Const: Vital Signs, click to edit/add: Vital Signs - 24 hr 06/12/25 00:35 06/12/25 03:07 06/12/25 04:08 Temperature 97.1 F L 97 F L Pulse Rate Pulse Rate [Right Pulse Oximeter] 78 77 69 Respiratory Rate 18 19 18 Blood Pressure Blood Pressure [Le ft Upper Arm] 170/78 H 158/106 H 158/76 H Pulse Oximetry 99 100 98 Oxygen Delivery Me thod Room Air Room Air Room Air 06/12/25 04:20 06/12/25 04:30 06/12/25 04:31 Temperature Pulse Rate 77 66 71 Pulse Rate [Right Pulse Oximeter] Respiratory Rate Blood Pressure 155/86 H Blood Pressure [Le ft Upper Arm] Pulse Oximetry 100 100 100 Oxygen Delivery Me thod 06/12/25 04:45 06/12/25 05:00 06/12/25 05:01 Temperature Pulse Rate 59 L 63 77 Pulse Rate [Right Pulse Oximeter] Respiratory Rate Blood Pressure 151/75 H Blood Pressure [Le ft Upper Arm] Pulse Oximetry 94 93 96 Oxygen Delivery Me thod 06/12/25 05:15 06/12/25 05:30 06/12/25 05:31 Temperature Pulse Rate 60 63 64 Pulse Rate [Right Pulse Oximeter] Respiratory Rate Blood Pressure 135/63 Blood Pressure [Le ft Upper Arm] Pulse Oximetry 95 94 94 Oxygen Delivery Me thod 06/12/25 05:45 06/12/25 06:00 06/12/25 06:01 Temperature Pulse Rate 65 79 71 Pulse Rate [Right Pulse Oximeter] Respiratory Rate Blood Pressure 152/89 H Blood Pressure [Le ft Upper Arm] Pulse Oximetry 95 99 100 Oxygen Delivery Me thod 06/12/25 06:02 06/12/25 09:45 Temperature 97.6 F Pulse Rate 74 Pulse Rate [Right Pulse Oximeter] 76 Respiratory Rate 16 Blood Pressure Blood Pressure [Le ft Upper Arm] 152/78 H Pulse Oximetry 100 Oxygen Delivery Me thod This 69-year-old female is alert, interactive, no apparent distress. Face atraumatic, sclera clear. Speech is normal. She has no palpable midline tenderness or paraspinous tenderness, has good range of motion of her neck. There is no neck masses. Lungs are clear, good air entry, no wheezing or crackles. CV regular rate and rhythm, no murmur. She is moving her upper extremities. Abdomen is soft, nontender, nondistended, no organomegaly. She has significant lymphedema of her lower extremities. She has a bruise on the upper outer aspect of the left lower extremity which is tender, the tenderness is localized to the bruised area. <Ena Stoddard MD - Last Filed: 06/12/25 03:24> Vital Signs, click to edit/add: Vital Signs - 24 hr 06/12/25 00:35 06/12/25 03:07 06/12/25 04:08 Temperature 97.1 F L 97 F L Pulse Rate Pulse Rate [Right Pulse Oximeter] 78 77 69 Respiratory Rate 18 19 18 Blood Pressure Blood Pressure [Le ft Upper Arm] 170/78 H 158/106 H 158/76 H Pulse Oximetry 99 100 98 Oxygen Delivery Me thod Room Air Room Air Room Air 06/12/25 04:20 06/12/25 04:30 06/12/25 04:31 Temperature Pulse Rate 77 66 71 Pulse Rate [Right Pulse Oximeter] Respiratory Rate Blood Pressure 155/86 H Blood Pressure [Le ft Upper Arm] Pulse Oximetry 100 100 100 Oxygen Delivery Me thod 06/12/25 04:45 06/12/25 05:00 06/12/25 05:01 Temperature Pulse Rate 59 L 63 77 Pulse Rate [Right Pulse Oximeter] Respiratory Rate Blood Pressure 151/75 H Blood Pressure [Le ft Upper Arm] Pulse Oximetry 94 93 96 Oxygen Delivery Me thod 06/12/25 05:15 06/12/25 05:30 06/12/25 05:31 Temperature Pulse Rate 60 63 64 Pulse Rate [Right Pulse Oximeter] Respiratory Rate Blood Pressure 135/63 Blood Pressure [Le ft Upper Arm] Pulse Oximetry 95 94 94 Oxygen Delivery Me thod 06/12/25 05:45 06/12/25 06:00 06/12/25 06:01 Temperature Pulse Rate 65 79 71 Pulse Rate [Right Pulse Oximeter] Respiratory Rate Blood Pressure 152/89 H Blood Pressure [Le ft Upper Arm] Pulse Oximetry 95 99 100 Oxygen Delivery Me thod 06/12/25 06:02 06/12/25 09:45 Temperature 97.6 F Pulse Rate 74 Pulse Rate [Right Pulse Oximeter] 76 Respiratory Rate 16 Blood Pressure Blood Pressure [Le ft Upper Arm] 152/78 H Pulse Oximetry 100 Oxygen Delivery Me thod <Ros Gómez MD - Last Filed: 06/14/25 22:43> Vital Signs, click to edit/add: Vital Signs - 24 hr 06/12/25 00:35 06/12/25 03:07 06/12/25 04:08 Temperature 97.1 F L 97 F L Pulse Rate Pulse Rate [Right Pulse Oximeter] 78 77 69 Respiratory Rate 18 19 18 Blood Pressure Blood Pressure [Le ft Upper Arm] 170/78 H 158/106 H 158/76 H Pulse Oximetry 99 100 98 Oxygen Delivery Me thod Room Air Room Air Room Air 06/12/25 04:20 06/12/25 04:30 06/12/25 04:31 Temperature Pulse Rate 77 66 71 Pulse Rate [Right Pulse Oximeter] Respiratory Rate Blood Pressure 155/86 H Blood Pressure [Le ft Upper Arm] Pulse Oximetry 100 100 100 Oxygen Delivery Me thod 06/12/25 04:45 06/12/25 05:00 06/12/25 05:01 Temperature Pulse Rate 59 L 63 77 Pulse Rate [Right Pulse Oximeter] Respiratory Rate Blood Pressure 151/75 H Blood Pressure [Le ft Upper Arm] Pulse Oximetry 94 93 96 Oxygen Delivery Me thod 06/12/25 05:15 06/12/25 05:30 06/12/25 05:31 Temperature Pulse Rate 60 63 64 Pulse Rate [Right Pulse Oximeter] Respiratory Rate Blood Pressure 135/63 Blood Pressure [Le ft Upper Arm] Pulse Oximetry 95 94 94 Oxygen Delivery Me thod 06/12/25 05:45 06/12/25 06:00 06/12/25 06:01 Temperature Pulse Rate 65 79 71 Pulse Rate [Right Pulse Oximeter] Respiratory Rate Blood Pressure 152/89 H Blood Pressure [Le ft Upper Arm] Pulse Oximetry 95 99 100 Oxygen Delivery Me thod 06/12/25 06:02 06/12/25 09:45 Temperature 97.6 F Pulse Rate 74 Pulse Rate [Right Pulse Oximeter] 76 Respiratory Rate 16 Blood Pressure Blood Pressure [Le ft Upper Arm] 152/78 H Pulse Oximetry 100 Oxygen Delivery Me thod <Reginald Ma MD - Last Filed: 06/12/25 12:37> Documenting provider has reviewed patient's vital signs: yes <Ena Stoddard MD - Last Filed: 06/12/25 03:24> Course Course ED Course: Will be obtaining cervical spine CT of her neck. She would like this and does 1 it. Have discussed also doing imaging with x-rays of her left lower leg with knee and tib-fib to exclude fracture. She really is having pain along the bruising and reviewed with her that we really do not have anything to treat that other than ice or have her take Tylenol, elevate. We can rule out underlying fracture however in she is in agreement to proceed with this imaging. She does have to urinate, does think we should potentially check urinalysis for UTI. I will certainly order a UA. I will review outside records as we have no labs from here. Just want to make sure that there is nothing else in her history that a need to be concerned about, no other labs I think we need to potentially check. Sounds as if she just simply lost her balance carrying something when she fell. <Ena Stoddard MD - Last Filed: 06/12/25 03:24> Reevaluation(s) Time of Reevaluation #1: 02:52 <Ena Stoddard MD - Last Filed: 06/12/25 03:24> Reevaluation #1: Patient went on-call light and is asking for something for pain. Will give patient Tylenol to start, see if that is adequate. Do not want to initiate any nausea or vomiting in this patient. <Ena Stoddard MD - Last Filed: 06/12/25 03:24> Reevaluation #2: Patient is ordered tramadol which she takes at home. Have ordered 50 mg. We are still awaiting a call from [facility] regarding a ED to ED transfer for this patient. In discussion with patient she appears to be too mobile in the MS collar placed. Unfortunately we do not have a [place] collar which has been suggested and therefore will use a [place] collar. I have also added additional support around the head to limit movement. After waiting extended period, [facility] e.d. unwilling to accept patient. Patient receptive to going to [facility] if necessary. <Ros Gómez MD - Last Filed: 06/14/25 22:43> Reevaluation #3: Is able to speak to Dr. Saucedo at [facility]. He is aware that we do not have a [place] J but do have a Creek collar in place which she does approve of. We may have an opportunity for MRI here with 1 of our radiology techs being crosstrained. Patient initially adamant that she would only go to [facility] but then relented and thought about [facility]. Will do our best to try to accommodate her. If that is the case patient may receive MRI at 1000 hours. This patient signed out to my colleague Dr. Ma for further disposition. <Ros Gómez MD - Last Filed: 06/14/25 22:43> Consultations Consultation #1: Have contacted the transfer center and spoke with HONORIO Bañuelos. She will be looking for the CT imaging. When she has that she will page out neuro surgery. 3:12 a.m.: Have spoken with Neurosurgery physician Dr. Martins. She has reviewed the images. She does not feel that patient's mechanism would support instability of the fracture, usually needs to be a high a speed type mechanism. She is recommending a [place] Collar and standing AP and lateral views for stability in the collar prior to discharge. Reviewed with them that we do not have [place] collar is here. She recommended ED to ED transfer. The ER there is on red light, they would need to talk to their ER provider to get acceptance. They are going to see if they can make this happen but if not, patient is likely to need to transfer to another level 1 trauma institution. She stated that the patient could follow up there outpatient with Neurosurgery within a couple weeks. This is explained to the patient. We need to find acceptance at a trauma center with a can put her in a [place] Collar and do the standing AP and lateral to ensure stability of her cervical spine prior to discharge. Otherwise, consideration for places like [facility] might even be able to do MR imaging in my prior experience. Patient states she has appointments with her neurosurgeon whom she has had gamma knife radiation with on Saturday. I reviewed with her that she cannot show up to that appointment telling a neurosurgeon that she has a C3 fracture, that really is not acceptable. <Ena Stoddard MD - Last Filed: 06/12/25 03:24> Time: 02:33 <Ena Stoddard MD - Last Filed: 06/12/25 03:24> Vital Signs Vital signs: Initial Vital Signs Temperature 97.1 F L 06/12/25 00:35 Temperature Source Temporal Artery Scan 06/12/25 00:35 Pulse Rate 78 06/12/25 00:35 Pulse Rhythm Regular 06/12/25 00:35 Respiratory Rate 18 06/12/25 00:35 Blood Pressure 170/78 H 06/12/25 00:35 Blood Pressure Mean 108 H 06/12/25 00:35 Blood Pressure Position Semi-Fowlers 06/12/25 00:35 Pulse Oximetry 99 06/12/25 00:35 Oxygen Delivery Method Room Air 06/12/25 00:35 Vital Signs Temperature 97.1 F L 06/12/25 00:35 Pulse Rate 78 06/12/25 00:35 Respiratory Rate 18 06/12/25 00:35 Blood Pressure 170/78 H 06/12/25 00:35 Pulse Oximetry 99 06/12/25 00:35 Oxygen Delivery Method Room Air 06/12/25 00:35 Temperature 97.6 F 06/12/25 09:45 Pulse Rate 76 06/12/25 09:45 Respiratory Rate 16 06/12/25 09:45 Blood Pressure 152/78 H 06/12/25 09:45 Pulse Oximetry 100 06/12/25 06:02 Oxygen Delivery Method Room Air 06/12/25 04:08 <Ena Stoddard MD - Last Filed: 06/12/25 03:24> Initial Vital Signs Temperature 97.1 F L 06/12/25 00:35 Temperature Source Temporal Artery Scan 06/12/25 00:35 Pulse Rate 78 06/12/25 00:35 Pulse Rhythm Regular 06/12/25 00:35 Respiratory Rate 18 06/12/25 00:35 Blood Pressure 170/78 H 06/12/25 00:35 Blood Pressure Mean 108 H 06/12/25 00:35 Blood Pressure Position Semi-Fowlers 06/12/25 00:35 Pulse Oximetry 99 06/12/25 00:35 Oxygen Delivery Method Room Air 06/12/25 00:35 Vital Signs Temperature 97.1 F L 06/12/25 00:35 Pulse Rate 78 06/12/25 00:35 Respiratory Rate 18 06/12/25 00:35 Blood Pressure 170/78 H 06/12/25 00:35 Pulse Oximetry 99 06/12/25 00:35 Oxygen Delivery Method Room Air 06/12/25 00:35 Temperature 97.6 F 06/12/25 09:45 Pulse Rate 76 06/12/25 09:45 Respiratory Rate 16 06/12/25 09:45 Blood Pressure 152/78 H 06/12/25 09:45 Pulse Oximetry 100 06/12/25 06:02 Oxygen Delivery Method Room Air 06/12/25 04:08 <Ros Gómez MD - Last Filed: 06/14/25 22:43> Initial Vital Signs Temperature 97.1 F L 06/12/25 00:35 Temperature Source Temporal Artery Scan 06/12/25 00:35 Pulse Rate 78 06/12/25 00:35 Pulse Rhythm Regular 06/12/25 00:35 Respiratory Rate 18 06/12/25 00:35 Blood Pressure 170/78 H 06/12/25 00:35 Blood Pressure Mean 108 H 06/12/25 00:35 Blood Pressure Position Semi-Fowlers 06/12/25 00:35 Pulse Oximetry 99 06/12/25 00:35 Oxygen Delivery Method Room Air 06/12/25 00:35 Vital Signs Temperature 97.1 F L 06/12/25 00:35 Pulse Rate 78 06/12/25 00:35 Respiratory Rate 18 06/12/25 00:35 Blood Pressure 170/78 H 06/12/25 00:35 Pulse Oximetry 99 06/12/25 00:35 Oxygen Delivery Method Room Air 06/12/25 00:35 Temperature 97.6 F 06/12/25 09:45 Pulse Rate 76 06/12/25 09:45 Respiratory Rate 16 06/12/25 09:45 Blood Pressure 152/78 H 06/12/25 09:45 Pulse Oximetry 100 06/12/25 06:02 Oxygen Delivery Method Room Air 06/12/25 04:08 <Reginald Ma MD - Last Filed: 06/12/25 12:37> Medications Administered Medications: Discontinued Medications Generic Name Dose Route Start Last Admin Trade Name Freq PRN Reason Stop Dose Admin Acetaminophen 1,000 mg 06/12/25 02:54 06/12/25 02:58 Acetaminophen 500 Mg Tablet PO 06/12/25 02:55 1,000 mg ONCE ONE Administration Tramadol HCl 50 mg 06/12/25 03:51 06/12/25 04:02 Tramadol Hcl 50 Mg Tablet PO 06/12/25 03:52 50 mg ONCE ONE Administration <Ena Stoddard MD - Last Filed: 06/12/25 03:24> Discontinued Medications Generic Name Dose Route Start Last Admin Trade Name Freq PRN Reason Stop Dose Admin Acetaminophen 1,000 mg 06/12/25 02:54 06/12/25 02:58 Acetaminophen 500 Mg Tablet PO 06/12/25 02:55 1,000 mg ONCE ONE Administration Tramadol HCl 50 mg 06/12/25 03:51 06/12/25 04:02 Tramadol Hcl 50 Mg Tablet PO 06/12/25 03:52 50 mg ONCE ONE Administration <Ros Gómez MD - Last Filed: 06/14/25 22:43> Discontinued Medications Generic Name Dose Route Start Last Admin Trade Name Jacki PRN Reason Stop Dose Admin Acetaminophen 1,000 mg 06/12/25 02:54 06/12/25 02:58 Acetaminophen 500 Mg Tablet PO 06/12/25 02:55 1,000 mg ONCE ONE Administration Tramadol HCl 50 mg 06/12/25 03:51 06/12/25 04:02 Tramadol Hcl 50 Mg Tablet PO 06/12/25 03:52 50 mg ONCE ONE Administration <Reginald Ma MD - Last Filed: 06/12/25 12:37> MDM - Fall MDM Narrative Medical decision making narrative: 1. C3 fracture-MRI pending 2. Disposition-pending <Ros Gómez MD - Last Filed: 06/14/25 22:43> 1. C3 fracture-MRI pending 2. Disposition-pending Addendum: 8:14 a.m.: Patient has a anterior C3 fracture that has some mild displacement. At this point she is willing to go to a trauma center would accept her. [facility] Dr. Temi shrestha has accepted her. Transfer sheets completed to go by ground [facility]. She does have an IV in place and will oximetry. Show keeper Michelle collar in place. She certainly could have done her MRI here in that would been fine, unfortunately do not have [place] J Collar then she might need this. This may be simple 5 for follow-up as well. She can also see neurosurgery today. <Reginald Ma MD - Last Filed: 06/12/25 12:37> Medical Records Attestation: I reviewed the patient's medical records. <Ros Gómez MD - Last Filed: 06/14/25 22:43> Lab Data Attestation: I reviewed the patient's lab results. <Ena Stoddard MD - Last Filed: 06/12/25 03:24> Labs: Lab Results 06/12/25 Range/Units 01:30 Urine Color Yellow (Yellow) Urine Appearance Cloudy A (Clear) Urine pH 5.5 (5.0-8.5) Ur Specific [place] <= 1.005 (1.000-1.030) Urine Protein Negative (Negative) Urine Glucose (UA) Negative (Negative) Urine Ketones 1+ A (Negative) Urine Blood Trace-intact A (Negative) Urine Nitrite Negative (Negative) Urine Bilirubin Negative (Negative) Urine Urobilinogen 0.2 (0.2-1.0) Ur Leukocyte Esterase 1+ A (Negative) Urine RBC 0-2 (0-2) Urine WBC 0-2 (0-5) Ur Squamous Epith Cells Few (None-Few) Urine Bacteria Few A (None) <Ena Stoddard MD - Last Filed: 06/12/25 03:24> Lab Results 06/12/25 Range/Units 01:30 Urine Color Yellow (Yellow) Urine Appearance Cloudy A (Clear) Urine pH 5.5 (5.0-8.5) Ur Specific [place] <= 1.005 (1.000-1.030) Urine Protein Negative (Negative) Urine Glucose (UA) Negative (Negative) Urine Ketones 1+ A (Negative) Urine Blood Trace-intact A (Negative) Urine Nitrite Negative (Negative) Urine Bilirubin Negative (Negative) Urine Urobilinogen 0.2 (0.2-1.0) Ur Leukocyte Esterase 1+ A (Negative) Urine RBC 0-2 (0-2) Urine WBC 0-2 (0-5) Ur Squamous Epith Cells Few (None-Few) Urine Bacteria Few A (None) <Ros Gómez MD - Last Filed: 06/14/25 22:43> Lab Results 06/12/25 Range/Units 01:30 Urine Color Yellow (Yellow) Urine Appearance Cloudy A (Clear) Urine pH 5.5 (5.0-8.5) Ur Specific [place] <= 1.005 (1.000-1.030) Urine Protein Negative (Negative) Urine Glucose (UA) Negative (Negative) Urine Ketones 1+ A (Negative) Urine Blood Trace-intact A (Negative) Urine Nitrite Negative (Negative) Urine Bilirubin Negative (Negative) Urine Urobilinogen 0.2 (0.2-1.0) Ur Leukocyte Esterase 1+ A (Negative) Urine RBC 0-2 (0-2) Urine WBC 0-2 (0-5) Ur Squamous Epith Cells Few (None-Few) Urine Bacteria Few A (None) <Reginald Ma MD - Last Filed: 06/12/25 12:37> Imaging Data XR left knee: Attestation: I have reviewed the pertinent imaging results. <Ena Stoddard MD - Last Filed: 06/12/25 03:24> Radiologist's impression: Patient: MACIE GOODWIN Facility:?[facility] Patient ID:?[id number] Site Patient ID:?[id number]. Site :?[id number] Study:?XRay-Knee Left 3V-06/12/2025 2:04:08 AM Ordering Physician:Devan Sutherland Final Report: Indication: Fall, pain Technique: Three views of the left knee Comparison: Knee radiographs performed 05/06/2020 Findings/Impression: Status post knee arthroplasty. Diffuse soft tissue edema. No acute radiographic abnormality appreciated. Dictated by Iglesia Salgado MD @ 06/12/2025 2:25:32 AM (Electronic Signature) <Ena Stoddard MD - Last Filed: 06/12/25 03:24> XR left tib fib: Attestation: I have reviewed the pertinent imaging results. <Ena Stoddard MD - Last Filed: 06/12/25 03:24> Radiologist's impression: Patient: MACIE GOODWIN Facility:?[facility] Patient ID:?[id number] Site Patient ID:?[id number]. Site :?[id number] Study:?XRay-Extremity Left TIB FIB 2V-06/12/2025 2:04:35 AM Ordering Physician:Devan Sutherland Final Report: Indication: Fall, pain Technique: Two views of the left tibia and fibula Comparison: None Findings/Impression: Partially visualized knee arthroplasty hardware. Diffuse soft tissue edema. No acute fracture or malalignment is appreciated. Dictated by Iglesia Salgado MD @ 06/12/2025 2:26:15 AM (Electronic Signature) <Ena Stoddard MD - Last Filed: 06/12/25 03:24> CT- Other: Attestation: I have reviewed the pertinent imaging results. <Ena Stoddard MD - Last Filed: 06/12/25 03:24> Radiologist's impression: Patient: MACIE GOODWIN Facility:[facility] Patient ID:?[id number] Site Patient ID:?[id number]. Site :?[id number] Study:?CT-Spine Cervical WITHOUT-06/12/2025 2:03:51 AM Ordering Physician:Devan Sutherland Final Report: Indication: Fall, pain Technique: Noncontrast CT through the cervical spine with multiplanar reformats Comparison: None Findings: Alignment: Mild C3-4 anterolisthesis. Bones: There is an acute teardrop fracture along the inferior anterior C3 endplate which is offset by 4 millimeters anteriorly. Cervical levels: Widening of the C3-4 disc space. Mjlu-fq-vkksvlgf spondylosis. Soft tissues: Mild soft tissue edema. Impression: There is an acute teardrop fracture along the inferior anterior C3 endplate with 4 millimeters of fracture fragment offset along with widening of the C3-4 disc space and mild C3-4 anterolisthesis. Stability of this fracture pattern is questionable and further evaluation with MRI and spine surgical consultation is recommended. Findings were communicated by telephone to Dr. Ena Stoddard at 0230 on 06/12/2025. Please note that all CT scans at this facility use dose modulation, iterative reconstruction, and/or weight-based dosing when appropriate to reduce radiation dose to as low as reasonably achievable. Dictated by Iglesia Salgado MD @ 06/12/2025 2:33:18 AM (Electronic Signature) <Ena Stoddard MD - Last Filed: 06/12/25 03:24> Discharge Plan Discharge Clinical Impression: Fall Qualifiers: Encounter type: initial encounter Qualified Code(s): W19.XXXA - Unspecified fall, initial encounter C3 cervical fracture Qualifiers: Encounter type: initial encounter Fracture type: closed Fracture morphology: unspecified fracture morphology Fracture alignment: displaced Qualified Code(s): S12.200A - Unspecified displaced fracture of third cervical vertebra, initial encounter for closed fracture Traumatic hematoma of left lower leg Qualifiers: Encounter type: initial encounter Qualified Code(s): S80.12XA - Contusion of left lower leg, initial encounter <Ena Stoddard MD - Last Filed: 06/12/25 03:24> Patient Disposition: Xfer Other <Ena Stoddard MD - Last Filed: 06/12/25 03:24> Condition: Stable <Ena Stoddard MD - Last Filed: 06/12/25 03:24> Prescriptions: No Action pravastatin 10 mg tablet 10 mg PO QDAY pantoprazole 40 mg tablet,delayed release (DR/EC) 40 mg PO DAILY Patient Comments: TAKE ONE TABLET BY MOUTH EVERY MORNING BEFORE BREAKFAST Ozempic 0.25 mg or 0.5 mg(2 mg/1.5 mL) pen injector 1 mg subcut .weekly divalproex 500 mg tablet extended release 24 hr 500 mg PO BID quetiapine 100 mg tablet 200 mg PO QDAY propranolol 60 mg capsule,extended release 24 hr 60 mg PO BID Patient Comments: TAKE ONE CAPSULE BY MOUTH TWICE A DAY cephalexin 250 mg capsule 250 mg PO DAILY latanoprost 0.005 % drops 1 drp ophthalmic (eye) QPM tramadol 50 mg tablet 50 mg PO Q6H PRN (Reason: pain) estradiol 0.01 % (0.1 mg/gram) cream vaginal ondansetron 4 mg tablet,disintegrating 4 mg PO Q4H PRN (Reason: nausea) <Ena Stoddard MD - Last Filed: 06/12/25 03:24> Stand Alone Forms: MyHealth Info Instructions <Ena Stoddard MD - Last Filed: 06/12/25 03:24>
--- NOTE | 2025-06-12 01:24 | CRLHL7_ITS ---
For Patients: As a result of the Century Cures Act, medical imaging exams and procedure reports are released immediately into your electronic medical record. You may view this report before your referring provider. If you have questions, please contact your health care provider. Indication: Fall, pain Technique: Three views of the left knee Comparison: Knee radiographs performed 05/06/2020 Findings/Impression: Status post knee arthroplasty. Diffuse soft tissue edema. No acute radiographic abnormality appreciated. Dictated by Iglesia Salgado MD @ 06/12/2025 2:25:32 AM (Electronically Signed)
--- NOTE | 2025-06-12 01:24 | CRLHL7_ITS ---
For Patients: As a result of the Century Cures Act, medical imaging exams and procedure reports are released immediately into your electronic medical record. You may view this report before your referring provider. If you have questions, please contact your health care provider. Indication: Fall, pain Technique: Noncontrast CT through the cervical spine with multiplanar reformats Comparison: None Findings: Alignment: Mild C3-4 anterolisthesis. Bones: There is an acute teardrop fracture along the inferior anterior C3 endplate which is offset by 4 millimeters anteriorly. Cervical levels: Widening of the C3-4 disc space. Eyuw-kw-aldrndsa spondylosis. Soft tissues: Mild soft tissue edema. Impression: There is an acute teardrop fracture along the inferior anterior C3 endplate with 4 millimeters of fracture fragment offset along with widening of the C3-4 disc space and mild C3-4 anterolisthesis. Stability of this fracture pattern is questionable and further evaluation with MRI and spine surgical consultation is recommended. Findings were communicated by telephone to Dr. Ena Stoddard at 0230 on 06/12/2025. Please note that all CT scans at this facility use dose modulation, iterative reconstruction, and/or weight-based dosing when appropriate to reduce radiation dose to as low as reasonably achievable. Dictated by Iglesia Salgado MD @ 06/12/2025 2:33:18 AM (Electronically Signed)
--- NOTE | 2025-06-12 01:24 | CRLHL7_ITS ---
For Patients: As a result of the Cures Act, medical imaging exams and procedure reports are released immediately into your electronic medical record. You may view this report before your referring provider. If you have questions, please contact your health care provider. Indication: Fall, pain Technique: Two views of the left tibia and fibula Comparison: None Findings/Impression: Partially visualized knee arthroplasty hardware. Diffuse soft tissue edema. No acute fracture or malalignment is appreciated. Dictated by Iglesia Salgado MD @ 06/12/2025 2:26:15 AM (Electronically Signed)
[2025-06-12 01:58] LABS: Appearance Urine Cloudy (Clear)
--- OUTSIDE RECORDS SUMMARY | 2025-06-12 02:15 | XMS_ITS | Encounter Summary ---
Author Organization [facility] Address [address] [place] [address] Care Team Providers Care Jewelry Maker Name Role Phone Elaine Russo M.D. Primary Care Provider [phone] Encounter Details Date Type Department Care Team (Late st Contact Info) Description 06/18/2017 Historical Ophthalmology RST OPH Sheron Boykin M.D. 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 - 06/18/2017 12:16 PM CDT Eye General CHIEF COMPLAINT recheck flashes, left eye HISTORY OF PRESENT ILLNESS Patient here for recheck flashes in left eye, probably a little decreased since last visit. Cloudy vision; left eye; x 3 days; constantly; symptoms are moderate; replaced the flashes of light. Patient denies ocular pain or floaters. Patient A1c 6.6 on 04/09/2017. SCX: patient reported a filmy vision that is intermittent in the left eye and she notices it duringblinking. The filmy is throughout the entire vision. IMPRESSION / REPORT / PLAN #1 Posterior vitreous detachment, left eye - First symptomatic 4 weeks ago. No vitreous hemorrhage or posterior pigmented cells noted. No retinal tear or detachment. - Reviewed signs/symptoms of retinal tear/detachment (new shower of floaters/increase in flashing lights/dark curtain in the vision). Instructed patient to seek immediate medical attention should they occur. Patient expressed an understanding and agreement with plan. - RTC annually for dilated exam (via office visit or diabetic photo screening). Patient will call for appointment. #2 DM with minimal to no retinopathy #3 Dry eye syndrome, bilateral #4 Meibomian gland dysfunction, bilateral - Warm compresses BID to TID - PF artificial tears Q1hr PRN -Humidifier use in the home setting DIAGNOSIS #1 Posterior vitreous detachment, left eye #2 DM with minimal to no retinopathy #3 Dry eye syndrome, bilateral #4 Meibomian gland dysfunction, bilateral CDM Reports - EYEGEN Id: [id number] Status: Fnl documented in this encounter Plan of Treatment Upcoming Encounters Date Type Department Care Team (Latest Contact Info) Description 06/12/2025 9:00 AM CDT Office Visit Department of Family Medicine, [facility], in [address] [phone] Discharge Disposition: Home or Self Care 06/15/2025 10:50 AM CDT Appointment Department of Laboratory Medicine in [address] [place] [address] Franck Lindo M.D. [address] [place] [phone] 06/16/2025 3:00 PM CDT Office Visit Division of Nephrology and Hypertension in [place], [place] [address] [place] [phone] Franck Lindo M.D. [address] [place] [phone] 06/22/2025 1:00 PM CDT Telemedicine Division of Pain Medicine in [place], [place] [address] [place] [address] Helen Quigley APRN, INSURANCE ACCOUNT EXECUTIVE, M.S. [address] [place] [phone] 06/24/2025 1:00 PM CDT Comprehensive Visit Department of Physical Medicine and Rehabilitation in [address] [phone] Nadiya Ramesh M.D. [address] [place] [phone] Elin Aaron O.T. [address] [place] [phone] 06/25/2025 1:15 PM CDT Clinical Communication Virtual Review in [place], [place] 200 [place] [phone] 06/28/2025 9:00 AM CDT Appointment Department of Radiology, [facility] in [place], [place] [address] [place] [phone] Miguel Yenug M.D. [address] [place] [phone] 06/28/2025 1:00 PM CDT Office Visit Department of Neurologic Surgery in [place], [place] [address] [place] [phone] Miguel Yeung M.D. [address] [place] [phone] 11/23/2025 12:50 PM CDT Appointment Department of Laboratory Medicine in [address] [phone] Nadiya Ramesh M.D. [address] [place] [phone] 11/23/2025 3:00 PM CDT Office Visit Department of Family Medicine, [facility], in [address] [phone] Elaine Russo M.D. [address] [place] [phone] documented as of this encounter Visit Diagnoses Not on filedocumented in this encounter Additional Health Concerns Infection Onset Date Last Indicated Resolved Time COVID19 Pending 02/20/2020 02/20/2020 02/21/2020 3 :30 AM CDT COVID19 Pending 04/25/2020 04/25/2020 04/26/2020 9:01 AM CDT COVID19 Pending 05/17/2020 05/17/2020 05/18/2020 1 1:17 AM CDT COVID19 Pending 06/16/2020 06/16/2020 06/17/2020 6 :02 PM CDT COVID19 Pending 11/24/2020 11/24/2020 11/24/2020 1 :50 PM CDT COVID19 Pending 04/17/2021 04/17/2021 04/18/2021 1 2:18 PM CDT COVID19 Pending 06/17/2021 06/18/2021 06/19/2021 1 2:54 PM CDT COVID19 Pending 09/05/2021 09/05/2021 09/06/2021 2 :53 AM FISHING BOAT CAPTAIN COVID19 Pending 08/06/2022 08/06/2022 08/06/2022 1 1:54 PM FISHING BOAT CAPTAIN COVID19 Pending 12/24/2023 12/24/2023 12/24/2023 5 :16 PM CDT Assessment Noted Time PHQ-9 Depression Total Score: 2 10/24/19 17 5:15 PM FISHING BOAT CAPTAIN documented as of this encounter Care Teams Jewelry Maker Relationship Specialty Start Date End Date Elaine Russo M.D. [address] [place] [phone] PCP - General 02/02/22 Dr. Degroot Dental Dentist 05/25/24 documented as of this encounter
--- OUTSIDE RECORDS SUMMARY | 2025-06-12 02:15 | XMS_ITS | Encounter Summary ---
Author Organization [facility] Address [address] [place] [address] Care Team Providers Care Filament Tester Name Role Phone Elaine Russo M.D. Primary Care Provider [phone] Reason for Visit * Reason Comments Appt Request June 2025 Encounter Details Date Type Department Care Team (Latest Contact Info) Description 04/19/2025 Clinical Communication Division of Nephrology and Hypertension in [place], [place] [address] [place] [address] Franck Lindo M.D. [address] [place] [phone] Appt Request (June 2025) Social History Tobacco Use Types Packs/Day Years Used Date Smoking Tobacco: Former Cigarettes 0 10/31/1981 - 03/05/1986 Passive Smoke Exposure: Never Smokeless Tobacco: Never Comments:Smoked less than 1 pack/ per day, no use since 1983 Alcohol Use Standard Drinks/Week Comments Yes 2 (1 standard drink = 0.6 oz pur e alcohol) Usage of wine or beer rare. [facility] Utilities Answer Date Recorded In the past 12 months has e electric, gas, oil, or water company threatened to shut off services in your home? No 11/19/2024 Humiliation, Afraid, Rape, and Kick questionnair e Answer Date Recorded Within the last year, have y ou been afraid of your partner or ex-partner? No 04/16/2023 Within the last year, have y ou been humiliated or emotionally abused in other ways by your partner or ex-partner? Yes Within the last year, have y ou been kicked, hit, slapped, or otherwise physically hurt by your partner or ex-partner? No 04/16/2023 Within the last year, have y ou been raped or forced to have any kind of sexual activity by your partner or ex-partner? No 04/16/2023 Hunger Vital Sign Answer Date Recorded Within the past 12 months, y ou worried that your food would run out before you got the money to buy more. Never true 11/20/19 25 Within the past 12 months, t he food you bought just didn't last and you didn't have money to get more. Never true 11/19/2024 PRAPARE - Transportation Answer Date Re corded In the past 12 months, has l ack of transportation kept you from medical appointments or from getting medications? No 11/01 In the past 12 months, has l ack of transportation kept you from meetings, work, or from getting things needed for daily living? No 11/19/2024 Depression Answer Date Recor ded PHQ-9 Total Score (max 27) 10 02/16 Housing Stability Answer Date Recorded What is your living situation today? I have a [employer] place to live 11/19/2024 Education Answer Date Recorded What is the highest level of school you have completed or the highest degree you have received? Bachelor's degree (e.g., BA, AB, BS) 06/07/2019 Comments No Sex and Gender Information Value Date Recorded Sex Assigned at Female 06/15/2021 1:11 PM CDT Legal Sex Female 10:30 AM HIGH SCHOOL COMBINATION TEACHER Gender Identity Female 09/04/2017 2:32 PM HIGH SCHOOL COMBINATION TEACHER Sexual Orientation Straight 09/04/2017 2: 32 PM HIGH SCHOOL COMBINATION TEACHER documented as of this encounter Plan of Treatment Upcoming Encounters Date Type Department Care Team (Latest Contact Info) Description 06/12/2025 9:00 AM CDT Office Visit Department of Family Medicine, [facility], in [address] [phone] Discharge Disposition: Home or Self Care 06/15/2025 10:50 AM CDT Appointment Department of Laboratory Medicine in [place], [place] [address] [place] [address] Franck Lindo M.D. [address] [place] [phone] 06/16/2025 3:00 PM CDT Office Visit Division of Nephrology and Hypertension in [place], [place] [address] [place] [phone] Franck Lindo M.D. [address] [place] [phone] 06/22/2025 1:00 PM CDT Telemedicine Division of Pain Medicine in [place], [place] [address] [place] [phone] Helen Quigley, UMM, SWING TENDER, M.S. [address] [place] [phone] 06/24/2025 1:00 PM CDT Comprehensive Visit Department of Physical Medicine and Rehabilitation in [address] [phone] Nadiya Ramesh M.D. [address] [place] [phone] Elin Aaron, OChrisTChris [address] [place] [phone] 06/25/2025 1:15 PM CDT Clinical Communication Virtual Review in [place], [place] 200 [place] [phone] 06/28/2025 9:00 AM CDT Appointment Department of Radiology, [facility] in [place], [place] [address] [place] [phone] Miguel Yeung M.D. [address] [place] [phone] 06/28/2025 1:00 PM CDT Office Visit Department of Neurologic Surgery in [place], [place] [address] [place] [phone] Miugel Yeung M.D. [address] [place] [phone] 11/23/2025 12:50 PM CDT Appointment Department of Laboratory Medicine in [address] [phone] Nadiya Ramesh M.D. [address] [place] [phone] 11/23/2025 3:00 PM CDT Office Visit Department of Family Medicine, [facility], in [address] [phone] Elaine Russo M.D. [address] [place] [phone] documented as of this encounter Visit Diagnoses Not on filedocumented in this encounter Additional Health Concerns Assessment Noted Time PHQ-9 Depression Total Score: 10 02/16/ 025 6:08 PM CDT documented as of this encounter Care Teams Filament Tester Relationship Specialty Start Date End Date Elaine Russo M.D. [address] [place] [phone] PCP - General 02/02/22 Dr. Caro-Lizzie Dental Dentist 05/25/24 documented as of this encounter
--- OUTSIDE RECORDS SUMMARY | 2025-06-12 02:15 | XMS_ITS | Encounter Summary ---
Author Organization [facility] Address [address] [place] [address] Care Team Providers Care Financial Cost Analyst Name Role Phone Elaine Russo M.D. Primary Care Provider [phone] Encounter Details Date Type Department Care Team (Late st Contact Info) Description 05/24/[address] [place] [phone] Bharathi Rain M.D. [address] [place] [address] [place] [phone] Bipolar I Disorder (HCC) (Primary Dx); Anxiety Generalized Disorder; Other Halfway Current Drug Therapy Social History Tobacco Use [...] things needed for daily living? Yes 05/26/2025 [facility] Utilities Answer Date Recorded In the past 12 months has e [employer], gas, oil, or water company threatened to shut off services in your home? No 05/26/2025 Depression Answer Date Recor ded PHQ-9 Total Score (max 27) 10 02/16 Housing Stability Answer Date Recorded What is your living situation today? I have a [facility] place to live 05/26/2025 Education Answer Date Recorded What is the highest level of school you have completed or the highest degree you have received? Bachelor's degree (e.g., BA, AB, BS) 06/07/2019 Comments No Sex and Gender Information Value Date Recorded Sex Assigned at Female 06/15/2021 1:11 PM CDT Legal Sex Female 10:30 AM ENROLLMENT CLERK Gender Identity Female 09/04/2017 2:32 PM ENROLLMENT CLERK Sexual Orientation Straight 09/04/2017 2: 32 PM ENROLLMENT CLERK documented as of this encounter Plan of Treatment Upcoming Encounters Date Type Department Care Team (Latest Contact Info) Description 06/12/2025 9:00 AM CDT Office Visit Department of Family Medicine, [facility], in [address] [phone] Discharge Disposition: Home or Self Care 06/15/2025 10:50 AM CDT Appointment Department of Laboratory Medicine in [place], [place] [address] [place] [address] Franck Lindo M.D. [address] [place] [phone] 06/16/2025 3:00 PM CDT Office Visit Division of Nephrology and Hypertension in [place], [place] [address] [place] [phone] Franck Lindo M.D. [address] [place] [phone] 06/22/2025 1:00 PM CDT Telemedicine Division of Pain Medicine in [address] [phone] Helen Quigley, UMM, CYTOGENETICIST, M.S. [address] [place] [phone] 06/24/2025 1:00 PM CDT Comprehensive Visit Department of Physical Medicine and Rehabilitation in [address] [phone] Nadiya Ramesh M.D. [address] [place] [phone] Elin Aaron, OLoree [address] [place] [phone] 06/25/2025 1:15 PM CDT Clinical Communication Virtual Review in [place], [place] 200 [place] [phone] 06/28/2025 9:00 AM CDT Appointment Department of Radiology, [facility] in [place], [place] [address] [place] [phone] Miguel Yeung M.D. [address] [place] [phone] 06/28/2025 1:00 PM CDT Office Visit Department of Neurologic Surgery in [place], [place] [address] [place] [phone] Miguel Yeung M.D. [address] [place] [address] 11/23/2025 12:50 PM CDT Appointment Department of Laboratory Medicine in [address] [phone] Nadiya Ramesh M.D. [address] [place] [phone] 11/23/2025 3:00 PM CDT Office Visit Department of Family Medicine, [facility], in [address] [phone] Elaine Russo M.D. [address] [place] [phone] Scheduled Orders Name Type Priority Associated Diagnoses Orde r Schedule Hemoglobin A1c Lab Routine Bipolar I Disorder (HCC) Anxiety Generalized Disorder Other Halfway Current Drug Therapy Expected: 05/24/2025 (Approximate), Expires: 08/23/2026 CBC with Differential, Blood Lab Routine Bipolar I Disorder (HCC) Anxiety Generalized Disorder Other Leather Sorter Current Drug Therapy Expected: 05/24/2025 (Approximate), Expires: 08/23/2026 Comprehensive Metabolic Panel Lab Routine Anxiety Generalized Disorder Bipolar I Disorder (HCC) Other Halfway Current Drug Therapy Expected: 05/24/2025 (Approximate), Expires: 08/23/2026 Lipid Panel Lab Routine Bipolar I Disorder (HCC) Anxiety Generalized Disorder Other Halfway Current Drug Therapy Expected: 05/24/2025 (Approximate), Expires: 08/23/2026 documented as of this encounter Results * Valproic Acid, Total (05/26/2025 11:18 AM CDT) Valproic Acid, Tot, S 70 50 - 125 mcg/mL 05/26/2025 1:46 PM CDT [facility] Blood (Blood, Venous) 05/26/2025 11:18 AM CDT 05/26/2025 1:14 PM CDT Bharathi Rain M.D. LAB BLOOD ADD-ON Final Result [facility] [address] [place] [address], [facility] in [place] [address] [place] [phone] documented in this encounter Visit Diagnoses Diagnosis Bipolar I Disorder (HCC)- Primary Anxiety Generalized Disorder Other Leather Sorter Current Drug Therapy documented in this encounter Additional Health Concerns Assessment Noted Time PHQ-9 Depression Total Score: 10 02/16/ 025 6:08 PM CDT documented as of this encounter Care Teams Financial Cost Analyst Relationship Specialty Start Date End Date Elaine Russo M.D. [address] [place] [phone] PCP - General 02/02/22 Dr. Caro-Lizzie Dental Dentist 05/25/24 documented as of this encounter
--- OUTSIDE RECORDS SUMMARY | 2025-06-12 02:15 | XMS_ITS | Encounter Summary ---
Author Organization [facility] Address [address] [place] [address] Care Team Providers Care Machinist Tool And Die Name Role Phone Elaine Russo M.D. Primary Care Provider [phone] Encounter Details Date Type Department Care Team (Late st Contact Info) Description 05/21/2017 Historical Ophthalmology RST OPH Sheron Boykin M.D. Social History Tobacco Use Types Packs/Day Years Used Date Smoking Tobacco: Never Comments Unknown Sex and Gender Information Value Date Recorded Sex Assigned at Female 06/15/2021 1:11 PM CDT Legal Sex Female 10:30 AM CHEMISTS Gender Identity Female 09/04/2017 2:32 PM CHEMISTS Sexual Orientation Straight 09/04/2017 2: 32 PM CHEMISTS documented as of this encounter Progress Notes * Sheron Boykin M.D. - 05/21/2017 1:03 PM CDT Eye General CHIEF COMPLAINT I fell HISTORY OF PRESENT ILLNESS Patient notes she is here after falling on the concrete Saturday and hitting the side of her face. She notes flashes of colored lights which began Saturday; intermittent but improving. Notes vision is blurry in the left eye; also explains that it could be from her eyeglasses as she has struggled withthe Rx. Patient notes left eye feels tired. Notes symptoms are improving. Denies pain. SCX: Patient has been having flashes in the left eye, since Saturday. However, she fell and landed onher right cheek, right hand and knee. No blunt trauma to the left eye. No fracture, has skin abrasion. She is high myopia (-5.5 and -4.5, per patient). No floaters. No history of retinal detachment. Ocular surgery: none. No black curtain in vision. No history of retinal detachment. Has history of di abetes: last A1C of 6.6 in April 2017. IMPRESSION / REPORT / PLAN #1 Posterior vitreous detachment, left eye - First symptomatic 2 day ago. No vitreous hemorrhage or posterior pigmented cells noted. No retinal tear or detachment. - Reviewed signs/symptoms of retinal tear/detachment (new shower of floaters/increase in flashing lights/dark curtain in the vision). Instructed patient to seek immediate medical attention should they occur. Patient expressed an understanding and agreement with plan. - RTC in 4-6 weeks DIAGNOSIS #1 Posterior vitreous detachment, left eye CDM Reports - EYEGEN Id: [id number] Status: Fnl documented in this encounter Plan of Treatment Upcoming Encounters Date Type Department Care Team (Latest Contact Info) Description 06/12/2025 9:00 AM CDT Office Visit Department of Family Medicine, [facility], in [address] [phone] Discharge Disposition: Home or Self Care 06/15/2025 10:50 AM CDT Appointment Department of Laboratory Medicine in [address] [place] [phone] Franck Lindo M.D. [address] [place] [phone] 06/16/2025 3:00 PM CDT Office Visit Division of Nephrology and Hypertension in [place], [place] [address] [place] [phone] Franck Lindo M.D. [address] [place] [phone] 06/22/2025 1:00 PM CDT Telemedicine Division of Pain Medicine in [place], [place] [address] [place] [phone] Helen Quigley APRN, PLUCK SEPARATOR, M.S. [address] [place] [phone] 06/24/2025 1:00 PM CDT Comprehensive Visit Department of Physical Medicine and Rehabilitation in [place], [place] [address] [place] [phone] Nadiya Ramesh M.D. [address] [place] [phone] Elin Aaron O.T. [address] [place] [phone] 06/25/2025 1:15 PM CDT Clinical Communication Virtual Review in [place], [place] 200 [place] [phone] 06/28/2025 9:00 AM CDT Appointment Department of Radiology, [facility] in [place], [place] [address] [place] [phone] Miguel Yeung M.D. [address] [place] [phone] 06/28/2025 1:00 PM CDT Office Visit Department of Neurologic Surgery in [place], [place] [address] [place] [phone] Miguel Yeung M.D. [address] [place] [phone] 11/23/2025 12:50 PM CDT Appointment Department of Laboratory Medicine in [address] [phone] Nadiya Ramesh M.D. [address] [place] [phone] 11/23/2025 3:00 PM CDT Office Visit Department of Family Medicine, [facility], in [address] [phone] Elaine Russo M.D. [address] [place] [phone] documented as of this encounter Visit Diagnoses Not on filedocumented in this encounter Additional Health Concerns Infection Onset Date Last Indicated Resolved Time COVID19 Pending 02/20/2020 02/20/2020 02/21/2020 3 :30 AM CDT COVID19 Pending 04/25/2020 04/25/2020 04/26/2020 9 :01 AM CDT COVID19 Pending 05/17/2020 05/17/2020 05/18/2020 1 1:17 AM CDT COVID19 Pending 06/16/2020 06/16/2020 06/17/2020 6 :02 PM CDT COVID19 Pending 11/24/2020 11/24/2020 11/24/2020 1 :50 PM CDT COVID19 Pending 04/17/2021 04/17/2021 04/18/2021 1 2:18 PM CDT COVID19 Pending 06/17/2021 06/18/2021 06/19/2021 1 2:54 PM CDT COVID19 Pending 09/05/2021 09/05/2021 09/06/2021 2 :53 AM CHEMISTS COVID19 Pending 08/06/2022 08/06/2022 08/06/2022 1 1:54 PM CHEMISTS COVID19 Pending 12/24/2023 12/24/2023 12/24/2023 5 :16 PM CDT Assessment Noted Time PHQ-9 Depression Total Score: 2 10/24/19 17 5:15 PM CHEMISTS documented as of this encounter Care Teams Machinist Tool [employer] Relationship Specialty Start Date End Date Elaine Russo M.D. [address] [place] [phone] PCP - General 02/02/22 Dr. Degroot Dental Dentist 05/25/24 documented as of this encounter
--- OUTSIDE RECORDS SUMMARY | 2025-06-12 02:16 | XMS_ITS | Encounter Summary ---
Author Organization [facility] Address [address] [place] [address] Care Team Providers Care Resource Center Teacher Name Role Phone Elaine Russo M.D. Primary Care Provider [phone] Encounter Details Date Type Department Care Team (Late st Contact Info) Description 05/25/2025 Results Follow-Up Department of Family Medicine, [facility], in [address] [phone] Aurora Mcpherson M.D. [address] [place] [phone] [place] Thyroid Social History Tobacco Use Types Packs/Day Years [...] things needed for daily living? Yes 05/26/2025 [facility] Utilities Answer Date Recorded In the past 12 months has th e electric, gas, oil, or water company threatened to shut off services in your home? No 05/26/2025 Depression Answer Date Recor ded PHQ-9 Total Score (max 27) 10 02/16 Housing Stability Answer Date Recorded What is your living situation today? I have a [facility] place to live 05/26/2025 Education Answer Date Recorded What is the highest level of school you have completed or the highest degree you have received? Bachelor's degree (e.g., BA, AB, BS) 06/07/2019 Comments No Sex and Gender Information Value Date Recorded Sex Assigned at Female 06/15/2021 1:11 PM CDT Legal Sex Female 10:30 AM LEAD ELECTRICIAN Gender Identity Female 09/04/2017 2:32 PM LEAD ELECTRICIAN Sexual Orientation Straight 09/04/2017 2: 32 PM LEAD ELECTRICIAN documented as of this encounter Plan of Treatment Upcoming Encounters Date Type Department Care Team (Latest Contact Info) Description 06/12/2025 9:00 AM CDT Office Visit Department of Family Medicine, [facility], in [address] [phone] Discharge Disposition: Home or Self Care 06/15/2025 10:50 AM CDT Appointment Department of Laboratory Medicine in [place], [place] [address] [place] [phone] Franck Lindo M.D. [address] [place] [phone] 06/16/2025 3:00 PM CDT Office Visit Division of Nephrology and Hypertension in [place], [place] [address] [place] [phone] Franck Lindo M.D. [address] [place] [phone] 06/22/2025 1:00 PM CDT Telemedicine Division of Pain Medicine in [place], [place] [address] [place] [phone] Helen Quigley, UMM, SAUSAGE STRINGER, M.S. [address] [place] [phone] 06/24/2025 1:00 PM CDT Comprehensive Visit Department of Physical Medicine and Rehabilitation in [address] [phone] Nadiya Ramesh M.D. [address] [place] [phone] Elin Aaron, OLoree [address] [place] [phone] 06/25/2025 1:15 PM CDT Clinical Communication Virtual Review in [place], [place] 200 [place] [phone] 06/28/2025 9:00 AM CDT Appointment Department of Radiology, [facility] in [place], [place] [address] [place] [phone] Miguel Yeung M.D. [address] [place] [phone] 06/28/2025 1:00 PM CDT Office Visit Department of Neurologic Surgery in [place], [place] [address] [place] [phone] Miguel Yeung M.D. [address] [place] [phone] 11/23/2025 12:50 PM CDT Appointment Department of Laboratory Medicine in [address] [phone] Nadiya Ramesh M.D. [address] [place] [phone] 11/23/2025 3:00 PM CDT Office Visit Department of Family Medicine, [facility], in [address] [phone] Elaine Russo M.D. [address] [place] [phone] documented as of this encounter Visit Diagnoses Diagnosis Nodule Thyroid- Primary documented in this encounter Additional Health Concerns Assessment Noted Time PHQ-9 Depression Total Score: 10 02/16/ 025 6:08 PM CDT documented as of this encounter Care Teams Resource Center Teacher Relationship Specialty Start Date End Date Elaine Russo M.D. [address] [place] [phone] PCP - General 02/02/22 Dr. Caro-Lizzie Dental Dentist 05/25/24 documented as of this encounter
--- OUTSIDE RECORDS SUMMARY | 2025-06-12 02:16 | XMS_ITS | Encounter Summary ---
Author Organization [facility] Address [address] [place] [address] Care Team Providers Care High School Tutor Name Role Phone Elaine Russo M.D. Primary Care Provider [phone]- [phone] Reason for Visit * Reason Onset Date Comments Bone density 05/26/2025 Encounter Details Date Type Department Care Team (Late st Contact Info) Description 05/26/2025 Clinical Communication Department of Family Medicine, [facility], in [address] [phone] Elaine Russo M.D. [address] [place] [phone] Bone density Social History Tobacco Use Types Packs/Day Years [...] Recorded In the past 12 months has [facility] [employer], gas, oil, or water [employer] threatened to shut off services in your home? No 05/26/2025 Depression Answer Date Recor ded PHQ-9 Total Score (max 27) 10 02/16 Housing Stability Answer Date Recorded What is your living situation today? I have a [facility] place to live 05/26/2025 Education Answer Date Recorded What is the highest level of school you have completed or the highest degree you have received? Bachelor's degree (e.g., BA, AB, BS) 06/07/2019 Comments No Sex and Gender Information Value Date Recorded Sex Assigned at Female 06/15/2021 1:11 PM CDT Legal Sex Female 10:30 AM BLOCKER METAL BASE Gender Identity Female 09/04/2017 2:32 PM BLOCKER METAL BASE Sexual Orientation Straight 09/04/2017 2: 32 PM BLOCKER METAL BASE documented as of this encounter Miscellaneous Notes * Telephone Encounter - Salome Tejada L.P.N. - 06/01/2025 3:50 PM CDT Patient notified. documented in this encounter Plan of Treatment Upcoming Encounters Date Type Department Care Team (Latest Contact Info) Description 06/12/2025 9:00 AM CDT Office Visit Department of Family Medicine, [facility], in [address] [phone] Discharge Disposition: Home or Self Care 06/15/2025 10:50 AM CDT Appointment Department of Laboratory Medicine in [address] [place] [phone] Franck Lindo M.D. [address] [place] [phone] 06/16/2025 3:00 PM CDT Office Visit Division of Nephrology and Hypertension in [place], [place] [address] [place] [phone] Franck Lindo M.D. [address] [place] [phone] 06/22/2025 1:00 PM CDT Telemedicine Division of Pain Medicine in [place], [place] [address] [place] [phone] Helen Quigley, UMM, MANAGER MECHANICAL MAINTENANCE, M.S. [address] [place] [phone] 06/24/2025 1:00 PM CDT Comprehensive Visit Department of Physical Medicine and Rehabilitation in [address] [phone] Nadiya Ramesh M.D. [address] [place] [phone] Elin Aaron, OLoree [address] [place] [phone] 06/25/2025 1:15 PM CDT Clinical Communication Virtual Review in [place], [place] [address] [place] [phone] 06/28/2025 9:00 AM CDT Appointment Department of Radiology, [facility], in [place], [place] [address] [place] [phone] Miguel Yeung M.D. [address] [place] [phone] 06/28/2025 1:00 PM CDT Office Visit Department of Neurologic Surgery in [place], [place] [address] [place] [phone] Miguel Yeung M.D. [address] [place] [phone] 11/23/2025 12:50 PM CDT Appointment Department of Laboratory Medicine in [address] [phone] Nadiya Ramesh M.D. [address] [place] [phone] 11/23/2025 3:00 PM CDT Office Visit Department of Family Medicine, [facility], in [address] [phone] Elaine Russo M.D. [address] [place] [phone] documented as of this encounter Visit Diagnoses Not on filedocumented in this encounter Additional Health Concerns Assessment Noted Time PHQ-9 Depression Total Score: 10 02/16/2 025 6:08 PM CDT documented as of this encounter Care Teams High School Tutor Relationship Specialty Start Date End Date Elaine Russo M.D. [address] [place] [phone] PCP - General 02/02/22 Dr. Degroot Dental Dentist 05/25/24 documented as of this encounter
--- OUTSIDE RECORDS SUMMARY | 2025-06-12 02:17 | XMS_ITS | Clinical Summary ---
Author Organization [facility] Address [address] [place] [id number] Care Team Providers Care Dry Cleaner Helper Name Role Phone Elaine Russo MD Primary Care Provider [phone] Allergies Active Allergy Reactions Criticality Noted Date Comments Cortisone Behavioral Disturbances 01/09/2018 Other reaction(s): Other (see comments) Oxycodone-Acetaminoph en Hives 10/05/2015 Oxycodone Itching,Hives,Rash Low 10/12/2014 Prednisone Other - Describe In Comment Field 04/15/2018 Medications CYANOCOBALAMIN 1,[address] 1,000 mcg under the tongue once weekly. Take 3 tablets once a week. 0 Active lisinopril (PRINIVIL; ZESTRIL) 5 mg tablet Take 1 tablet by mouth once daily. 0 3 Active cholecalciferol (VITAMIN D-3) 2,000 unit capsule Take 1 capsule by mouth once daily. 0 6 Active iron-vitamin C (VITRON C) 65 mg iron- 125 mg Delayed-Release tablet Take 1 Tab by mouth once daily. Take at bedtime 0 6 Active pantoprazole (PROTONIX) 40 mg delayed-release tablet Take 1 tablet by mouth once daily before a meal. 0 8 Active melatonin 5 mg capsule Take 1 capsule by mouth. 0 9 Active traMADol (ULTRAM) 50 mg tablet Take 1 tablet by mouth every 6 hours if needed for Pain. 0 0 Active clonazePAM (KLONOPIN) 1 mg tabletIndicatio ns:Bipolar I disorder (HC) Take 1/2 to 1 tab by mouth at HS prn sleep 10 tablet 4 0 Active denosumab (PROLIA) 60 mg/mL injection Inject 60 mg subcutaneous EVERY 6 MONTHS. 2 Active dorzolamide-delmis oloL (COSOPT) 2-0.5 % ophthalmic solution Place 1 Drop into both eyes two times daily. Active latanoprost (XALATAN) 0.005 % ophthalmic solution Place 1 Drop into both eyes at bedtime. Active pravastatin (PRAVACHOL) 10 mg tablet Take 10 mg by mouth once daily. 3 Active Ozempic 0.25 mg or 0.5 mg (2 mg/3 mL) pen Inject 0.25 mg subcutaneous once weekly. Active divalproex (DEPAKOTE ER) 500 mg Extended-Releas e tabletIndicatio ns:Bipolar I disorder (HC) Take 2 Tablets (1,000 mg) by mouth at bedtime. Take 250mg for total of 1250mg. 4 Active divalproex (Depakote ER) 250 mg Extended-Releas e tabletIndicatio ns:Bipolar I disorder (HC) Take 1 Tablet (250 mg) by mouth at bedtime. Take 1000mg for total of 1250mg. 4 Active QUEtiapine (SEROQUEL) 100 mg tabletIndicatio ns:Bipolar I disorder (HC) Take 2 tablets by mouth daily. 4 Active Active Problems Problem Noted Date Diagnosed Date Controlled substance agreement signed 09/24/2017 Overview (09/24/2017): Signed: Leora Escobedo, LABORATORY TECHNOLOGY TEACHER, BC, ATOMIC PROCESS ENGINEER -09/12/17 / Controlled substance agreement signed 04/16/2017 Overview (04/16/2017): 02/03/[address] Galo Macias psychiatry/ HTN (hypertension) 05/20/2010 Unspecified intestinal malabsorption 09/30/2009 Bipolar I disorder, most rec ent episode (or current) unspecified 01/15/2007 Overview (06/23/2014): Past psych meds: Prozac Wellbutrin Abilify 15mg--restless [place]--thyroid abnormalities, 07/2011--tried again and pt reported tremor and facial tingling (appeared to help mood, no tremor on exam but switched to VPA as pt would not take Li moth exterminator--could reconsider in future if needed) VPA ER 1000mg Lamictal: manic episodes on this med Ativan Tegretol--dizziness, SHORE, will not take again HOSPITALIZED with nettie 06/2011 at [place]: Tends to be every Fall since 2007. -Tapered off Lamictal -Started Tegretol 200mg 2 tabs BID -Seroquel 400mg QHS -Seroquel 50mg PRN daily -Klonopin 0.5mg BID -Tx HTN (see scanned record) --Pt reported s/e from Tegretol and did not wish to continue-->Li, pt reported s/e as above and would not continue, switched to Depakote 07/2011 MELISSA 07/2011 for Fco Edema 11/20/2001 OBESITY - NOS 04/17/2001 Resolved Problems Problem Noted Date Diagnosed Date Resolved Date Encounter for long-term (cur rent) use of other medications 08/12/2012 09/03/2023 Overview (08/12/2012): MH cont sub agreement 08/13 Encounter for long-term (cur rent) use of other medications 07/18/2011 03/30/2013 Overview (07/18/2011): On benzodiazepine. No contract. No evidence of misuse. Can fill monthly unless there is evidence otherwise. Immunizations Immunization Administration Dates Next Due AMB Influenza, IIV3 (Age >=3 years)(Flu Clinic Only) 07/21/2008 Hepatitis B (Adult) 03/20/2016,10/05/2015,2014 Influenza Virus, Unspecified 06/22/2019, 09/05/2018,07/02/2017,2015,06/23/2014,06/12/2011,06/04/2011,0 05/31/2009,07/21/2008,07/17/2001 Influenza, High-dose Inactivated 07/02/2016 Influenza, High-dose Quadriv alent Inactivated 07/02/2023,07/03/2022 Influenza, IIV3 (Age 6-35 mos) 06/12/2011 Influenza, IIV3 (Age >=3 years) 06/12/2011,07/21,07/17/2001 Influenza, IIV4 06/29/2015,06/23/2014,04/29/2013 Pneumococcal Poly,23-Valent (Pneumovax) 06/23/2014 TD, UNSPECIFIED 01/24/2004 Td (Age >=7 Years) 02/13/2016(Deferred: Patient Refused),01/24/2004 Td, Preservative Free (age > = 7 Years) 01/24/2004 Tdap 12/04/2012,06/23/2007 Zoster (Shingrix-RZV, recombinant) 09/21/2019, Zoster (Zostavax-ZVL, live) 02/13/2016(D eferred: Patient Refused),02/13/2016 Family History Medical History Relation Name Comments Heart Disease Father Alcohol/Drug Maternal Grandfather alcohol Alcohol/Drug Mother alcohol Cancer Mother Lung cancer Heart Disease Mother Other Mother of lung CA Psychiatric illness Mother depressi on Genetic Other cancer-mother~t hyroid-father~cataract-m other/cancer-mother~thyroid-father~diaz ract-mother~CAD- father, mother~COPD- mother/cancer-mother~thyroid-father~cat aract-mother~CAD- father, mother~COPD- mother~Non known family history of anesthetic problems. Psychiatric illness Sister 1 depressi on Psychiatric illness Sister 2 depressi on Alcohol/Drug Son 1 drug use Alcohol/Drug Son 2 drug use Psychiatric illness Son 2 bipolar symptoms Relation Name Status Comments Father Alive Maternal Aunt Maternal Grandfather Maternal Grandmother Maternal Uncle Mother Other Paternal Aunt Paternal Grandfather Paternal Grandmother Paternal Uncle Sister 1 Alive Sister 2 Alive Son 1 Alive Son 2 Alive Social History Tobacco Use Types Packs/Day Years Used Date Smoking Tobacco: Former Cigarettes 0 09/02/1973 - 09/02/1992 Smokeless Tobacco: Never Tobacco Cessation:Counseling Given: Yes Alcohol Use Standard Drinks/Week Comments Not Currently 0 (1 standard drink = 0.6 oz pur e alcohol) rare PHQ-2 Answer Date Recorded PHQ-2 TOTAL SCORE 1 09/03/2023 Comments No Sex and Gender Information Value Date Recorded Sex Assigned at Not on file Legal Sex Female 6:14 AM PROJECT ACCOUNTANT Gender Identity Not on file Sexual Orientation Not on file Occupation Industry Job Start Date Job End Date Not on file Not on file Not on file Not on file Obstetrics History Para Term AB IAB SAB Ectopic Multiple Livin g Live Births 3 2 2 0 1 0 1 0 0 2 Date Outcome GA Total Labor Labor/2nd/3rd Weight Sex Type Anes PTL Rufina A1 A5 Name Clin SAB Term Term Last Filed Vital Signs Vital Sign Reading Time Taken Comments Blood Pressure 116/78 09/03/2023 11:00 AM PROJECT ACCOUNTANT Pulse 68 09/03/2023 11:00 AM PROJECT ACCOUNTANT Temperature 36.8 C (98.3 F) 03/25/2013 6:49 PM CDT Respiratory Rate 16 04/21/2020 2:00 PM CDT Oxygen Saturation 100% 09/03/2023 11: 00 AM PROJECT ACCOUNTANT Inhaled Oxygen Concentration - - Weight 111.7 kg (246 lb 3.2 oz) 024 11:00 AM PROJECT ACCOUNTANT Height 160 cm (5' 3) 04/21/2020 2:00 PM CDT Body Mass Index 43.61 04/21/2020 2:00 PM CDT Plan of Treatment Health Maintenance Due Date Last Done Comments Hepatitis C screening for ag e 18-79 11/09/1973 Mammogram for age 45-75 06/18/2012 06/18/20 11, 07/21/2008, 07/03/2007, Additional history exists Pneumococcal series for age 50+ (2 of 2 - PCV) 06/23/2015 06/23/2014 RSV vaccine for adults or (1 - Risk 60-74 years 1-dose series) 2015 Colonoscopy through age 75 08/01/2017 08/01/2007 Lipids for age 45-75 09/22/2018 09/22/2013, 01/22/2012, 06/23/2007, Additional history exists DEXA/DXA scan for age 65+ 11/09/2020 07/03/2007 Medicare Wellness for age 65+ 11/09/2020 BMI (ht and wt on same day) for age 18+ 04/21/2021 04/21/2020, 03/03/2020, 08/20/2019, Additional history exists Tetanus booster 12/04/2022 12/04/2012, 06/03, 01/24/2004, Additional history exists Depression screening for age 12+ 09/03/2024 09/03/2023, 03/03/2020, 10/12/2019, Additional history exists COVID-19 vaccine series ( season) 2025 07/02/2023, 04/26/2023, 08/21/2022, Additional history exists Influenza Vaccine (#1) 2025 9, 09/05/2018, 07/02/2017, Additional history exists Hepatitis B series for 19+ Completed 03/20, 10/05/2015, 08/23/2015 Zoster (shingles) series for age 50+ Completed 09/21/2019, 07/17/2019, 02/13/2016 Procedures Procedure Name Priority Date/Time Associated Diagnosis Comments LIPID PANEL W REFLEX MEASURED LDL Routine 09/22/2013 9:41 AM PROJECT ACCOUNTANT Bipolar I disorder, most recent episode (or current) unspecified XR MAMMO BILAT SCREEN FFDM (IA) Routine 07/21/2008 4:17 PM PROJECT ACCOUNTANT Other Screening Mammogram XR DXA BONE DENSITY 2 SITES AXIAL Routine 07/03/2007 4:06 PM CDT Screening Osteoporosis from Last 3 Months or Most Recently Relevant to Health Maintenance Results * (ABNORMAL) LIPID PANEL W REFLEX MEASURED LDL (09/22/2013 9:41 AM PROJECT ACCOUNTANT) CHOLESTEROL,TOTAL 232(H) 100 - 199 mg/dL 09/22/2013 10:22 AM [facility] TRIGLYCERIDES 181(H) <150 mg/dL 09/22/2013 10:22 AM [facility] HDL CHOLESTEROL 60 >40 mg/dL 4 10:22 AM [facility] NON-HDL CHOLESTEROL 172(H) <145 mg/dl 09/22/2013 10:22 AM [facility] CHOL/HDL RATIO 3.87 <4.50 09/22/2013 10:22 AM [facility] LDL CHOLESTEROL 136(H) <=130 mg/dL 09/22/2013 10:22 AM [facility] PATIENT STATUS FASTING 09/22/2013 10:22 AM [facility] Blood specimen (specimen) BLOOD SPECIMEN / Unknown Venipuncture / Unknown 09/22/2013 9:41 AM PROJECT ACCOUNTANT 09/22/2013 9:41 AM PROJECT ACCOUNTANT Galo Macias MD CHEMISTRY Final Res ult [facility] [address] [id number] * XR MAMMO BILAT SCREEN FFDM (07/21/2008 4:17 PM PROJECT ACCOUNTANT) MAMMOGRAM ACR 2 Benign Finding Anatomical Region Laterality Modality BREASTS, Breast Left, Breast Right Bilateral Mammography 07/21/2008 4:17 PM PROJECT ACCOUNTANT Narrative 07/23/2008 8:15 AM PROJECT ACCOUNTANT Benign findings noted on mammogram. For complete description of the mammographic examination, please reference scanned document within [facility]. We are mailing a results letter to the patient. ACR 2 Benign Finding Procedure Note Ralph Rosenberg DO - 07/23/2008 Benign findings noted on mammogram. For complete description of themammographic examination, please reference scanned document within[facility]. We are mailing a results letter to the patient. ACR 2 Benign Finding us Mercedes Pennington DO MAMMO Final Resu lt * XR DEXA BONE DENSITY 2 SITES (07/03/2007 4:06 PM CDT) Anatomical Region Laterality Modality Spine, HIPS, HIPL, HIPR Other 07/03/2007 4:06 PM CDT Narrative 07/11/2007 2:13 PM PROJECT ACCOUNTANT Please see scanned document for results of this study. Procedure Note Aixa Sigala - 07/11/2007 Please see scanned document for results of this study. Mercedes HUDSONA Final Resu lt from Last 3 Months or Most Recently Relevant to Health Maintenance Insurance [employer] MEDICARE ADVANTAGE MR [facility] * Guarantor: [facility] Account Type Relation to Patient Date of Phone Billing Address Contract 2006 [address] [place] [id number] Advance Directives * Full Code (Latest Code Status on File) Date Activated Date Inactivated Comments 05/19/2010 6:54 PM 05/24/2010 8:28 PM * Full Code Date Activated Date Inactivated Comments 01/14/2007 12:45 PM 01/15/2007 7:20 PM * Full Code Date Activated Date Inactivated Comments 04/11/2005 3:51 AM 04/13/2005 4:55 PM Care Teams Dry Cleaner Helper Relationship Specialty [place] [address] [phone] PCP - General Family Practice 09/03/23
--- OUTSIDE RECORDS SUMMARY | 2025-06-12 02:17 | XMS_ITS | Encounter Summary ---
Author Organization [facility] Address [address] [place] [address] Care Team Providers Care Chiropractor Sole Practitioner Name Role Phone Elaine Russo M.D. Primary Care Provider [phone] Encounter Details Date Type Department Care Team (Late st Contact Info) Description 06/01/2025 Clinical Communication Department of Family Medicine, [facility], in [address] [phone] Elaine Russo M.D. [address] [place] [phone] Social History Tobacco Use Types Packs/Day Years [...] things needed for daily living? Yes 05/26/2025 [facility] Utilities Answer Date Recorded In the past 12 months has th e electric, gas, oil, or water company threatened to shut off services in your home? No 05/26/2025 Depression Answer Date Recor ded PHQ-9 Total Score (max 27) 10 02/16 Housing Stability Answer Date Recorded What is your living situation today? I have a [facility] place to live 05/26/2025 Education Answer Date Recorded What is the highest level of school you have completed or the highest degree you have received? Bachelor's degree (e.g., BA, AB, BS) 06/07/2019 Comments No Sex and Gender Information Value Date Recorded Sex Assigned at Female 06/15/2021 1:11 PM CDT Legal Sex Female 10:30 AM IT SECURITY SPECIALIST Gender Identity Female 09/04/2017 2:32 PM IT SECURITY SPECIALIST Sexual Orientation Straight 09/04/2017 2: 32 PM IT SECURITY SPECIALIST documented as of this encounter Plan of Treatment Upcoming Encounters Date Type Department Care Team (Latest Contact Info) Description 06/12/2025 9:00 AM CDT Office Visit Department of Family Medicine, [facility] [place], in [place], [place] [address] [place] [phone] Discharge Disposition: Home or Self Care 06/15/2025 10:50 AM CDT Appointment Department of Laboratory Medicine in [address] [place] [phone] Franck Lindo M.D. [address] [place] [phone] 06/16/2025 3:00 PM CDT Office Visit Division of Nephrology and Hypertension in [place], [place] [address] [place] [phone] Franck Lindo M.D. [address] [place] [phone] 06/22/2025 1:00 PM CDT Telemedicine Division of Pain Medicine in [place], [place] [address] [place] [phone] Helen Quigley, UMM, BUTTON BRADDER, M.S. [address] [place] [phone] 06/24/2025 1:00 PM CDT Comprehensive Visit Department of Physical Medicine and Rehabilitation in [address] [phone] Nadiya Ramesh M.D. [address] [place] [phone] Elin Aaron, O.TChris [address] [place] [phone] 06/25/2025 1:15 PM CDT Clinical Communication Virtual Review in [place], [place] [address] [place] [phone] 06/28/2025 9:00 AM CDT Appointment Department of Radiology, [facility] in [place], [place] [address] [place] [phone] Miguel Yeung M.D. [address] [place] [phone] 06/28/2025 1:00 PM CDT Office Visit Department of Neurologic Surgery in [place], [place] [address] [place] [phone] Miguel Yeung M.D. [address] [place] [address] 11/23/2025 12:50 PM CDT Appointment Department of Laboratory Medicine in [address] [phone] Nadiya Ramesh M.D. [address] [place] [phone] 11/23/2025 3:00 PM CDT Office Visit Department of Family Medicine, [facility], in [address] [phone] Elaine Russo M.D. [address] [place] [phone] documented as of this encounter Visit Diagnoses Not on filedocumented in this encounter Additional Health Concerns Assessment Noted Time PHQ-9 Depression Total Score: 10 02/16/ 025 6:08 PM CDT documented as of this encounter Care Teams Chiropractor Sole Practitioner Relationship Specialty Start Date End Date Elaine Russo M.D. [address] [place] [phone] PCP - General 02/02/22 Dr. Caro-Lizzie Dental Dentist 05/25/24 documented as of this encounter
--- OUTSIDE RECORDS SUMMARY | 2025-06-12 02:17 | XMS_ITS | Encounter Summary ---
Author Organization [facility] Address [address] [place] [address] Care Team Providers Care Buckle Frame Shaper Name Role Phone Elanie Russo M.D. Primary Care Provider [phone] Encounter Details Date Type Department Care Team (Late st Contact Info) Description 05/31/2025 Results Follow-Up Department of Family Medicine, [facility], in [address] [phone] Nadiya Ramesh M.D. [address] [place] [phone] ECG 12 Lead Social History Tobacco Use Types Packs/Day Years [...] for daily living? Yes 05/26/2025 [facility] Utilities Answer Date Recorded In the past 12 months has th e electric, gas, oil, or water company threatened to shut off services in your home? No 05/26/2025 Depression Answer Date Recor ded PHQ-9 Total Score (max 27) 10 02/16 Housing Stability Answer Date Recorded What is your living situation today? I have a [facility] place to live 05/26/2025 Education Answer Date Recorded What is the highest level of school you have completed or the highest degree you have received? Bachelor's degree (e.g., BA, AB, BS) 06/07/2019 Comments No Sex and Gender Information Value Date Recorded Sex Assigned at Female 06/15/2021 1:11 PM CDT Legal Sex Female 10:30 AM SOLDER SPRAYER Gender Identity Female 09/04/2017 2:32 PM SOLDER SPRAYER Sexual Orientation Straight 09/04/2017 2: 32 PM SOLDER SPRAYER documented as of this encounter Plan of Treatment Upcoming Encounters Date Type Department Care Team (Latest Contact Info) Description 06/12/2025 9:00 AM CDT Office Visit Department of Family Medicine, [facility], in [address] [phone] Discharge Disposition: Home or Self Care 06/15/2025 10:50 AM CDT Appointment Department of Laboratory Medicine in [place], [place] [address] [place] [phone] Franck Lindo M.D. [address] [place] [phone] 06/16/2025 3:00 PM CDT Office Visit Division of Nephrology and Hypertension in [place], [place] [address] [place] [phone] Franck Lindo M.D. [address] [place] [phone] 06/22/2025 1:00 PM CDT Telemedicine Division of Pain Medicine in [place], [place] [address] [place] [phone] Helen Quigley, UMM, TOPOLOGY TEACHER, M.S. [address] [place] [phone] 06/24/2025 1:00 PM CDT Comprehensive Visit Department of Physical Medicine and Rehabilitation in [address] [phone] Nadiya Ramesh M.D. [address] [place] [phone] Elin Aaron, OChrisTChris [address] [place] [phone] 06/25/2025 1:15 PM CDT Clinical Communication Virtual Review in [place], [place] 200 [place] [phone] 06/28/2025 9:00 AM CDT Appointment Department of Radiology, [facility] in [place], [place] [address] [place] [phone] Miguel Yeung M.D. [address] [place] [phone] 06/28/2025 1:00 PM CDT Office Visit Department of Neurologic Surgery in [place], [place] [address] [place] [phone] Miguel Yeung M.D. [address] [place] [phone] 11/23/2025 12:50 PM CDT Appointment Department of Laboratory Medicine in [address] [phone] Nadiya Ramesh M.D. [address] [place] [phone] 11/23/2025 3:00 PM CDT Office Visit Department of Family Medicine, [facility], in [address] [phone] Elaine Russo M.D. [address] [place] [phone] documented as of this encounter Visit Diagnoses Not on filedocumented in this encounter Additional Health Concerns Assessment Noted Time PHQ-9 Depression Total Score: 10 02/16/ 025 6:08 PM CDT documented as of this encounter Care Teams Buckle Frame Shaper Relationship Specialty Start Date End Date Elaine Russo M.D. [address] [place] [phone] PCP - General 02/02/22 Dr. Caro-Lizzie Dental Dentist 05/25/24 documented as of this encounter
--- OUTSIDE RECORDS SUMMARY | 2025-06-12 02:17 | XMS_ITS | Encounter Summary ---
Author Organization [facility] Address [address] [place] [address] Care Team Providers Care Associate School Psychologist Name Role Phone Elaine Russo M.D. Primary Care Provider [phone] Reason for Visit * Reason Comments Med Refill Encounter Details Date Type Department Care Team (Late st Contact Info) Description 06/11/2025 Refill Department of Family Medicine, [facility], in [address] [phone] [facility] [address] [place] [phone] Med Refill Social History Tobacco Use Types Packs/Day Years [...] things needed for daily living? Yes 05/26/2025 [facility] Utilities Answer Date Recorded In the past 12 months has [facility] [employer], gas, oil, or water [employer] threatened to shut off services in your home? No 05/26/2025 Depression Answer Date Recor ded PHQ-9 Total Score (max 27) 10 02/16 Housing Stability Answer Date Recorded What is your living situation today? I have a [facility] place to live 05/26/2025 Education Answer Date Recorded What is the highest level of school you have completed or the highest degree you have received? Bachelor's degree (e.g., BA, AB, BS) 06/07/2019 Comments No Sex and Gender Information Value Date Recorded Sex Assigned at Female 06/15/2021 1:11 PM CDT Legal Sex Female 10:30 AM PSYCHOLOGIST INDUSTRIAL ORGANIZATIONAL Gender Identity Female 09/04/2017 2:32 PM PSYCHOLOGIST INDUSTRIAL ORGANIZATIONAL Sexual Orientation Straight 09/04/2017 2: 32 PM PSYCHOLOGIST INDUSTRIAL ORGANIZATIONAL documented as of this encounter Plan of Treatment Upcoming Encounters Date Type Department Care Team (Latest Contact Info) Description 06/12/2025 9:00 AM CDT Office Visit Department of Family Medicine, [facility], in [address] [phone] Discharge Disposition: Home or Self Care 06/15/2025 10:50 AM CDT Appointment Department of Laboratory Medicine in [place], [place] [address] [place] [address] Franck Lindo M.D. [address] [place] [phone] 06/16/2025 3:00 PM CDT Office Visit Division of Nephrology and Hypertension in [place], [place] [address] [place] [phone] Franck Lindo M.D. [address] [place] [phone] 06/22/2025 1:00 PM CDT Telemedicine Division of Pain Medicine in [place], [place] [address] [place] [phone] Helen Quigley, UMM, LABELING MACHINE OPERATOR, M.S. [address] [place] [phone] 06/24/2025 1:00 PM CDT Comprehensive Visit Department of Physical Medicine and Rehabilitation in [address] [phone] Nadiya Ramesh M.D. [address] [place] [phone] Elin Aaron, O.TChris [address] [place] [phone] 06/25/2025 1:15 PM CDT Clinical Communication Virtual Review in [place], [place] 200 [place] [phone] 06/28/2025 9:00 AM CDT Appointment Department of Radiology, [facility] in [place], [place] [address] [place] [phone] Miguel Yeung M.D. [address] [place] [address] 06/28/2025 1:00 PM CDT Office Visit Department of Neurologic Surgery in [place], [place] [address] [place] [phone] Miguel Yeung M.D. [address] [place] [phone] 11/23/2025 12:50 PM CDT Appointment Department of Laboratory Medicine in [address] [phone] Nadiya Ramesh M.D. [address] [place] [phone] 11/23/2025 3:00 PM CDT Office Visit Department of Family Medicine, [facility], in [address] [phone] Elaine Russo M.D. [address] [place] [phone] documented as of this encounter Visit Diagnoses Not on filedocumented in this encounter Additional Health Concerns Assessment Noted Time PHQ-9 Depression Total Score: 10 025 6:08 PM CDT documented as of this encounter Care Teams Associate School Psychologist Relationship Specialty Start Date End Date Elaine Russo M.D. [address] [place] [phone] PCP - General 02/02/22 Dr. Caro-[facility] Dental Dentist 05/25/24 documented as of this encounter
--- OUTSIDE RECORDS SUMMARY | 2025-06-12 02:17 | XMS_ITS | Encounter Summary ---
Author Organization [facility] Address [address] [place] [address] Care Team Providers Care Photocopier Technician Name Role Phone Elaine Russo M.D. Primary Care Provider [phone] Encounter Details Date Type Department Care Team ([facility] st Contact Info) Description 08/06/2022 Orders Only [facility] [address] [place] [phone] [facility], Provider, MD Screening Test Laboratory Social History Tobacco Use Types Packs/Day Years Used Date Smoking Tobacco: Former Cigarettes 0 09/02/1978 - 03/05/1986 Smokeless Tobacco: Never Alcohol Use Standard Drinks/Week Comments Yes 2 (1 standard drink = 0.6 oz pure alcohol) Usage is generally less than noted Humiliation, Afraid, Rape, and Kick questionnair e Answer Date Recorded Within the last year, have y ou been afraid of your partner or ex-partner? No 03/14/2022 Within the last year, have y ou been humiliated or emotionally abused in other ways by your partner or ex-partner? No Within the last year, have y ou been kicked, hit, slapped, or otherwise physically hurt by your partner or ex-partner? No 03/14/2022 Within the last year, have y ou been raped or forced to have any kind of sexual activity by your partner or ex-partner? No 03/14/2022 Hunger Vital Sign Answer Date Recorded Within the past 12 months, y ou worried that your food would run out before you got the money to buy more. Never true 03/14/20 22 Within the past 12 months, t he food you bought just didn't last and you didn't have money to get more. Never true 03/14/2022 PRAPARE - Transportation Answer Date Re corded In the past 12 months, has l ack of transportation kept you from medical appointments or from getting medications? No 03/02 In the past 12 months, has l ack of transportation kept you from meetings, work, or from getting things needed for daily living? No 03/14/2022 Housing Stability Vital Sign Answer Zhao e Recorded In the last 12 months, was t here a time when you were not able to pay the mortgage or rent on time? No 03/14/2022 In the last 12 months, how many places have you lived? 1 03/14/2022 In the last 12 months, was t here a time when you did not have a steady place to sleep or slept in a longterm (including now)? No 03/14/2022 Depression Answer Date Recor ded PHQ-9 Total Score (max 27) 8 03/07 Education Answer Date Recorded What is the highest level of school you have completed or the highest degree you have received? Bachelor's degree (e.g., BA, AB, BS) 06/07/2019 Comments No Sex and Gender Information Value Date Recorded Sex Assigned at Female 06/15/2021 1:11 PM CDT Legal Sex Female 10:30 AM HUMAN FACTORS SCIENTIST Gender Identity Female 09/04/2017 2:32 PM HUMAN FACTORS SCIENTIST Sexual Orientation Straight 09/04/2017 2: 32 PM HUMAN FACTORS SCIENTIST documented as of this encounter Plan of Treatment Upcoming Encounters Date Type Department Care Team (Latest Contact Info) Description 06/12/2025 9:00 AM CDT Office Visit Department of Family Medicine, [facility], in [place], [place] [address] [place] [phone] Discharge Disposition: Home or Self Care 06/15/2025 10:50 AM CDT Appointment Department of Laboratory Medicine in [place], [place] [address] [place] [phone] Franck Lindo M.D. [address] [place] [phone] 06/16/2025 3:00 PM CDT Office Visit Division of Nephrology and Hypertension in [place], [place] [address] [place] [phone] Franck Lindo M.D. [address] [place] [phone] 06/22/2025 1:00 PM CDT Telemedicine Division of Pain Medicine in [place], [place] [address] [place] [phone] Helen Quigley, UMM, CAPSULE FILLING MACHINE OPERATOR, M.S. [address] [place] [phone] 06/24/2025 1:00 PM CDT Comprehensive Visit Department of Physical Medicine and Rehabilitation in [address] [phone] Nadiya Ramesh M.D. [address] [place] [phone] Elin Aaron, O.TChris [address] [place] [phone] 06/25/2025 1:15 PM CDT Clinical Communication Virtual Review in [place], [place] 200 [place] [phone] 06/28/2025 9:00 AM CDT Appointment Department of Radiology, [facility] in [place], [place] [address] [place] [phone] Miguel Yeung M.D. [address] [place] [phone] 06/28/2025 1:00 PM CDT Office Visit Department of Neurologic Surgery in [place], [place] [address] [place] [phone] Miguel Yeung M.D. [address] [place] [phone] 11/23/2025 12:50 PM CDT Appointment Department of Laboratory Medicine in [address] [phone] Nadiya Ramesh M.D. [address] [place] [phone] 11/23/2025 3:00 PM CDT Office Visit Department of Family Medicine, [facility], in [address] [phone] Elaine Russo M.D. [address] [place] [phone] documented as of this encounter Visit Diagnoses Diagnosis Screening Test Laboratory documented in this encounter Additional Health Concerns Infection Onset Date Last Indicated Resolved Time COVID19 Pending 08/06/2022 08/06/2022 08/06/2022 1 1:54 PM HUMAN FACTORS SCIENTIST COVID19 Pending 12/24/2023 12/24/2023 12/24/2023 5 :16 PM CDT Assessment Noted Time PHQ-9 Depression Total Score: 8 03/07/20 21 8:28 AM CDT documented as of this encounter Care Teams Photocopier Technician Relationship Specialty Start Date End Date Elaine Russo M.D. [address] [place] [phone] PCP - General 02/02/22 Dr. Caro-Lizzie Dental Dentist 05/25/24 documented as of this encounter
--- OUTSIDE RECORDS SUMMARY | 2025-06-12 02:17 | XMS_ITS | Encounter Summary ---
Author Organization [facility] Address [address] [place] [address] Care Team Providers Care Fire Extinguisher Mechanic Name Role Phone Elaine Russo M.D. Primary Care Provider [phone] Encounter Details Date Type Department Care Team ([facility] st Contact Info) Description 08/06/2022 Orders Only [facility]ST [facility] [address] [place] [phone] [facility], Provider, MD Screening Test Laboratory Social History [...] place to sleep or slept in a fci (including now)? No 03/14/2022 Depression Answer Date [...] PM CDT Legal Sex Female 10:30 AM SUPERVISOR COMPOSING ROOM Gender Identity Female 09/04/2017 2:32 PM SUPERVISOR COMPOSING ROOM Sexual Orientation Straight 09/04/2017 2: 32 PM SUPERVISOR COMPOSING ROOM documented as of this encounter Plan of Treatment Upcoming Encounters Date Type Department Care Team (Latest Contact Info) Description 06/12/2025 9:00 AM CDT Office Visit Department of Family Medicine, [facility], in [place], [place] [address] [place] [phone] Discharge Disposition: Home or Self Care 06/15/2025 10:50 AM CDT Appointment Department of Laboratory Medicine in [place], [place] [address] [place] [phone] Franck Lindo M.D. [address] [place] [phone] 06/16/2025 3:00 PM CDT Office Visit Division of Nephrology and Hypertension in [place], [place] [address] [place] [phone] Franck Lindo M.D. [address] [place] [phone] 06/22/2025 1:00 PM CDT Telemedicine Division of Pain Medicine in [place], [place] [address] [place] [phone] Helen Quigley, UMM, CONTRACTS ANALYST, M.S. [address] [place] [phone] 06/24/2025 1:00 PM CDT Comprehensive Visit Department of Physical Medicine and Rehabilitation in [address] [phone] Nadiya Ramesh M.D. [address] [place] [phone] Elin Aaron, O.TChris [address] [place] [phone] 06/25/2025 1:15 PM CDT Clinical Communication Virtual Review in [place], [place] 200 [place] [phone] 06/28/2025 9:00 AM CDT Appointment Department of Radiology, [facility] in [place], [place] [address] [place] [phone] Miguel Yeung M.D. [address] [place] [phone] 06/28/2025 1:00 PM CDT Office Visit Department of Neurologic Surgery in [place], [place] [address] [place] [phone] Miguel Yeung M.D. [address] [place] [phone] 11/23/2025 12:50 PM CDT Appointment Department of Laboratory Medicine in [address] [phone] Nadiya Ramesh M.D. [address] [place] [phone] 11/23/2025 3:00 PM CDT Office Visit Department of Family Medicine, [facility], in [address] [phone] Elaine Russo M.D. [address] [place] [phone] documented as of this encounter Visit Diagnoses Diagnosis Screening Test Laboratory documented in this encounter Additional Health Concerns Infection Onset Date Last Indicated Resolved Time COVID19 Pending 08/06/2022 08/06/2022 08/06/2022 1 1:54 PM SUPERVISOR COMPOSING ROOM COVID19 Pending 12/24/2023 12/24/2023 12/24/2023 5 :16 PM CDT Assessment Noted Time PHQ-9 Depression Total Score: 8 03/07/20 21 8:28 AM CDT documented as of this encounter Care Teams Fire Extinguisher Mechanic Relationship Specialty Start Date End Date Elaine Russo M.D. [address] [place] [phone] PCP - General 02/02/22 Dr. Caro-Lizzie Dental Dentist 05/25/24 documented as of this encounter
--- OUTSIDE RECORDS SUMMARY | 2025-06-12 02:17 | XMS_ITS | Clinical Summary ---
Author Organization [facility] Address [address] [place] [address] Care Team Providers Care Directory Operator Name Role Phone Elaine Russo M.D. Primary Care Provider Source Comments Patient records contain information from all sites at [facility]. For routine questions regarding patient records, call [phone] during business hours, M-F 8:00 AM - 5:00 PM Central Time. Record requests for emergency care only can be directed to [phone] at any time.[facility] Allergies Active Allergy Reactions Criticality Noted Date Comments Nitrofurantoin Monohyd/M-Cryst GI intolerance 09/10/2024 Oxycodone Itching Low 10/12/2014 Prednisone Other (see comments) Low 02/14/2018 Manic episode Medications * This document contains information received from the source organization and may not represent a complete record from that organization. cholecalciferol (for_VITAMIN D3) 2,000 Unit tablet Take 1 tablet by mouth daily. 017 Active divalproex (for_DEPAKOTE ER) 500 mg 24 hr tablet Take 2 tablets by mouth at bedtime. 018 Active IRON,CARBONYL/ASC ORBIC ACID (VITRON-C ORAL) Take 1 tablet by mouth daily. Anemia 011 Active acetaminophen (TYLENOL) 500 mg tablet Take 2 tablets (1,000 mg total) by mouth every 6 (six) hours as needed for pain or mild pain or score 1-3 of 10. 06/23/2 020 Active multivitamin,tx-m inerals (Multi-Vitamin HP/Minerals) capsule Take 1 capsule by mouth daily. Active carboxymethylcell ulose (REFRESH PLUS) 0.5 % ophthalmic solution 1 drop as needed for dry eyes. Active denosumab (PROLIA) 60 mg/mL syringe Inject 1 mL (60 mg total) under the skin every 6 (six) months. 1 mL 022 Active cyanocobalamin (VITAMIN B12) 1,000 mcg tablet Take 1 tablet (1,000 mcg total) by mouth 3 (three) times a week. 100 tablet 11 022 Active clotrimazole (LOTRIMIN) 1 % cream Apply 1 Application topically 2 (two) times a day. Apply to rashes. 45 g 3 023 Active UNABLE TO FIND Take 375 each by mouth as needed. Med Name: Advil Dual Action with Acetaminophen. 125mg of Ibuprofen and 250mg of Acetaminophen per tablet. Active albuterol 90 mcg/actuation inhaler Inhale 2 puffs every 4 (four) hours as needed for wheezing. 8 g 11 024 Active DME Gradient compression garments & suppliesIndicatio ns:Lymphedema 4 Unspecified Active DME Gradient compression garments & suppliesIndicatio ns:Lymphedema DME Order 1 Unspecified 024 Active QUEtiapine (SEROqueL) 100 mg tablet Take 2 tablets (200 mg total) by mouth at bedtime. 180 tablet 024 Active pantoprazole (Protonix) 40 mg EC tabletIndications :Heartburn TAKE ONE TABLET BY MOUTH EVERY MORNING BEFORE BREAKFAST 90 tablet 3 025 Active estradioL (Estrace) 0.1 mg/g (0.01%) vaginal cream Apply dime-sized amount to the external urethra 3 nights weekly 42.5 g 5 025 Active cephalexin (Keflex) 250 mg capsuleIndication s:Cystitis Recurrent Take 1 capsule (250 mg total) by mouth daily. 90 capsule 3 025 2025 Active ondansetron ODT (Zofran-ODT) 4 mg disintegrating tablet Dissolve 1 tablet (4 mg total) in the mouth every 4 (four) hours as needed for nausea for up to 20 doses. for nausea. 20 tablet 025 Active traMADoL (Ultram) 50 mg tabletIndications :Chronic Pain/Nonacute Pain Take 1 tablet (50 mg total) by mouth every 6 (six) hours as needed for pain Indications: Chronic Pain/Nonacute Pain. 15 tablet 025 Active semaglutide (Ozempic) 1 mg/dose (4 mg/3 mL) injectionIndicati ons:Diabetes Mellitus Type 2 Without Complication (HCC),Morbid Obesity (HCC) Inject 1 mg under the skin every 7 (seven) days. 3 mL 3 025 Active dorzolamide-timol oL (Cosopt) 22.3-6.8 mg/mL ophthalmic solution Administer 1 drop into both eyes 2 (two) times a day. 10 mL 11 025 Active latanoprost (Xalatan) 0.005 % ophthalmic solution Administer 1 drop into both eyes at bedtime. 7.5 mL 11 025 Active pravastatin (PravachoL) 10 mg tablet Take 1 tablet (10 mg total) by mouth daily. 90 tablet 3 025 Active pravastatin (PravachoL) 10 mg tablet Take 1 tablet (10 mg total) by mouth daily. 90 tablet 3 024 2024 Disconti nued(Reo rder) Active Problems Problem Noted Date Diagnosed Date Trochanteric Bursitis Right Hip 05/31/2025 History Of Falling 04/28/2024 Hyperlipidemia 04/18/2023 Deficiency Vitamin B12 04/18/2023 Nodule Thyroid 03/14/2023 Overview (05/25/2025): 2.5 cm hypodense right thyroid nodule noted on 03/11/2023 CT. 05/25/25 U/S thyroid: 3 cm nodule IMPRESSION: 1. Stable previously sampled 3 cm nodule in the right thyroid lobe Ask [place] Expert --Low-suspicion nodule: FNA if greater than or equal to 25 mm; US f/u in 2-5 yrs if greater than or equal to 15 mm Chronic Pain Syndrome 10/03/2022 Hypertensive Chronic Kidney Disease With Stage 1 Through Stage 4 Chronic Kidney Disease, Or Unspecified Chronic Kidney Disease 09/07/2022 Pain Sacral 03/30/2022 Tremor Essential 10/19/2021 Osteoporosis 06/02/2021 Overview (06/02/2021): Dx on DEXA 05/2021 Mixed Irritable Bowel Syndrome 05/30/2021 Fibromyalgia 03/08/2021 Chronic Kidney Disease (CKD) , Stage 3b Glomerular Filtration Rate (GFR) 30 To 44 10/14/2019 Asthma Mild Intermittent 09/21/2019 Meningioma Brain 05/25/2019 Overview (05/25/2019): Noted MRI May 2019. Repeat in 6 months. Age Related Nuclear Cataract Bilateral 9 Overview (04/07/2019): Added automatically from request for surgery [id number] Carpal Tunnel Syndrome Left 12/15/2018 Overview (12/15/2018): Added automatically from request for surgery [id number] Disturbance Visual 05/28/2017 Detachment Vitreous Posterior Left 05/21/2017 Incontinence Urinary Stress And Urge 03/20/2016 Assessment & Plan (03/29/2025 3:18 PM CDT): Urinary incontinence Managed with behavioral changes and pads. Not overly bothersome. No immediate need for additional interventions. - Continue using urinary incontinence pads as needed. - Monitor symptoms and report if she worsens. She is aware of behavioral changes, PT, medications and procedures to considers Morbid Obesity 10/05/2015 Bypass Gastric Juan En Y Status Post 10/05/2015 Hyperparathyroidism Renal Secondary 08/09/2014 Overview (01/22/2017): Secondary Hyperparathyroidism (Of Renal Origin) Hyperparathyroidism, secondary Deficiency Vitamin D 12/01/2012 Overview (12/30/2018): Overview: Problem list name updated by automated process. 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 -Tapered off Lamictal -Started Tegretol 200mg 2 tabs BID -Seroquel 400mg QHS -Seroquel 50mg PRN daily -Klonopin 0.5mg BID -Tx HTN (see scanned record) --Pt reported s/e from Tegretol and did not wish to continue-->Li, pt reported s/e as above and would not continue, switched to Depakote 07/2011 MELISSA 07/2011 for [facility]co Diabetes Mellitus Type 2 Without Complication Overview (02/21/2020): Overview: Problem list name updated by automated process. 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 Pain Low Back Unspecified Resolved Problems Problem Noted Date Diagnosed Date Resolved Date PreDiabetes 12/31/2019 02/21/2020 Pain Shoulder Left 09/21/2019 Overview (09/26/2019): Added automatically from request for surgery [id number] Pain Facial Acute 05/18/2019 07/03/2019 Family History Coronary Artery Disease 03/06/2017 02/21/2020 Osteopenia 10/18/2016 06/02/2021 Lipedema 10/27/2015 02/21/2020 Hypertension Essential Primary 10/05/2015 04/17/2023 Surgery Bariatric Status Post 08/09/2014 02/21/2020 Overview (10/20/2018): S/P gastric bypass Family History Of Other Endo crine Nutritional And Metabolic Diseases 01/24/2004 02/21/2020 Overview (12/30/2018): Overview: Problem list name updated by automated process. Provider to review and confirm Injury Rotator Cuff Initial Left 06/13/2021 Encounters * This document contains information received from the source organization and may not represent a complete record from that organization. Date Type Department Care Team Description 06/11/2025 Refill Department of Family Medicine, [facility], in [address] [phone] Km Boswell P.A.-C., P.A. Med Refill 06/09/2025 10:30 AM CDT Procedure visit Division of Pain Medicine in [address] [phone] Manuel Walker M.D. Trochanteric Bursitis Right Hip; Pain Hip Right 06/02/2025 9:56 AM CDT - 06/02/2025 11:59 PM CDT Hospital Encounter Division of Pain Medicine in [address] [phone] Mya Molina, UMM, C.N.P. Pain Sacral Discharge Disposition: Home or Self Care 06/02/2025 9:00 AM CDT Office Visit Division of Pain Medicine in [address] [phone] Mya Molina APRN, C.N.P. Pain Sacral (Primary Dx); Trochanteric Bursitis Right Hip; Chronic Pain Syndrome 06/01/2025 Clinical Communication Department of Family Medicine, [facility], in [address] [phone] Elaine Russo M.D. 05/31/2025 Results Follow-Up Department of Family Medicine, [facility], in [address] [address] Nadiya Ramesh M.D. ECG 12 Lead 05/26/2025 11:31 AM CDT - 05/26/2025 11:59 PM CDT Hospital Encounter Department of Radiology in [address] [phone] Nadiya Ramesh M.D. Pain Chest Discharge Disposition: Home or Self Care 05/26/2025 11:00 AM CDT Office Visit Department of Family Medicine, [facility], [address] [phone] Elaine Russo M.D. Olson, Beata E, R.N. Annual Medicare Examination Return (Primary Dx) 05/26/2025 10:20 AM CDT Office Visit Department of Family Medicine, [facility], [address] [address] Nadiya Ramesh M.D. Annual Medicare Examination Return (Primary Dx); Pain Chest; Shortness Of Breath; Headache Unspecified; Lymphedema; Diabetes Mellitus Type 2 Without Complication (HCC); Bipolar I Disorder (HCC); Anxiety Generalized Disorder; Other Fdc Current Drug Therapy 05/26/2025 9:20 AM CDT - 05/26/2025 11:30 AM CDT Hospital Encounter Department of Laboratory Medicine in [address] [address] Elaine Russo M.D. Diabetes Mellitus Type 2 Without Complication (HCC); Nodule Thyroid; Hyperlipidemia; Deficiency Vitamin D; Deficiency Vitamin B12; Deficiency Iron Personal History Discharge Disposition: Home or Self Care 05/26/2025 Clinical Communication Department of Family Medicine, [facility], in [address] [phone] Elaine Russo M.D. Bone density 05/25/2025 9:43 AM CDT - 05/25/2025 11:59 PM CDT Hospital Encounter Department of Radiology in [address] [phone] Elaine Russo M.D. Nodule Thyroid Discharge Disposition: Home or Self Care 05/25/2025 Results Follow-Up Department of Family Medicine, [facility], in [address] [phone] Aurora Mcpherson M.D. US Thyroid 05/24/[address] [place] [phone] Bharathi Rain M.D. Bipolar I Disorder (HCC) (Primary Dx); Anxiety Generalized Disorder; Other Fdc Current Drug Therapy 04/19/2025 Clinical Communication Division of Nephrology and Hypertension in [place], [place] [address] [place] [address] Franck Lindo M.D. Appt Request (June 2025) 04/14/[address] [place] [phone] Bharathi Rain M.D. Bipolar I Depressed (HCC) (Primary Dx); Bipolar I Disorder (HCC); Anxiety Generalized Disorder; Other Fdc Current Drug Therapy 03/29/2025 3:00 PM CDT Office Visit Department of Urology in [address] [phone] Arlin Aldridge, FANTAS, P.A.-C., P.A. Cystitis Recurrent (Primary Dx); Incontinence Urinary Stress And Urge Discharge Disposition: Home or Self Care 03/26/2025 11:30 AM CDT Office Visit Division of Nephrology and Hypertension in [place], [place] [address] [place] [address] Franck Lindo M.D. Chronic Kidney Disease (CKD), Stage 3b Glomerular Filtration Rate (GFR) 30 To 44 (HCC) (Primary Dx) 03/25/2025 11:00 AM CDT Office Visit Department of Orthopedic Surgery in [place], [place] [address] [place] [phone] Neri Beatty M.D., Ph.D. 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 (Primary Dx) 03/25/2025 9:52 AM CDT - 03/25/2025 11:59 PM CDT Hospital Encounter Department of Radiology, [facility], in [address] [phone] Sarita Da Silva [facility], [facility].-C. 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 Discharge Disposition: Home or Self Care 03/23/2025 9:52 AM CDT - 03/23/2025 11:59 PM CDT Hospital Encounter Department of Laboratory Medicine in [address] [address] Franck Lindo M.D. Chronic Kidney Disease (CKD), Stage 3b Glomerular Filtration Rate (GFR) 30 To 44 (HCC) Discharge Disposition: Home or Self Care 03/23/2025 9:52 AM CDT - 03/23/2025 11:59 PM CDT Hospital Encounter Department of Laboratory Medicine in [address] [address] Franck Lindo M.D. Chronic Kidney Disease (CKD), Stage 3b Glomerular Filtration Rate (GFR) 30 To 44 (HCC) Discharge Disposition: Home or Self Care 03/22/2025 12:30 PM CDT Clinical Communication Virtual Review in [address] [phone] Pre-visit Intake from Last 3 Months Immunizations Immunization Administration Dates Next Due HZV (ZOSTAVAX) 02/13/2016 HepB Adult 03/20/2016,10/05/2015,08/23/2015 Influenza Split 07/02/2017,07/02/2016,06/04/2011 Influenza TIV (IM) 06/12/2011,07/21/2008, 001 Influenza high dose QV(65 ye ars or older) (PF) 07/02/2023,07/03/2022,07/26/2021 Influenza, Injectable, Quadrivalent 06/23/2014 Influenza, Seasonal, Injectable 07/21/2008 Influenza, Unspecified 06/24/2017,2015,06/23/2014,2010,05/31/2009,07/21/2008 PCV20 07/03/2022 PPSV23 05/30/2021,06/23/2014 RZV (SHINGRIX) 09/21/2019,07/17/2019 SARS-COV-2 (COVID-19) - MODE RNA (12 YEARS AND OLDER) Fall Seasonal 05/26/2025,05/25/2024,02/03/2024,2022 SARS-COV-2 (COVID-19) - MODERNA(Discontinued) 01/24/2022,07/26/2021,11/02/2020,2020 SARS-COV-2 (COVID-19) - PFIZ ER BIVALENT TS(Discontinued)(12 YEARS OR OLDER) 04/26/2023,08/21/2022 Td (Adult), adsorbed 01/24/2004 Td Preservative Free (TENIVA C, DECAVAC) 02/13/2016,01/24/2004 Td, (Adult) Unspecified 01/24/2004 Tdap 12/30/2023, 3,12/04/2012,2006 influenza trivalent high dos e (HD)(PF) 05/26/2025,05/25/2024,07/02/2017,2015 influenza trivalent vaccine (6 months and older)(PF) 06/12/2011 influenza vaccine quad (FLUZONE/FLUARIX) (6 months and older)(PF) 07/14/2020,06/22/2019,09/05/2018,2014,04/29/2013 Family History Medical History Relation Name Comments Arthritis Father Luis F Mejia Coronary artery disease Father Luis F Mejia Heart attack Father Luis F Story Hypertension Father Luis F Story Kidney disease Father Luis F Story Lung cancer Father Luis F Mejia 2016, mult iple medical conditions. Chf, hx heart attack x2, stents placed in heart, kidney diseasec Obesity Father Luis F Mejia Pacemaker battery Father Luis F Mejia Alzheimer's disease Grandfather paternal Alcohol abuse Mother Rosamaria Mejia Anxiety disorder Mother Rosamaria Mejia COPD Mother Rosamaria Mejia Depression Mother Rosamaria Mejia Lung cancer Mother Rosamaria Mejia in 1994 fr om COPD Osteoporosis Mother Rosamaria Story History of substance abuse Son 1 Drug abuse Son [address] Epilepsy/ seizures Son [address] Obesity Son [address] Not current ly obese Alcohol abuse Son [address] Former use, no current use Drug abuse Son [address] Former u se, no current use Obesity Son 3 Christopher Rahmann Drug abuse Son 4 Christopher Obesity Son 4 Christopher Drug abuse Son 5 Hi Epilepsy/ seizures Son 5 Hi Obesity Son 5 Hi Relation Name Status Comments Father Luis F Mejia Alive Grandfather paternal Mother Rosamaria Mejia Alive Son 1 Son 2 Hi Bestann Son 3 Bharathi Rahmann Son 4 Rober Alive Son 5 Hi Alive Social History Tobacco Use Types Packs/Day [...] things needed for daily living? Yes 05/26/2025 [facility] Utilities Answer Date Recorded In the past 12 months has th e electric, gas, oil, or water company threatened to shut off services in your home? No 05/26/2025 Depression Answer Date Recor ded PHQ-9 Total Score (max 27) 10 02/16 Housing Stability Answer Date Recorded What is your living situation today? I have a [facility] place to live 05/26/2025 Education Answer Date Recorded What is the highest level of school you have completed or the highest degree you have received? Bachelor's degree (e.g., BA, AB, BS) 06/07/2019 Comments No Sex and Gender Information Value Date Recorded Sex Assigned at Female 06/15/2021 1:11 PM CDT Legal Sex Female 10:30 AM COLLECTION CORRESPONDENT Gender Identity Female 09/04/2017 2:32 PM COLLECTION CORRESPONDENT Sexual Orientation Straight 09/04/2017 2: 32 PM COLLECTION CORRESPONDENT Last Filed Vital Signs Vital Sign Reading Time Taken Comments Blood Pressure 128/61 06/02/2025 10:47 AM CDT Pulse 75 06/02/2025 10:47 AM CDT Temperature 36.5 C (97.7 F) 06/02/2025 10:06 AM CDT Respiratory Rate 16 01/20/2025 9:25 AM CDT Oxygen Saturation 98% 06/02/2025 10:47 AM CDT Inhaled Oxygen Concentration - - Weight 115 kg (252 lb 10.4 oz) 05/26/2025 9:46 A M CDT Height 160 cm (5' 2.99) 05/26/2025 9:46 AM CDT Body Mass Index 44.77 05/26/2025 9:46 AM CDT Plan of Treatment Upcoming Encounters Date Type Department Care Team (Latest Contact Info) Description 06/12/2025 9:00 AM CDT Office Visit Department of Family Medicine, [facility], in [address] [phone] Discharge Disposition: Home or Self Care 06/15/2025 10:50 AM CDT Appointment Department of Laboratory Medicine in [place], [place] [address] [place] [address] Franck Lindo M.D. [address] [place] [phone] 06/16/2025 3:00 PM CDT Office Visit Division of Nephrology and Hypertension in [place], [place] [address] [place] [phone] Franck Lindo M.D. [address] [place] [phone] 06/22/2025 1:00 PM CDT Telemedicine Division of Pain Medicine in [place], [place] [address] [place] [phone] Helen Quigley, UMM, EARLY LEARNING TEACHER, M.S. [address] [place] [phone] 06/24/2025 1:00 PM CDT Comprehensive Visit Department of Physical Medicine and Rehabilitation in [address] [phone] Nadiya Ramesh M.D. [address] [place] [phone] Elin Aaron, OLoree [address] [place] [phone] 06/25/2025 1:15 PM CDT Clinical Communication Virtual Review in [place], [place] [address] [place] [phone] 06/28/2025 9:00 AM CDT Appointment [facility] [place], [place] [address] [place] [phone] Miguel Yeung M.D. [address] [place] [address] 06/28/2025 1:00 PM CDT Office Visit Department of Neurologic Surgery in [place], [place] [address] [place] [address] Miguel Yeung M.D. [address] [place] [address] 11/23/2025 12:50 PM CDT Appointment Department of Laboratory Medicine in [address] [phone] Nadiya Ramesh M.D. [address] [place] [phone] 11/23/2025 3:00 PM CDT Office Visit Department of Family Medicine, [facility], in [address] [phone] Elaine Russo M.D. [address] [place] [phone] Health Maintenance Due Date Last Done Comments CT Colonography 1955 Cologuard 1955 FIT 1955 RSV vaccine - (32-36 weeks) or 50+ years (1 - Risk 50-74 years 1-dose series) 11/09/2005 Bone Density Scan Monitoring 05/20/2025 05/20/2024, 03/08/2023, 06/01/2021, Additional history exists Diabetic Office Visit with Foot Exam 05/25/2025 05/25/2024, 07/02/2023, 11/29/2020, Additional history exists Mammogram 09/11/2025 09/11/2024, 12/2 05/2023, 07/04/2022, Additional history exists COVID-19 Vaccine (2024- season) 2025 05/26/2025, 05/25/2024, 02/03/2024, Additional history exists Hemoglobin A1C 11/23/2025 05/26/2025, 08/02, 05/20/2024, Additional history exists Diabetic Eye Exam 02/26/2026 02/26/2025, , 11/20/2021, Additional history exists Urine Albumin 03/23/2026 03/23/2025, 09/03, 10/09/2023, Additional history exists Colonoscopy 05/18/2026 05/18/2016, 08/01/2007 Colorectal Cancer Screening 05/18/2026 Creatinine Level (Kidney Function Test) 05/26/2026 05/26/2025, 03/23/2025, 09/23/2024, Additional history exists Office Visit for Blood Pressure Check / Re-check 05/26/2026 05/26/2025 Visit: Chronic Disease, age 18+ 05/26/2026 05/26/2025, 01/20/2025, 04/11/2022 Visit: Medicare Annual Wellness 05/27/2026 05/26/2025 Lipid (Cholesterol) Screening 05/26/2030 05/26/2025, 05/20/2024, 05/02/2023, Additional history exists DTaP,Tdap,and Td Vaccines (6 - Td or Tdap) 12/29/2033 12/30/2023, 02/13/2016, 12/04/2012, Additional history exists Hepatitis C Screening Completed 10/03/2015 Hepatitis B Vaccines Completed 03/20/2016, 10/05/2015, 08/23/2015 Zoster Vaccines Completed 09/21/2019, 07/03, 02/13/2016 Pneumococcal vaccine (50+ years) Completed 07/03/2022, 05/30/2021, 06/23/2014 Depression Screening (Annual PHQ-2) Completed 11/19/2024, 11/19/2024 Glucose Test for Med Monitoring Discontinued 05/26/2025, 05/26/2025, 03/23/2025, Additional history exists Influenza Vaccine Completed 05/26/2025, , 07/02/2023, Additional history exists Fall Risk Screen (Annual) Completed 06/02/2025 HPV Vaccines Aged Out No longer eligi ble based on patient's age to complete this topic IPV Vaccines Aged Out No longer eligi ble based on patient's age to complete this topic Medical Devices Implanted Type Area Cylinder Honer Device Identifier Shelf Expiration Date Model / Serial / Lot Knee Implant Knee Implant Bilateral: Knee Description:Bilateral Knee I mplants; 2008 and 2010 Lens Acr Sa60at Ant +13.5d - [id number] - [id number] Implanted:Qty : 1 on 06/03/2019 by Tavia Cobb M.D. at [facility] [employer] Ocular Lens Left: Eye [employer] 06/01/2023 SA60AT.13 5 / [id number] / . Lens Acr Sa60at Ant +13.5d - [id number] - [id number] Implanted:Qty : 1 on 07/29/2019 by Tavia Cobb M.D. at [facility] [employer] Ocular Lens Right: Eye [employer] 10/02/2023 SA60AT.13 5 / [id number] / Scrw Reu 4.5x16 - [id number] Implanted:Qty : 1 on 02/22/2020 at [facility] Shoulder Implant Left: Shoulder Elinor 05/17/2024 [id number] / / [id number] Glnsphr Reu Ecc 2x2x36 - [id number] Implanted:Qty : 1 on 02/22/2020 at [facility] Shoulder Implant Left: Shoulder Elinor 06/17/2024 [id number]-[id number] 602 / / [id number] Hum Ins Reu Rvrs 4x36 - [id number] Implanted:Qty : 1 on 02/22/2020 at [facility] Shoulder Implant Left: Shoulder Ruffin 09/13/2024 5571-S-36 04 / / [id number] Hum Cup Reu 4x36 - [id number] Implanted:Qty : 1 on 02/22/2020 at [facility] Shoulder Implant Left: Shoulder Ruffin 08/11/2024 [id number] / / [id number] Hum Stm Reu S 13x97 - [id number] Implanted:Qty : 1 on 02/22/2020 at [facility] Shoulder Implant Left: Shoulder Elinor 07/20/2024 5567-P-30 13 / / [id number] [id number] Glnd Reu 28 - [id number] Implanted:Qty : 1 on 02/22/2020 at [facility] Shoulder Implant Left: Shoulder Elinor 08/08/2024 8187-3850 / / [id number] Scrw Reu 6.5x32 - [id number] Implanted:Qty : 1 on 02/22/2020 at [facility] Shoulder Implant Left: Shoulder Elinor 08/14/2024 8330-6917 / / [id number] Scrw Reu 4.5x16 - [id number] Implanted:Qty : 1 on 02/22/2020 at [facility] Shoulder Implant Left: Shoulder Ruffin 05/17/2024 [id number] / / [id number] Scrw Reu 4.5x28 - [id number] Implanted:Qty : 1 on 02/22/2020 at [facility] Shoulder Implant Left: Shoulder Elinor 10/06/2024 [id number] / / [id number] Scrw Reu 4.5x24 - [id number] Implanted:Qty : 1 on 02/22/2020 at [facility] Shoulder Implant Left: Shoulder Elinor 04/14/2024 [id number] / / [id number] Explanted Type Area Cylinder Honer Device Identifier Shelf Expiration Date Model / Serial / Lot Scrw Reu 6.5x28 - [id number] Explanted:Qty : 1 on 02/22/2020 at [facility] Shoulder Implant Left: Shoulder Elinor 05/09/2024 [id number] / / [id number] Procedures Procedure Name Priority Date/Time Associated Diagnosis Comments GA ARTHCS ASP/INJ MJR JT W US Routine 06/09/2025 10:30 AM CDT Trochanteric Bursitis Right Hip Pain Hip Right FL SACROILIAC JOINT INJECTION BILATERAL RAD - Routine (most inpatients and all outpatients) 06/02/2025 10:43 AM CDT Pain Sacral VALPROIC ACID LEVEL, TOT, S Routine 05/26/2025 11:18 AM CDT Bipolar I Disorder (HCC) Anxiety Generalized Disorder Other Director Of Web Marketing Current Drug Therapy ECG Routine 05/26/2025 11:05 AM CDT Pain Chest IRON AND TOT IRON-BINDING CAPACITY, S/P Routine 05/26/2025 9:32 AM CDT Deficiency Iron Personal History FERRITIN, S Routine 05/26/2025 9:32 AM CDT Deficiency Iron Personal History VITAMIN B12 ASSAY, S Routine 05/26/2025 9:32 AM CDT Deficiency Vitamin B12 CBC WITH DIFFERENTIAL, B Routine 05/26/2025 9:32 AM CDT Deficiency Vitamin B12 VITAMIN D, IMMUNOASSAY, TOTAL, S Routine 05/26/2025 9:32 AM CDT Deficiency Vitamin D LIPID PANEL, S Routine 05/26/2025 9:32 AM CDT Hyperlipidemia THYROID FUNCTION CASCADE, S Routine 05/26/2025 9:32 AM CDT Nodule Thyroid GLUCOSE, FASTING, S/P Routine 05/26/2025 9:32 AM CDT Diabetes Mellitus Type 2 Without Complication (HCC) COMPREHENSIVE METABOLIC PANEL, S/P Routine 05/26/2025 9:32 AM CDT Diabetes Mellitus Type 2 Without Complication (HCC) HEMOGLOBIN A1C, B Routine 05/26/2025 9:3 2 AM CDT Diabetes Mellitus Type 2 Without Complication (HCC) US THYROID RAD - Routine (most inpatients and all outpatients) 05/25/2025 10:43 AM CDT Nodule Thyroid DX SHOULDER LEFT 2+ VIEWS RAD - Routine (most inpatients and all outpatients) 03/25/2025 10:15 AM CDT 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 ALBUMIN, RANDOM, U Routine 03/23/2025 10:07 AM CDT Chronic Kidney Disease (CKD), Stage 3b Glomerular Filtration Rate (GFR) 30 To 44 (HCC) URINALYSIS WITH MICROSCOPIC Routine 03/23/2025 10:07 AM CDT Chronic Kidney Disease (CKD), Stage 3b Glomerular Filtration Rate (GFR) 30 To 44 (HCC) IRON AND TOT IRON-BINDING CAPACITY, S/P Routine 03/23/2025 10:02 AM CDT Chronic Kidney Disease (CKD), Stage 3b Glomerular Filtration Rate (GFR) 30 To 44 (HCC) FERRITIN, S Routine 03/23/2025 10:02 AM CDT Chronic Kidney Disease (CKD), Stage 3b Glomerular Filtration Rate (GFR) 30 To 44 (HCC) RENAL FUNCTION PANEL, S Routine 03/23/2025 10:02 AM CDT Chronic Kidney Disease (CKD), Stage 3b Glomerular Filtration Rate (GFR) 30 To 44 (HCC) CBC WITHOUT DIFFERENTIAL, B Routine 03/23/2025 10:02 AM CDT Chronic Kidney Disease (CKD), Stage 3b Glomerular Filtration Rate (GFR) 30 To 44 (HCC) BI BREAST SCREENING BILATERAL WITH TOMOSYNTHESIS RAD - Routine (most inpatients and all outpatients) 09/11/2024 11:19 AM COLLECTION CORRESPONDENT Screening Mammogram Breast Cancer BMD BONE DENSITY SPINE HIPS RAD - Routine (most inpatients and all outpatients) 05/20/2024 10:50 AM CDT Osteoporosis OPHTHALMOLOGY OFFICE VISIT (CLINIC) Routine 10/11/2023 9:56 AM COLLECTION CORRESPONDENT COLONOSCOPY Routine 05/18/2016 2:16 PM CDT HCV AB SCRN W/REFLEX TO HCV PCR, S Routine 10/03/2015 10:39 AM COLLECTION CORRESPONDENT from Last 3 Months or Most Recently Relevant to Health Maintenance Results * GA ARTHCS ASP/INJ MJR JT W US (06/09/2025 10:30 AM CDT) Narrative Manuel Walker M.D. - 06/09/2025 10:30 AM CDT Manuel Walker M.D. 06/09/2025 1:27 PM PM Soft Tissue injection Right Performed by: Manuel Walker M.D. Authorized by: Mya Molina APRN, C.N.P. Care team members present 1. Tae Montanez D.O. 2. Erica Dang LChrisPCandie PROCEDURE SUMMARY Indications: Trochanteric bursitis Pre procedure [...] fellow participated in the procedure, and the exchange consultant was present for the entire procedure. OPERATIVE NOTE INFORMATION Specimens: 0 Drains: 0 Estimated blood loss: 0 Implants: 0 Mya Molina APRN, C.N.P. PROCEDURE/MINOR SURGICA L ORDERABLES Final Result * FL SACROILIAC JOINT INJECTION BILATERAL (06/02/2025 10:43 AM CDT) Narrative Kang Valdovinos M.D. - 06/02/2025 11:00 AM CDT Kang Valdovinos M.D. 06/02/2025 10:57 AM FL Sacroiliac Joint Injection Bilateral Performed by: Kang Valdovinos M.D. Authorized by: Mya Molina APRN, C.N.P. Care team members present 1. Tae Montanez D.O. 2. Yari Edmondson LChrisPCandie PROCEDURE SUMMARY Indications: Sacroiliac Joint Pain Pre-procedural [...] fellow participated in the procedure, and the exchange consultant was present for the entire procedure. OPERATIVE NOTE INFORMATION Specimens: 0 Drains: 0 Estimated blood loss: 0 Implants: 0 us Mya L Emde BILINGUAL TRAINER, CChrisNChrisPChris IMG FLUOROSCOPY PROCEDU RES Final Result * Valproic Acid, Total (05/26/2025 11:18 AM CDT) Valproic Acid, Tot, S 70 50 - 125 mcg/mL 05/26/2025 1:46 PM CDT RDWG Blood (Blood, Venous) 05/26/2025 11:18 AM CDT 05/26/2025 1:14 PM CDT Bharathi Rain M.D. LAB BLOOD ADD-ON Final Result Performing Organization Address [facility] Co de Phone Number [facility] [address] [place] [address], [facility] RDWG [facility] [place] [address] [place] [address] * ECG 12 Lead (05/26/2025 11:05 AM CDT) Ventricular Rate ECG/Min 65 BPM MUSE GA Interval 156 ms MUSE QRSD Interval 102 ms MUSE QT Interval 374 ms MUSE QTC Interval 388 ms MUSE P [place] 32 degrees MUSE R [place] -7 degrees MUSE T Wave [place] 13 degrees MUSE 05/26/2025 11:0 5 AM [...] was found Reviewed by ERICH Delgado us Nadiya Ramesh M.D. ECG ORDERABLES Final Resu lt Performing Organization Address City/[facility] [address]/ZIP Co de Phone Number MUSE NA * Lipid Panel (05/26/2025 9:32 AM CDT) [...] M.D. LAB BLOOD ADD-ON Final Resu lt [facility] [address] [place] [id number], [facility] in [address] [address] * Vitamin D, Immunoassay, Total, Serum (05/26/2025 9:32 AM CDT) Pathologist [facility] Vitamin D, Immunoassay, Total, S 46 20 - 80 ng/mL 05/26/2025 4:44 PM CDT ECLR Comment: Optimum levels within the healthy population are 20-50, patients with bone disease may benefit from high levels within this range Blood (Blood, Venous) 05/26/2025 9:32 AM CDT 05/26/2025 3:58 PM CDT us Elaine Russo M.D. LAB BLOOD ADD-ON Final Resu lt Performing Organization Address City/[facility] [address]/ZIP Co de Phone Number [facility] [address] [place] [address], [facility] ECLR [facility] [place] [address] * Thyroid Function [place] (05/26/2025 9:32 AM CDT) [facility] TSH, Sensitive 2.3 0.3 - 4.2 mIU/L 05/26/2025 12:05 PM CDT CNFL Blood (Blood, Venous) 05/26/2025 9:32 AM CDT 05/26/2025 9:36 AM CDT us Elaine Russo M.D. LAB BLOOD ADD-ON Final Resu lt [facility] [address] [place] [address], [facility] [address] [address] * Iron and Total Iron-Binding Capacity (05/26/2025 9:32 AM CDT) Only the most recent of2 resultswithin the time period is included. [facility] Iron 64 35 - 145 mcg/dL 05/26/2025 1:41 PM CDT RDWG Total Iron Binding Capacity 353 250 - 400 mcg/dL 05/26/2025 1:41 PM CDT RDWG Percent Saturation 18 14 - 50 % 05/26/2025 1:41 PM CDT RDWG Blood (Blood, Venous) 05/26/2025 9:32 AM CDT 05/26/2025 1:15 PM CDT us Elaine Russo M.D. LAB BLOOD ADD-ON Final Resu lt [facility] [address] [place] [address], [facility] RDWG [facility] [place] [address] [place] [address] * (ABNORMAL) CBC with Differential, Blood (05/26/2025 9:32 AM CDT) [facility] Hemoglobin 11.4(L) 11.6 - 15.0 g/dL 05/26/2025 [...] ADD-ON Final Resu lt Performing Organization Address [facility] [place] [address], [place] [address] * (ABNORMAL) Hemoglobin A1c (05/26/2025 9:32 AM CDT) Hemoglobin A1c, B 5.9(H) 4.2 - 5.6 % 05/26/2025 10:04 AM CDT FL Comment: Hemoglobin A1c values of 5.7-6.4 percent indicate an increased risk for developing diabetes mellitus. In diabetic patients, HbA1c goals should be discussed with healthcare provider. Blood (Blood, Venous) 05/26/2025 9:32 AM CDT 05/26/2025 9:36 AM CDT us Elaine Russo M.D. LAB BLOOD ADD[place] [address], [place] [address] * (ABNORMAL) Glucose, Fasting (05/26/2025 9:32 AM CDT) Glucose, P 113(H) 70 - 100 mg/dL 05/26/2025 9:59 AM CDT CNFL Last Intake 13 hr 05/26/2025 9:36 AM CDT CNFL Blood (Blood, Venous) 05/26/2025 9:32 AM CDT 05/26/2025 9:36 AM CDT Elaine Russo M.D. LAB BLOOD NON ADD-ON Final Result Performing Organization Address City/[facility] [address]/[facility] Co de Phone Number [facility] [address] [place] [address], [facility] in [address] [address] * Ferritin (05/26/2025 9:32 AM CDT) Only the most recent of2 resultswithin the time period is included. Ferritin, S 152 11 - 328 mcg/L 05/26/2025 1:50 PM CDT RDWG Comment: Biotin has been identified by the blood bank laboratory professional as a potential interfering substance. Higher concentrations of biotin may be found in multivitamins, hair/nail supplements, and workout supplements. If the result does not match clinical observations, repeat testing after patient refrains from the use of supplements for at least 12 hours. Blood (Blood, Venous) 05/26/2025 9:32 AM CDT 05/26/2025 1:15 PM CDT Elaine Russo M.D. LAB BLOOD ADD-ON Final Resu lt [facility] [address] [place] [address], [place] RDWG [facility] [place] [address] [address] * (ABNORMAL) Vitamin B12 Assay (05/26/2025 9:32 AM CDT) Vitamin B12 Assay, S >2000(H) 232 - 1245 ng/L 05/26/2025 4:45 PM CDT ECLR Comment: Biotin has been identified by the blood bank laboratory professional as a potential interfering substance. Higher concentrations of biotin may be found in multivitamins, hair/nail supplements, and workout supplements. If the result does not match clinical observations, repeat testing after patient refrains from the use of supplements for at least 12 hours. Blood (Blood, Venous) 05/26/2025 9:32 AM CDT 05/26/2025 3:58 PM CDT us Elaine Russo M.D. LAB BLOOD ADD-ON Final Resu lt [facility] [address] [place] [address], [facility] ECLR [facility] in [address] [address] * (ABNORMAL) Comprehensive Metabolic Panel (05/26/2025 9:32 [...] ADD-ON Final Resu lt Performing Organization Address [facility]/State/ZIP Co de Phone Number [facility] [address] [place] [address], [facility] CNFL [facility] in [address] [address] * US Thyroid (05/25/2025 10:43 AM CDT) [...] echogenic foci: no echogenic foci (0). The [place] ultrasound score is 1. Prior FNA with [...] Nodule Care Process Model established by the [facility] [place]. https://[email or web address].[email or web address].org/topic/clinical-answers/cnt-56829966/sec-203 62663 The AskMayoExpert Thyroid Nodule CPM states the [...] echogenic foci: no echogenic foci (0). The [place] ultrasound score is 1. Prior FNA with [...] ThyroidNodule Care Process Model established by the [facility] [place].https://[email or web address].org/topic/clinical-answers/cnt-33621599 /sec- [id number] The AskMayoExpert Thyroid Nodule CPM states the followingrecommendations: No suspicion or Extremely [...] intermediate suspicion are likely not substantially changed. Elaine Russo M.D. IMG US PROCEDURES Final Res ult * DX Shoulder Left 2+ Views (03/25/2025 10:15 AM CDT) Anatomical Region Laterality Modality Upper Extremity, Shoulder, M usculoskeletal RST LOS, Musculoskeletal ARZ LOS, Muskuloskeletal FLA LOS Left Digit al Radiography Impressions 03/25/2025 10:42 AM CDT Left reverse TSA. No radiographic evidence of loosening. Moderate amount of heterotopic ossification/debris about the shoulder, most notable along the inferior glenoid. Underlying soft tissue anchors in the proximal humerus. Resection of the distal clavicle. No significant change since 08/29/2022. Narrative 03/25/2025 10:42 AM CDT EXAM: DX SHOULDER LEFT 2+ VIEWS Procedure Note Sandra Roper M.D. - 03/25/2025 EXAM: DX SHOULDER LEFT 2+ VIEWS IMPRESSION: Left reverse TSA. No radiographic evidence of loosening. Moderate amountof heterotopic ossification/debris about the shoulder, most notable alongthe inferior glenoid. Underlying soft tissue anchors in the proximalhumerus. Resection of the distal clavicle. No significant change since 08/29/2022. Sarita LINTON, P.A.-C. IMG DIAGNOSTIC IM AGING PROCEDURES Final Result * Albumin, Random, Urine (03/23/2025 10:07 AM CDT) Microalbumin 28.6 mg/L 03/23/2025 1:41 PM CDT RDWG Creatinine 382 mg/dL 03/23/2025 1:41 PM CDT RDWG Albumin/Creatinin e Ratio 7 <25 mg/g 03/23/2025 1:41 PM CDT RDWG Urine (Urine, Voided) 03/23/2025 10:07 AM CDT 03/23/2025 12:56 PM CDT us Franck Lindo M.D. LAB URINE ORDERABLES Final Result [facility] [address] [place] [address], [place] RDW[facility] [place] [address] [place] [address] * (ABNORMAL) Urinalysis, with Microscopic: Urine, Voided (03/23/2025 10:07 AM CDT) Source Urine, Urine, Voided 03/23/2025 10:07 AM CDT CNFL Clarity Clear Clear 03/23/2025 10:11 AM CDT CNFL Color Yellow 03/23/2025 10:11 AM CDT CNFL Comment: ----REFERENCE VALUE---- Colorless Yellow Margarita Blood Trace(A) Negative 03/23/2025 10:11 AM CDT CNFL Nitrite Negative Negative 03/23/2025 10:11 AM CDT CNFL Leukocyte Esterase Trace(A) Negative 03/23/2025 10:11 AM CDT CNFL Protein 30(A) mg/dL 03/23/2025 10:11 AM CDT CNFL Comment: ----REFERENCE VALUE---- Negative Trace Glucose Negative Negative mg/dL 03/23/2025 10:11 AM CDT CNFL Ketones, QI(U) Trace(A) Negative mg/dL 03/23/2025 10:11 AM CDT CNFL Bilirubin Small(A) Negative 03/23/2025 10:11 AM CDT CNFL pH 5.5 5.0 - 8.0 03/23/2025 10:11 AM CDT CNFL Specific [place] 1.025 1.001 - 1.035 03/23/2025 10:11 AM CDT CNFL Urobilinogen 1.0 0.2 - 1.0 mg/dL 03/23/2025 10:11 AM CDT CNFL White Blood Cells 4-10 /hpf 03/23/2025 11:03 AM CDT CNFL Comment: ----REFERENCE VALUE---- Males: 0-3 Females: 0-10 Unknown: 0-10 Red Blood Cells Occ-2 0 - 2 /hpf 11:03 AM CDT CNFL Hyaline Casts 4-10 /lpf 03/23/2025 11:03 AM CDT CNFL Squamous Cells 11-20 /hpf 03/23/2025 11:03 AM CDT CNFL Renal Cells Occ-3(A) None Seen /hpf 03/23/2025 11:03 AM CDT CNFL Bacteria Present(A) None Seen 03/23/2025 11:03 AM CDT CNFL Urine (Urine, Voided) 03/23/2025 10:07 AM CDT 03/23/2025 10:07 AM CDT us Franck Lindo M.D. LAB URINE ORDERABLES Final Result Performing Organization Address City/State/[facility] Co de Phone Number [facility] [address] [place] [address], [facility] CNFL [facility] [place] [address] * (ABNORMAL) Renal Function Panel (03/23/2025 10:02 AM CDT) Potassium, P 4.1 3.6 - 5.2 mmol/L 03/23/2025 10:25 AM CDT CNFL Sodium, P 138 135 - 145 mmol/L 03/23/2025 10:25 AM CDT CNFL Chloride, P 105 98 - 107 mmol/L 03/23/2025 10:25 AM CDT CNFL Bicarbonate, P 21(L) 22 - 29 mmol/L 03/23/2025 10:25 AM CDT CNFL Anion Gap, P 12 7 - 15 03/23/2025 10:25 AM CDT CNFL BUN (Blood Urea Nitrogen), P 33(H) 6 - 21 mg/dL 03/23/2025 10:25 AM CDT CNFL Creatinine 1.59(H) 0.59 - 1.04 mg/dL 03/23/2025 10:25 AM CDT CNFL Estimated GFR (eGFR) 35(L) >=60 mL/min/BSA 03/23/2025 10:25 AM CDT CNFL Comment: Estimated GFR calculated using the 2020 CKD_EPI creatinine equation. Calcium, Total, P 9.8 8.8 - 10.2 mg/dL 03/23/2025 10:25 AM CDT CNFL Glucose, P 124 70 - 140 mg/dL 03/23/2025 10:25 AM CDT CNFL Albumin, P 3.7 3.5 - 5.0 g/dL 03/23/2025 10:25 AM CDT CNFL Phosphorus (Inorganic), P 3.4 2.5 - 4.5 mg/dL 03/23/2025 10:25 AM CDT CNFL Blood (Blood, Venous) 03/23/2025 10:02 AM CDT 03/23/2025 10:04 AM CDT us Franck Lindo M.D. LAB BLOOD ADD-ON Final Resu lt [facility] [address] [place] [address], [facility] CNFL [facility] [place] [address] * (ABNORMAL) CBC without Differential (03/23/2025 10:02 AM CDT) Hemoglobin 11.9 11.6 - 15.0 g/dL 03/23/2025 10:08 AM CDT CNFL Hematocrit 37.3 35.5 - 44.9 % 03/23/2025 10:08 AM CDT CNFL Erythrocytes 3.86(L) 3.92 - 5.13 x10(12)/L 03/23/2025 10:08 AM CDT CNFL MCV 96.6 78.2 - 97.9 fL 03/23/2025 10:08 AM CDT CNFL RBC Distrib Width 13.4 12.2 - 16.1 % 03/23/2025 10:08 AM CDT CNFL Platelet Count 194 157 - 371 x10(9)/L 03/23/2025 10:08 AM CDT CNFL Leukocytes 6.0 3.4 - 9.6 x10(9)/L 03/23/2025 10:08 AM CDT CNFL Blood (Blood, Venous) 03/23/2025 10:02 AM CDT 03/23/2025 10:04 AM CDT us Franck Lindo M.D. LAB BLOOD ADD-ON Final Resu lt [facility] [address] [place] [address], [facility] CNFL [facility] in [address] [address] * BI Breast Screening Bilateral with Tomosynthesis (09/11/2024 11:19 AM COLLECTION CORRESPONDENT) Anatomical Region Laterality Modality Breast, Breast Imaging RST L OS, Breast Imaging ARZ LOS, Breast Imaging FLA LOS Bilateral Mammography Impressions 09/11/2024 1:47 PM COLLECTION CORRESPONDENT Negative. RECOMMENDATION: Annual Screening Mammogram ASSESSMENT: BI-RADS: 1: Negative. Narrative 09/11/2024 1:47 PM COLLECTION CORRESPONDENT EXAM: BI BREAST SCREENING BILATERAL WITH TOMOSYNTHESIS Current study was evaluated with a Computer Aided Detection (CAD) system. INDICATION: Screening mammogram. COMPARISON: Prior exam(s) were available and reviewed for comparison. DENSITY: a. The breast(s) are almost entirely fatty. FINDINGS: No mammographic findings of malignancy. Procedure Note Gregoria Montoya D.O. - 09/11/2024 EXAM: BI BREAST SCREENING BILATERAL WITH TOMOSYNTHESIS Current study was evaluated with a Computer Aided Detection (CAD) system. INDICATION: Screening mammogram. COMPARISON: Prior exam(s) were available and reviewed for comparison. DENSITY: a. The breast(s) are almost entirely fatty. FINDINGS: No mammographic findings of malignancy. IMPRESSION: Negative. RECOMMENDATION: Annual Screening Mammogram ASSESSMENT: BI-RADS: 1: Negative. us Elaine Russo M.D. IMG BI PROCEDURES Final Res ult * BMD Bone Density Spine Hips (05/20/2024 10:50 AM CDT) Anatomical Region Laterality Modality Hip, Lumbar Spine, Nuclear M edicine RST LOS, Musculoskeletal ARZ LOS, Muskuloskeletal FLA LOS N/A Radio graphic Imaging Impressions 05/20/2024 11:01 AM CDT Osteoporosis DualFemur (region: Neck Left) Narrative 05/20/2024 11:01 AM CDT EXAM: BMD BONE DENSITY SPINE HIPS Bone Mineral Density (BMD) analysis performed on TranSiC with serial number [id number]. COMPARISON: Serial Comparisons Left Total Hip results: Exam Date BMD T-score 06/01/2021 0.775 g/cm2 -1.8 03/08/2023 0.705 g/cm2 -2.4 05/20/2024 0.776 g/cm2 -1.8 Change vs. Previous (difference): 0.071 g/cm2 *Change vs. Previous (%): 10.1 % The absolute BMD change from previous, 0.071 g/cm2, is greater than least significant change: Yes The absolute BMD change from baseline, 0.001 g/cm2, is greater than least significant change: No Right Total Hip results: Exam Date BMD T-score 06/01/2021 0.788 g/cm2 -1.7 03/08/2023 0.739 g/cm2 -2.1 05/20/2024 0.787 g/cm2 -1.8 Change vs. Previous (difference): 0.048 g/cm2 *Change vs. Previous (%): 6.5 % The absolute BMD change from previous, 0.048 g/cm2, is greater than least significant change: Yes The absolute BMD change from baseline, -0.001 g/cm2, is greater than least significant change: No Combined Total Hip results: Exam Date BMD T-score 06/01/2021 0.782 g/cm2 -1.8 03/08/2023 0.722 g/cm2 -2.3 05/20/2024 0.781 g/cm2 -1.8 Change vs. Previous (difference): 0.059 g/cm2 *Change vs. Previous (%): 8.2 % The absolute BMD change from previous, 0.059 g/cm2, is greater than least significant change: Yes The absolute BMD change from baseline, -0.001 g/cm2, is greater than least significant change: No Spine results: Exam Date BMD T-score 06/01/2021 0.999 g/cm2 -1.4 03/08/2023 1.013 g/cm2 -1.4 05/20/2024 1.056 g/cm2 -1.0 Change vs. Previous (difference): 0.043 g/cm2 Change vs. Previous (%): 4.2 % The absolute BMD change from previous, 0.043 g/cm2, is greater than the least significant change: No The absolute BMD change from baseline, 0.057 g/cm2, is greater than the least significant change: Yes ----- FINDINGS: Left Hip: Femur Neck: BMD = 0.664 g/cm2 T-score = -2.7 Z-score = -1.1 Total Hip: BMD = 0.776 g/cm2 T-score = -1.8 Z-score = -0.5 Right Hip: Femur Neck: BMD = 0.694 g/cm2 T-score = -2.5 Z-score = -0.9 Total Hip: BMD = 0.787 g/cm2 T-score = -1.8 Z-score = -0.4 Lumbar Spine: L1: BMD = 0.939 g/cm2 L4: BMD = 1.144 g/cm2 Total Lumbar Spine (L1-L4 (L2,L3)): BMD = 1.056 g/cm2 T-score = -1.0 Z-score = 0.6 Trabecular Bone Score: L1-L4 (L2,L3): TBS = 1.633 < 1.23: low 1.23 -1.31: borderline > 1.31: normal A low TBS has been associated with increased risk of fractures in certain populations. TBS should not be used alone to determine treatment recommendations. It can be used in conjunction with BMD and FRAX to inform management. Please note: A more comprehensive DXA report, including images and graphs, is available in QREADS. In the absence of other causes of low BMD or demonstrated skeletal fragility, osteoporosis may be diagnosed in post-menopausal women and men at or above age 50 when the T-score is at or below -2.5 as defined by the WHO. Low bone density is present at T-scores between -1 and -2.5. The diagnosis in pre-menopausal women and men < age 50 can be based on low bone density or evidence of skeletal fragility in the appropriate clinical setting. Degenerative changes are present which may spuriously elevate the spine BMD measurement. Patient does not meet ISCD guidelines for FRAX calculations. (on treatment) Procedure Note Ricardo Carver M.D. - 05/20/2024 EXAM: BMD BONE DENSITY SPINE HIPS Bone Mineral Density (BMD) analysis performed on TranSiCwith serial number [id number]. COMPARISON: Serial Comparisons Left Total Hip results: Exam Date BMD T-score 06/01/2021 0.775 g/cm2 -1.8 03/08/2023 0.705 g/cm2 -2.4 05/20/2024 0.776 g/cm2 -1.8 Change vs. Previous (difference): 0.071 g/cm2 *Change vs. Previous (%): 10.1 % The absolute BMD change from previous, 0.071 g/cm2, is greater than least significant change: Yes The absolute BMD change from baseline, 0.001 g/cm2, is greater than least significant change: No Right Total Hip results: Exam Date BMD T-score 06/01/2021 0.788 g/cm2 -1.7 03/08/2023 0.739 g/cm2 -2.1 05/20/2024 0.787 g/cm2 -1.8 Change vs. Previous (difference): 0.048 g/cm2 *Change vs. Previous (%): 6.5 % The absolute BMD change from previous, 0.048 g/cm2, is greater than least significant change: Yes The absolute BMD change from baseline, -0.001 g/cm2, is greater than least significant change: No Combined Total Hip results: Exam Date BMD T-score 06/01/2021 0.782 g/cm2 -1.8 03/08/2023 0.722 g/cm2 -2.3 05/20/2024 0.781 g/cm2 -1.8 Change vs. Previous (difference): 0.059 g/cm2 *Change vs. Previous (%): 8.2 % The absolute BMD change from previous, 0.059 g/cm2, is greater than least significant change: Yes The absolute BMD change from baseline, -0.001 g/cm2, is greater than least significant change: No Spine results: Exam Date BMD T-score 06/01/2021 0.999 g/cm2 -1.4 03/08/2023 1.013 g/cm2 -1.4 05/20/2024 1.056 g/cm2 -1.0 Change vs. Previous (difference): 0.043 g/cm2 Change vs. Previous (%): 4.2 % The absolute BMD change from previous, 0.043 g/cm2, is greater than the least significant change: No The absolute BMD change from baseline, 0.057 g/cm2, is greater than the least significant change: Yes ----- FINDINGS: Left Hip: Femur Neck: BMD = 0.664 g/cm2 T-score = -2.7 Z-score = -1.1 Total Hip: BMD = 0.776 g/cm2 T-score = -1.8 Z-score = -0.5 Right Hip: Femur Neck: BMD = 0.694 g/cm2 T-score = -2.5 Z-score = -0.9 Total Hip: BMD = 0.787 g/cm2 T-score = -1.8 Z-score = -0.4 Lumbar Spine: L1: BMD = 0.939 g/cm2 L4: BMD = 1.144 g/cm2 Total Lumbar Spine (L1-L4 (L2,L3)): BMD = 1.056 g/cm2 T-score = -1.0 Z-score = 0.6 Trabecular Bone Score: L1-L4 (L2,L3): TBS = 1.633 < 1.23: low 1.23 -1.31: borderline > 1.31: normal A low TBS has been associated with increased risk of fractures in certainpopulations. TBS should not be used alone to determine treatmentrecommendations. It can be used in conjunction with BMD and FRAX to informmanagement. Please note: A more comprehensive DXA report, including images and graphs,is available in [facility]. In the absence of other causes of low BMD or demonstrated skeletalfragility, osteoporosis may be diagnosed in post-menopausal women and menat or above age 50 when the T-score is at or below -2.5 as defined by theWHO. Low bone density is present at T-scores between -1 and -2.5. The diagnosis in pre-menopausal women andmen < age 50 can be based on low bone density or evidence of skeletalfragility in the appropriate clinical setting. Degenerative changes are present which may spuriously elevate the spineBMD measurement. Patient does not meet ISCD guidelines for FRAX calculations. (ontreatment) IMPRESSION: Osteoporosis DualFemur (region: Neck Left) Elaine Russo M.D. IMG DXA PROCEDURES Final Re sult * Ophthalmology office visit (clinic) (10/11/2023 9:56 AM COLLECTION CORRESPONDENT) Carlos Lazo M.D. OUTPATIENT RETURN VISITS Final Result * Colonoscopy (05/18/2016 2:16 PM CDT) Anatomical Region Laterality Modality Other 05/18/2016 2:16 PM CDT Marito Stoll M.D. GI PROCEDURE ORDERABLES F inal Result * HCV AB Scrn w/Reflex to HCV PCR, S (10/03/2015 10:39 AM COLLECTION CORRESPONDENT) HCV Ab Screen, S Negative Negative [facility] Comment:Ukvbdv-[id number] rat io is <1.00. 10/03/2015 10:3 9 AM COLLECTION CORRESPONDENT 10/03/2015 10:39 AM COLLECTION CORRESPONDENT us Historical Provider LAB MICROBIOLOGY - BLOOD ORD ERABLES Final Result [facility] [address] from Last 3 Months or Most Recently Relevant to Health Maintenance Insurance [employer] Member Subscriber Plan / Payer (Ef fective 2020-Present) Name:Britt Cleveland Relation to Subscriber:Self Name:Britt Cleveland Payer ID:[id number] (NAIC) _[id number] Type:HMO Address: [address] Advance Directives For more information, please contact: [phone] Documents on File Type Date Recorded Patient Theater Usher Expl anation Advance Directives 10/02/2017 12:00 AM Leg acy document. See document viewer. Care Teams Directory Operator Relationship Specialty Start Date End Date Elaine Russo M.D. EMELY: [phone] [id number] [id number] PCP - General 02/02/22 Dr. Caro-L[facility] Dental Dentist 05/25/24
[2025-06-12] MEDS: ACETAMINOPHEN 500 MG TABLET 1000 MG PO (02:58)
[2025-06-12] MEDS: TRAMADOL HCL 50 MG TABLET PO (04:02)
== END 2025-06-12 09:46 | disposition other institution (70) ==
PROVIDERS: Family Medicine; Emergency Provider Family Medicine; PCP Family Medicine
DX: S12.200A Unspecified displaced fracture of third cervical vertebra, initial encounter for closed fracture (principal); S80.12XA Contusion of left lower leg, initial encounter; W01.0XXA Fall on same level from slipping, tripping and stumbling without subsequent striking against object, initial encounter; R39.9 Unspecified symptoms and signs involving the genitourinary system
CPT/HCPCS: 72125; 73560; 73590; 81001; 87086; 99284; 99285; A9270

== ENCOUNTER 2025-06-12 09:30 | Outpatient (CLI) | payer MEDICARE, SELFPAY | END 2025-06-12 09:31 | disposition home or self-care (01) | LOC: AMB 06-14 12:51 | PROVIDERS: PCP Family Medicine; Visit Provider Family Medicine | DX: S12.200A Unspecified displaced fracture of third cervical vertebra, initial encounter for closed fracture (principal); S80.12XA Contusion of left lower leg, initial encounter | CPT/HCPCS: A0425; A0433 ==